=== PATIENT | male | born 1980 | race Caucasian/White ===

== ENCOUNTER 2018-04-12 19:46 | Emergency (ER) | payer OTHER ==
--- NOTE | 2018-04-12 22:17 | ED ---
General Adult HPI - General Chief complaint: Anxiety Stated complaint: not feeling well Time Seen by Provider: 04/12/18 21:57 Source: patient, family, RN notes reviewed, old records reviewed Mode of arrival: ambulatory Limitations: no limitations - History of Present Illness Initial comments: 37-year-old male history of PTSD, and anxiety presents with worsening anxiety. Patient is on multiple medications. He is followed by both psychiatry and neurosurgery, and neurology. He does have a remote history of intracranial tumor status post resection. He states that over the past several months he's had worsening issues with anxiety. He is also had both auditory and visual hallucinations. Patient denies suicidal or homicidal ideation. He believes that these issues are medication related. - Related Data Home Medications Medication Instructions Recorded Confirmed Desmopressin [Ddavp] 0.3 mg PO BID 04/12/18 04/12/18 Droxidopa [Northera] 100 mg PO TID 04/12/18 04/12/18 Fludrocortisone [Florinef] 0.1 mg PO DAILY 04/12/18 04/12/18 Hydrocortisone [Cortef] 15 mg PO DAILY@1200 04/12/18 04/12/18 Hydrocortisone [Cortef] 20 mg PO DAILY 04/12/18 04/12/18 Levothyroxine Sodium [Synthroid] 150 mcg PO DAILY 04/12/18 04/12/18 Loperamide HCl [Imodium A-D] 2 mg PO DAILY 04/12/18 04/12/18 Midodrine HCl [ProAmatine] 30 mg PO TID 04/12/18 04/12/18 Omeprazole 40 mg PO DAILY 04/12/18 04/12/18 PARoxetine HCL [Paxil] 40 mg PO DAILY 04/12/18 04/12/18 Potassium Chloride ER [K-Dur 20] 20 meq PO BID 04/12/18 04/12/18 Testosterone Cypionate 100 mg IM TU 04/12/18 04/12/18 [Depo-Testosterone] busPIRone HCl [Buspar] 10 mg PO TID 04/12/18 04/12/18 Allergies Allergy/AdvReac Type Severity Reaction Status Date / Time No Known Allergies Allergy Verified 04/12/18 22:20 Review of Systems ROS Statement: Those systems with pertinent positive or pertinent negative responses have been documented in the HPI. ROS Other: All systems not noted in ROS Statement are negative. Past Medical History Past Medical History: Cancer, Thyroid Disorder History of Any Multi-Drug Resistant Organisms: None Reported Additional Past Surgical History / Comment(s): sinus surgery Past Psychological History: Anxiety, Depression, PTSD Smoking Status: Current every day smoker Past Alcohol Use History: None Reported Past Drug Use History: None Reported General Exam Limitations: no limitations General appearance: alert, in no apparent distress Head exam: Present: atraumatic, normocephalic Eye exam: Present: normal appearance, PERRL, EOMI ENT exam: Present: normal exam, normal oropharynx Neck exam: Present: normal inspection, full ROM. Absent: tenderness Respiratory exam: Present: normal lung sounds bilaterally. Absent: respiratory distress, wheezes Cardiovascular Exam: Present: regular rate, normal rhythm GI/Abdominal exam: Present: soft. Absent: distended, tenderness, guarding Extremities exam: Present: normal inspection, normal capillary refill. Absent: pedal edema Back exam: Present: normal inspection, full ROM Neurological exam: Present: alert, oriented X3, CN II-XII intact. Absent: motor sensory deficit Psychiatric exam: Present: anxious Skin exam: Present: warm, dry, intact. Absent: cyanosis, diaphoretic Course Vital Signs 04/12/18 19:55 Temperature 99.1 F Pulse Rate 98 Respiratory 20 Rate Blood Pressure 151/90 O2 Sat by Pulse 97 Oximetry Medical Decision Making - Medical Decision Making Further history obtained, patient has had these symptoms ongoing, he was evaluated at [facility]. He did receive a workup at that time which included CAT scan, these records were reviewed, patient had computed tomography scan on March 04 which showed calcification in the sella turcica consistent with his history. Patient does have a neurologist, he does have a psychiatrist and therapist. His symptoms seem more neurological or psychiatric at this time. He is offered a psych evaluation the emergency department and he declines. He does have support system at home, he has no suicidal or homicidal ideation. He has an appointment with his primary care physician tomorrow. He will maintain this appointment and will follow-up with his neurologist and his psychiatrist. - Lab Data Result diagrams: 04/12/18 22:30 04/12/18 22:30 Lab Results 04/12/18 04/12/18 04/12/18 Range/Units 22:30 22:30 22:30 WBC 9.0 (3.8-10.6) k/uL RBC 4.70 (4.30-5.90) m/uL Hgb 13.8 (13.0-17.5) gm/dL Hct 40.7 (39.0-53.0) % MCV 86.8 (80.0-100.0) fL MCH 29.3 (25.0-35.0) pg MCHC 33.8 (31.0-37.0) g/dL RDW 15.0 (11.5-15.5) % Plt Count 378 (150-450) k/uL Neutrophils % 72 % Lymphocytes % 17 % Monocytes % 7 % Eosinophils % 2 % Basophils % 1 % Neutrophils # 6.5 (1.3-7.7) k/uL Lymphocytes # 1.6 (1.0-4.8) k/uL Monocytes # 0.7 (0-1.0) k/uL Eosinophils # 0.2 (0-0.7) k/uL Basophils # 0.1 (0-0.2) k/uL Sodium 138 (137-145) mmol/L Potassium 4.0 (3.5-5.1) mmol/L Chloride 102 (98-107) mmol/L Carbon Dioxide 24 (22-30) mmol/L Anion Gap 12 mmol/L BUN 15 (9-20) mg/dL Creatinine 0.90 (0.66-1.25) mg/dL Est GFR (CKD-EPI)AfAm >90 (>60 ml/min/1.73 sqM) Est GFR (CKD-EPI)NonAf >90 (>60 ml/min/1.73 sqM) Glucose 112 H (74-99) mg/dL Calcium 9.7 (8.4-10.2) mg/dL Total Bilirubin 0.2 (0.2-1.3) mg/dL AST 20 (17-59) U/L ALT 34 (21-72) U/L Alkaline Phosphatase 87 (38-126) U/L Total Protein 6.6 (6.3-8.2) g/dL Albumin 4.2 (3.5-5.0) g/dL Urine Opiates Screen Not Detected (NotDetected) Ur Oxycodone Screen Not Detected (NotDetected) Urine Methadone Screen Not Detected (NotDetected) Ur Propoxyphene Screen Not Detected (NotDetected) Ur Barbiturates Screen Not Detected (NotDetected) U Tricyclic Antidepress Not Detected (NotDetected) Ur Phencyclidine Scrn Not Detected (NotDetected) Ur Amphetamines Screen Not Detected (NotDetected) U Methamphetamines Scrn Not Detected (NotDetected) U Benzodiazepines Scrn Not Detected (NotDetected) Urine Cocaine Screen Not Detected (NotDetected) U Marijuana (THC) Screen Not Detected (NotDetected) Disposition Clinical Impression: Visual hallucination, Anxiety Disposition: HOME SELF-CARE Condition: Fair Instructions: Generalized Anxiety Disorder (ED), Hallucinations (ED) Additional Instructions: Please follow up with both her psychiatrist and her neurologist. Is patient prescribed a controlled substance at d/c from ED?: No Referrals: Alonso Rivas DO [Primary Care Provider] - 1-2 days Time of Disposition: 23:27
[2018-04-12 22:49] LABS: Basophils # (A) 0.1 k/uL (0-0.2); Basophils % (A) 1 %; Eosinophils # (A) 0.2 k/uL (0-0.7); Eosinophils % (A) 2 %; HCT 40.7 % (39.0-53.0); HGB 13.8 gm/dL (13.0-17.5); Lymphocytes # (A) 1.6 k/uL (1.0-4.8); Lymphocytes % (A) 17 %; MCH 29.3 pg (25.0-35.0); MCHC 33.8 g/dL (31.0-37.0); MCV 86.8 fL (80.0-100.0); Mean Platelet Volume 6.4; Monocytes # (A) 0.7 k/uL (0-1.0); Monocytes % (A) 7 %; Neutrophils # (A) 6.5 k/uL (1.3-7.7); Neutrophils % (A) 72 %; Platelet Count 378 k/uL (150-450)
[2018-04-12 22:58] LABS: ALT 34 U/L (21-72); AST 20 U/L (17-59); Albumin 4.2 g/dL (3.5-5.0); Alkaline Phosphatase 87 U/L (38-126); Anion Gap 12 mmol/L; Blood Urea Nitrogen 15 mg/dL (9-20); Calcium 9.7 mg/dL (8.4-10.2); Carbon Dioxide 24 mmol/L (22-30); Chloride 102 mmol/L (98-107); Glucose 112 mg/dL (74-99); Sodium 138 mmol/L (137-145); Total Bilirubin 0.2 mg/dL (0.2-1.3); Total Protein 6.6 g/dL (6.3-8.2)
[2018-04-12 23:04] LABS: Amphetamine Screen,Urine Not Detected (NotDetected); Barbiturate Screen,Urine Not Detected (NotDetected); Benzodiazepines Screen,Urine Not Detected (NotDetected); Cocaine Screen,Urine Not Detected (NotDetected); Methadone Screen, Urine Not Detected (NotDetected); Opiate Screen,Urine Not Detected (NotDetected); Oxycodone Screen, Urine Not Detected (NotDetected); Phencyclidine Screen,Urine Not Detected (NotDetected); Tricyclic Antidepressant,Urine Not Detected (NotDetected); Urn Cannabinoid Scrn Not Detected (NotDetected)
[2018-04-12 23:38] VITALS: BP 142/79; PULSE 107; RESP 18; TEMP 98
== END 2018-04-12 23:46 | disposition home or self-care (01) ==
LOC: EC 19:46
DX: F41.9 Anxiety disorder, unspecified (principal); R44.1 Visual hallucinations; R44.0 Auditory hallucinations; E07.9 Disorder of thyroid, unspecified; F32.9 Major depressive disorder, single episode, unspecified; F43.10 Post-traumatic stress disorder, unspecified; F17.200 Nicotine dependence, unspecified, uncomplicated; Z79.52 Long term (current) use of systemic steroids; Z79.899 Other long term (current) drug therapy
CPT/HCPCS: 36415; 80053; 80306; 85025; 99284

== ENCOUNTER 2019-07-23 11:10 | Emergency (ER) | payer OTHER ==
[2019-07-23 11:19] VITALS: RESP 17; TEMP 98.7
[2019-07-23] MEDS ORDERED: SODIUM CHLORIDE 0.9% 1,000 ML IV STA (11:33)
[2019-07-23] MEDS ORDERED: KETOROLAC 30 MG/ML 1 ML VIAL IVP STA (11:33)
--- NOTE | 2019-07-23 11:37 | ED ---
Abdominal Pain HPI - General Chief Complaint: Abdominal Pain Stated Complaint: RT FLANK PAIN Time Seen by Provider: 07/23/19 11:30 Source: patient, EMS, RN notes reviewed Mode of arrival: EMS Limitations: no limitations - History of Present Illness Initial Comments: This a 38 year old male presents emergency Department chief complaint of right flank pain. Patient states this was a sudden onset this morning after urinating. He has no history of stones. Patient has slight nausea but has resolved. No fevers or chills no prior abdominal surgeries. Patient has a history cancer.. Patient has no dysuria denies any right-sided abdominal pain no diarrhea no constipation. - Related Data Home Medications Medication Instructions Recorded Confirmed Desmopressin [Ddavp] 0.2 mg PO DAILY@0730 04/12/18 07/23/19 Fludrocortisone [Florinef] 0.1 mg PO DAILY@72904/12/18 07/23/19 Hydrocortisone [Cortef] 15 mg PO DAILY@1200 04/12/18 07/23/19 Hydrocortisone [Cortef] 20 mg PO DAILY@30 04/12/18 07/23/19 Loperamide HCl [Imodium A-D] 2 mg PO DAILY PRN 04/12/18 07/23/19 Midodrine HCl [ProAmatine] 10 mg PO TID@0730,1200,1630 04/12/18 07/23/19 Omeprazole 40 mg PO DAILY@162904/12/18 07/23/19 PARoxetine HCL [Paxil] 60 mg PO DAILY@72904/12/18 07/23/19 Potassium Chloride ER [K-Dur 20] 20 meq PO BID@1200,1630 04/12/18 07/23/19 Testosterone Cypionate 100 mg IM TU 04/12/18 07/23/19 [Depo-Testosterone] Aspirin EC [Ecotrin Low Dose] 81 mg PO DAILY@16307/23/19 07/23/19 Desmopressin [Ddavp] 0.1 mg PO DAILY@162907/23/19 07/23/19 Droxidopa [Northera] 300 mg PO TID@0730,1200,1630 07/23/19 07/23/19 Levothyroxine Sodium [Synthroid] 200 mcg PO DAILY@0730 07/23/19 07/23/19 Pyridoxine [Vitamin B-6] 50 mg PO DAILY@0730 07/23/19 07/23/19 Topiramate [Topamax] 50 mg PO BID@0730,1630 07/23/19 07/23/19 busPIRone HCL 15 mg PO TID@0730,1200,1630 07/23/19 07/23/19 lamoTRIgine [LaMICtal] 200 mg PO BID@0730,1630 07/23/19 07/23/19 Previous Rx's Medication Instructions Recorded Ketorolac [Toradol] 10 mg PO Q8HR #15 tab 07/23/19 Ondansetron Odt [Zofran Odt] 4 mg PO Q8HR PRN #10 tab 07/23/19 Tamsulosin [Flomax] 0.4 mg PO DAILY #7 cap 07/23/19 Allergies Allergy/AdvReac Type Severity Reaction Status Date / Time No Known Allergies Allergy Verified 07/23/19 11:32 Review of Systems ROS Statement: Those systems with pertinent positive or pertinent negative responses have been documented in the HPI. ROS Other: All systems not noted in ROS Statement are negative. Past Medical History Past Medical History: Cancer, Thyroid Disorder History of Any Multi-Drug Resistant Organisms: None Reported Additional Past Surgical History / Comment(s): sinus surgery Past Psychological History: Anxiety, Depression, PTSD Smoking Status: Current every day smoker Past Alcohol Use History: None Reported Past Drug Use History: Marijuana General Exam Limitations: no limitations General appearance: alert, in no apparent distress Head exam: Present: atraumatic, normocephalic, normal inspection Eye exam: Present: normal appearance, PERRL, EOMI. Absent: scleral icterus, conjunctival injection, periorbital swelling Neck exam: Present: normal inspection, full ROM. Absent: tenderness, meningismus, lymphadenopathy Respiratory exam: Present: normal lung sounds bilaterally. Absent: respiratory distress, wheezes, rales, rhonchi, stridor Cardiovascular Exam: Present: regular rate, normal rhythm, normal heart sounds. Absent: systolic murmur, diastolic murmur, rubs, gallop, clicks GI/Abdominal exam: Present: soft, tenderness (Mild right-sided), normal bowel sounds. Absent: distended, guarding, rebound, rigid Back exam: Present: CVA tenderness (R). Absent: CVA tenderness (L) Psychiatric exam: Present: normal affect, normal mood Skin exam: Present: warm, dry, intact, normal color. Absent: rash Course Vital Signs 07/23/19 11:13 Temperature 98.7 F Pulse Rate 66 Respiratory 17 Rate Blood Pressure 164/93 O2 Sat by Pulse 98 Oximetry - Reevaluation(s) Reevaluation #1: 07/23/19 13:00 Patient feels comfortable throat total updated on results. Medical Decision Making - Medical Decision Making Patient lab CT urinalysis. Urinalysis reveals hematuria. CT shows evidence of mild obstructive 4 mm right ureteral stone. Patient was improved after Toradol. Patient is stable for discharge will follow-up with urology if needed will be provided Ruth's, Toradol, Zofran, codeine. - Lab Data Result diagrams: 07/23/19 11:45 07/23/19 11:45 Lab Results 07/23/19 07/23/19 07/23/19 Range/Units 11:45 11:45 11:45 WBC 12.3 H (3.8-10.6) k/uL RBC 4.86 (4.30-5.90) m/uL Hgb 13.2 (13.0-17.5) gm/dL Hct 43.0 (39.0-53.0) % MCV 88.5 (80.0-100.0) fL MCH 27.2 (25.0-35.0) pg MCHC 30.7 L (31.0-37.0) g/dL RDW 15.8 H (11.5-15.5) % Plt Count 374 (150-450) k/uL Neutrophils % 81 % Lymphocytes % 10 % Monocytes % 5 % Eosinophils % 1 % Basophils % 1 % Neutrophils # 10.0 H (1.3-7.7) k/uL Lymphocytes # 1.3 (1.0-4.8) k/uL Monocytes # 0.7 (0-1.0) k/uL Eosinophils # 0.2 (0-0.7) k/uL Basophils # 0.1 (0-0.2) k/uL Sodium 142 (137-145) mmol/L Potassium 4.1 (3.5-5.1) mmol/L Chloride 110 H (98-107) mmol/L Carbon Dioxide 22 (22-30) mmol/L Anion Gap 10 mmol/L BUN 15 (9-20) mg/dL Creatinine 1.10 (0.66-1.25) mg/dL Est GFR (CKD-EPI)AfAm >90 (>60 ml/min/1.73 sqM) Est GFR (CKD-EPI)NonAf 86 (>60 ml/min/1.73 sqM) Glucose 119 H (74-99) mg/dL Calcium 9.6 (8.4-10.2) mg/dL Total Bilirubin 0.5 (0.2-1.3) mg/dL AST 31 (17-59) U/L ALT 38 (21-72) U/L Alkaline Phosphatase 61 (38-126) U/L Total Protein 7.1 (6.3-8.2) g/dL Albumin 4.3 (3.5-5.0) g/dL Amylase 42 (30-110) U/L Lipase 50 (23-300) U/L Urine Color Yellow Urine Appearance Turbid (Clear) Urine pH 7.0 (5.0-8.0) Ur Specific [place] 1.026 (1.001-1.035) Urine Protein Trace H (Negative) Urine Glucose (UA) Negative (Negative) Urine Ketones Negative (Negative) Urine Blood Moderate H (Negative) Urine Nitrite Negative (Negative) Urine Bilirubin Negative (Negative) Urine Urobilinogen <2.0 (<2.0) mg/dL Ur Leukocyte Esterase Negative (Negative) Urine RBC 152 H (0-5) /hpf Urine WBC 5 (0-5) /hpf Amorphous Sediment Moderate H (None) /hpf Urine Mucus Occasional H (None) /hpf Disposition Clinical Impression: Right ureteral calculus Disposition: HOME SELF-CARE Condition: Stable Instructions (If sedation given, give patient instructions): Kidney Stones (ED) Additional Instructions: Please return to the Emergency Department if symptoms worsen or any other concerns. Prescriptions: Tamsulosin [Flomax] 0.4 mg PO DAILY #7 cap Ketorolac [Toradol] 10 mg PO Q8HR #15 tab Ondansetron Odt [Zofran Odt] 4 mg PO Q8HR PRN #10 tab PRN Reason: Nausea Is patient prescribed a controlled substance at d/c from ED?: No Referrals: None,Stated [Primary Care Provider] - 1-2 days Bishop Valdivia MD [STAFF PHYSICIAN] - 1-2 days Time of Disposition: 13:01
[2019-07-23 12:00] LABS: Basophils # (A) 0.1 k/uL (0-0.2); Basophils % (A) 1 %; Eosinophils # (A) 0.2 k/uL (0-0.7); Eosinophils % (A) 1 %; HGB 13.2 gm/dL (13.0-17.5); Lymphocytes # (A) 1.3 k/uL (1.0-4.8); Lymphocytes % (A) 10 %; MCH 27.2 pg (25.0-35.0); MCHC 30.7 g/dL (31.0-37.0); MCV 88.5 fL (80.0-100.0); Mean Platelet Volume 7.2; Monocytes # (A) 0.7 k/uL (0-1.0); Monocytes % (A) 5 %; Neutrophils % (A) 81 %; Platelet Count 374 k/uL (150-450); RBC 4.86 m/uL (4.30-5.90); RDW 15.8 % (11.5-15.5); WBC 12.3 k/uL (3.8-10.6)
[2019-07-23 12:06] LABS: Amorphous Sediment,Urine Moderate /hpf; Appearance,Urine Turbid (Clear); Bilirubin,Urine Negative (Negative); Blood,Urine Moderate (Negative); Color,Urine Yellow; Glucose,Urine (UA) Negative (Negative); Ketones,Urine Negative (Negative); Leukocyte Esterase,Urine Negative (Negative); Mucus,Urine Occasional /hpf; Nitrite,Urine Negative (Negative); Protein,Urine Trace (Negative); RBC,Urine 152 /hpf (0-5); Specific Gravity,Urine 1.026 (1.001-1.035); Urobilinogen,Urine <2.0 mg/dL (<2.0)
[2019-07-23 12:16] LABS: ALT 38 U/L (21-72); AST 31 U/L (17-59); African American GFR (CKD) >90 (>60 ml/min/1.73 sqM); Albumin 4.3 g/dL (3.5-5.0); Alkaline Phosphatase 61 U/L (38-126); Amylase 42 U/L (30-110); Anion Gap 10 mmol/L; Blood Urea Nitrogen 15 mg/dL (9-20); Calcium 9.6 mg/dL (8.4-10.2); Carbon Dioxide 22 mmol/L (22-30); Chloride 110 mmol/L (98-107); Glucose 119 mg/dL (74-99); Sodium 142 mmol/L (137-145); Total Bilirubin 0.5 mg/dL (0.2-1.3); Total Protein 7.1 g/dL (6.3-8.2)
[2019-07-23 12:18] LABS: Potassium 4.1 mmol/L (3.5-5.1)
--- NOTE | 2019-07-23 12:57 | CT ---
EXAMINATION TYPE: CT abdomen pelvis wo con DATE OF EXAM: 07/23/2019 COMPARISON: None HISTORY: 38-year-old male Rt flank pain CT DLP: 1725.9 mGycm. Automated exposure control for dose reduction was used. TECHNIQUE: Contiguous axial scanning of the abdomen and pelvis without IV contrast. Coronal and sagit surya reconstructions performed. FINDINGS: Heart normal size without pericardial effusion. Lung bases clear without pleural effusion. Liver enlarged at 19.7 cm. There may be mild underlying fatty infiltration. Gallbladder, adrenal glands, left kidney, spleen, and pancreas show no gross abnormality by noncontra st CT. There is mild pelvocaliectasis on the right and slight asymmetric mural prominence on the right. Ther e is a 4 mm calculus at the distal right ureter, axial image 129. No dilated small bowel, free fluid, or free air. No mesenteric or retroperitoneal lymphadenopathy. Scattered mild stool. Normal appendix. No pericolonic inflammatory changes. Circumferential bladder wall thickening. Left-sided pelvic phlebolith. Patulous left inguinal canal. No abnormal fluid collection in the pelvis or pelvic lymphadenopathy. Bones: Mild degenerative changes of the hips with prominent anterior and these junctions and fibrocys tic change. No osseous destructive process. IMPRESSION: 1. A 4 mm distal right ureteral calculus with mild obstructive uropathy. 2. Hepatomegaly (19.7 cm). 3. 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 Consider outp atient orthopedic referral.
[2019-07-23] MEDS ORDERED: ACET/COD 300 MG/30 MG STARTER PACK 6 TAB BTL PO STA (13:01)
[2019-07-23 13:20] VITALS: BP 157/94; PULSE 68
== END 2019-07-23 13:20 | disposition home or self-care (01) ==
LOC: EC 11:10
DX: N20.1 Calculus of ureter (principal); F17.200 Nicotine dependence, unspecified, uncomplicated; E07.9 Disorder of thyroid, unspecified; F43.10 Post-traumatic stress disorder, unspecified; F41.9 Anxiety disorder, unspecified; F32.9 Major depressive disorder, single episode, unspecified; Z79.82 Long term (current) use of aspirin; Z79.899 Other long term (current) drug therapy
CPT/HCPCS: 36415; 80053; 82150; 83690; 85025; 81001; 74176; 99284; 96374; 96361; J1885

== ENCOUNTER 2021-06-05 12:50 | Emergency (ER) | payer MEDICARE, OTHER ==
[2021-06-05 13:29] VITALS: BP 144/83; PULSE 87; RESP 18; TEMP 98.3
--- NOTE | 2021-06-05 13:39 | ED ---
Extremity Problem HPI - General Chief complaint: Extremity Problem,Nontraumatic Stated complaint: Rt Leg Numbness/Pain/Adrenal Insufficiency Time Seen by Provider: 06/05/21 13:32 Source: patient Mode of arrival: wheelchair Limitations: no limitations - History of Present Illness Initial comments: 40-year-old male presents to emergency Department with a chief complaint of right leg pain. Patient reports this is typical type of pain for him and has been occurring for many years but now it is worse than usual. He states it feels like a nerve pain that is sharp shooting in nature. Patient reports it can start randomly throughout the leg and move in no specific direction. He also reports bilateral lower extremity numbness but states has been persistent for many years ever since he was in the . He denies taking any medication to alleviate the symptoms. He denies any color changes in the leg or the foot. He denies any back pain or injuries to the leg. - Related Data Home Medications Medication Instructions Recorded Confirmed Desmopressin [Ddavp] 0.2 mg PO DAILY@72904/12/18 07/23/19 Fludrocortisone [Florinef] 0.1 mg PO DAILY@72904/12/18 07/23/19 Hydrocortisone [Cortef] 15 mg PO DAILY@1200 04/12/18 07/23/19 Hydrocortisone [Cortef] 20 mg PO DAILY@72904/12/18 07/23/19 Loperamide HCl [Imodium A-D] 2 mg PO DAILY PRN 04/12/18 07/23/19 Midodrine HCl [ProAmatine] 10 mg PO TID@0730,1200,1630 04/12/18 07/23/19 Omeprazole 40 mg PO DAILY@162904/12/18 07/23/19 PARoxetine HCL [Paxil] 60 mg PO DAILY@72904/12/18 07/23/19 Potassium Chloride ER [K-Dur 20] 20 meq PO BID@1200,1630 04/12/18 07/23/19 Testosterone Cypionate 100 mg IM TU 04/12/18 07/23/19 [Depo-Testosterone] Aspirin EC [Ecotrin Low Dose] 81 mg PO DAILY@162907/23/19 07/23/19 Desmopressin [Ddavp] 0.1 mg PO DAILY@162907/23/19 07/23/19 Droxidopa [Northera] 300 mg PO TID@0730,1200,1630 07/23/19 07/23/19 Levothyroxine Sodium [Synthroid] 200 mcg PO DAILY@0730 07/23/19 07/23/19 Pyridoxine [Vitamin B-6] 50 mg PO DAILY@0730 07/23/19 07/23/19 Topiramate [Topamax] 50 mg PO BID@0730,1630 07/23/19 07/23/19 busPIRone HCL 15 mg PO TID@0730,1200,1630 07/23/19 07/23/19 lamoTRIgine [LaMICtal] 200 mg PO BID@0730,1630 07/23/19 07/23/19 Previous Rx's Medication Instructions Recorded Ketorolac [Toradol] 10 mg PO Q8HR #15 tab 07/23/19 Ondansetron Odt [Zofran Odt] 4 mg PO Q8HR PRN #10 tab 07/23/19 Tamsulosin [Flomax] 0.4 mg PO DAILY #7 cap 07/23/19 Gabapentin 600 mg PO BID 3 Days #6 tab 06/05/21 Allergies Allergy/AdvReac Type Severity Reaction Status Date / Time No Known Allergies Allergy Verified 06/05/21 13:29 Review of Systems ROS Statement: Those systems with pertinent positive or pertinent negative responses have been documented in the HPI. ROS Other: All systems not noted in ROS Statement are negative. Past Medical History Past Medical History: Cancer, Thyroid Disorder History of Any Multi-Drug Resistant Organisms: None Reported Additional Past Surgical History / Comment(s): sinus surgery Past Psychological History: Anxiety, Depression, PTSD Past Alcohol Use History: None Reported Past Drug Use History: Marijuana General Exam Limitations: no limitations General appearance: alert, in no apparent distress Head exam: Present: atraumatic, normocephalic, normal inspection Eye exam: Present: normal appearance Pupils: Present: normal accommodation ENT exam: Present: normal exam, normal oropharynx, mucous membranes moist Neck exam: Present: normal inspection, full ROM. Absent: tenderness, lymphadenopathy Respiratory exam: Present: normal lung sounds bilaterally. Absent: respiratory distress, wheezes, rales Cardiovascular Exam: Present: regular rate, normal rhythm, normal heart sounds. Absent: systolic murmur, diastolic murmur GI/Abdominal exam: Present: soft. Absent: distended, tenderness, guarding, rebound Extremities exam: Present: normal inspection, full ROM, normal capillary refill, other (+2 dorsalis pedis and posterior tibialis bilaterally.). Absent: tenderness, pedal edema, joint swelling, calf tenderness Back exam: Present: normal inspection, full ROM. Absent: tenderness Neurological exam: Present: alert, oriented X3 Psychiatric exam: Present: normal affect, normal mood Skin exam: Present: warm, dry, intact, normal color Course Vital Signs 06/05/21 13:25 Temperature 98.3 F Pulse Rate 87 Respiratory 18 Rate Blood Pressure 144/83 O2 Sat by Pulse 98 Oximetry Medical Decision Making - Medical Decision Making 40-year-old male presents to emergency Department with chief complaint of leg pain. On physical examination, there is no significant reproducible pain in the lower extremity. No signs of limb ischemia. Palpable DP and PT bilaterally. His leg numbness of the persistent for many years. This nervelike pain is also been present for many years, however today it is worse than usual without any obvious signs of injuries. Dr. Mejia also examined the patient and is in agreement with the treatment plan. Patient was given Dilaudid for pain. Will be discharged with a short course of gabapentin. Advised to follow-up with primary care physician. Return parameters were thoroughly discussed the patient was standing agreeable. Disposition Clinical Impression: Leg pain Disposition: HOME SELF-CARE Condition: Stable Instructions (If sedation given, give patient instructions): Gabapentin (By mouth) Additional Instructions: Please return to the Emergency Department if symptoms worsen or any other concerns. Prescriptions: Gabapentin 600 mg PO BID 3 Days #6 tab Is patient prescribed a controlled substance at d/c from ED?: Yes If prescribed controlled substance>3 days was MAPS reviewed?: Prescribed <3 Days Referrals: Nonstaff,Physician [Primary Care Provider] - 1-2 days Time of Disposition: 15:17
[2021-06-05] MEDS ORDERED: HYDROmorphone 0.5 MG/0.5 ML SYRINGE IM STA (14:02)
== END 2021-06-05 15:25 | disposition home or self-care (01) ==
LOC: EC 12:50
DX: M79.604 Pain in right leg (principal); R20.0 Anesthesia of skin; E07.9 Disorder of thyroid, unspecified; Z79.899 Other long term (current) drug therapy
CPT/HCPCS: 99283; 96372; J1170

== ENCOUNTER → 2021-11-16 | Outpatient (CLI) | payer MEDICARE, OTHER ==
[2021-11-16 16:40] LABS: Basophils # (A) 0.1 k/uL (0-0.2); Basophils % (A) 1 %; Eosinophils # (A) 0.2 k/uL (0-0.7); Eosinophils % (A) 4 %; HCT 40.4 % (39.0-53.0); HGB 13.6 gm/dL (13.0-17.5); Lymphocytes # (A) 1.9 k/uL (1.0-4.8); Lymphocytes % (A) 29 %; MCH 28.4 pg (25.0-35.0); MCHC 33.7 g/dL (31.0-37.0); MCV 84.4 fL (80.0-100.0); Monocytes # (A) 0.4 k/uL (0-1.0); Monocytes % (A) 6 %; Neutrophils # (A) 3.8 k/uL (1.3-7.7); Neutrophils % (A) 58 %; Platelet Count 293 k/uL (150-450); RBC 4.79 m/uL (4.30-5.90); RDW 15.1 % (11.5-15.5); WBC 6.5 k/uL (3.8-10.6)
[2021-11-16 16:57] LABS: ALT 30 U/L (4-49); AST 33 U/L (17-59); African American GFR (CKD) >90 (>60 ml/min/1.73 sqM); Albumin 4.4 g/dL (3.5-5.0); Albumin/Globulin Ratio 1.5; Alkaline Phosphatase 68 U/L (38-126); Anion Gap 12 mmol/L; Blood Urea Nitrogen 17 mg/dL (9-20); Calcium 9.8 mg/dL (8.4-10.2); Carbon Dioxide 23 mmol/L (22-30); Chloride 104 mmol/L (98-107); Globulin 2.9 g/dL; Glucose 100 mg/dL (74-99); LDH 390 U/L (313-618); Magnesium 1.9 mg/dL (1.6-2.3); Non-African American GFR(CKD) >90 (>60 ml/min/1.73 sqM); Phosphorus 4.2 mg/dL (2.5-4.5); Potassium 4.2 mmol/L (3.5-5.1); Sodium 139 mmol/L (137-145); Total Bilirubin 0.4 mg/dL (0.2-1.3); Total Protein 7.3 g/dL (6.3-8.2)
== END | disposition home or self-care (01) ==
LOC: LABWHC1 16:00
PROVIDERS: ATTEND Internal Medicine Hematology
DX: C41.2 Malignant neoplasm of vertebral column (principal)
CPT/HCPCS: 36415; 80053; 83615; 83735; 84100; 85025

== ENCOUNTER 2022-02-14 20:16 | Emergency (ER) | payer MEDICARE, OTHER ==
[2022-02-14 20:52] VITALS: TEMP 98.1
--- NOTE | 2022-02-14 22:54 | ED ---
General Adult HPI - General Chief complaint: Fall Stated complaint: Fall Time Seen by Provider: 02/14/22 22:30 Source: patient, family (parents), EMS, RN notes reviewed, old records reviewed Mode of arrival: wheelchair Limitations: no limitations - History of Present Illness Initial comments: This is a 41-year-old male presents to the emergency room with his parents after tripping over a step in the garage. Parents state that he was confused for about 15 minutes and did bite his tongue. They state he does have a history of seizures but not aware if this was related to a seizure. He does have a history of brain cancer, recent surgery for pilonidal cyst 3 weeks ago and does have an appointment with his doctor tomorrow for chronic neuropathy low back pain. Parents brought him in today because they were concerned regarding his confusion after the fall. They stated that he is back to his normal self. Patient denies any head pain or neck pain. -: hour(s) Location: back Severity scale (1-10): 4 Quality: constant Consistency: constant Improves with: none Worsens with: movement (walking) Associated Symptoms: denies other symptoms - Related Data Home Medications Medication Instructions Recorded Confirmed Desmopressin [Ddavp] 0.2 mg PO DAILY@0730 04/12/18 07/23/19 Fludrocortisone [Florinef] 0.1 mg PO DAILY@0730 04/12/18 07/23/19 Hydrocortisone [Cortef] 15 mg PO DAILY@1200 04/12/18 07/23/19 Hydrocortisone [Cortef] 20 mg PO DAILY@0730 04/12/18 07/23/19 Loperamide HCl [Imodium A-D] 2 mg PO DAILY PRN 04/12/18 07/23/19 Midodrine HCl [ProAmatine] 10 mg PO TID@0730,1200,1630 04/12/18 07/23/19 Omeprazole 40 mg PO DAILY@1630 04/12/18 07/23/19 PARoxetine HCL [Paxil] 60 mg PO DAILY@0730 04/12/18 07/23/19 Potassium Chloride ER [K-Dur 20] 20 meq PO BID@1200,1630 04/12/18 07/23/19 Testosterone Cypionate 100 mg IM TU 04/12/18 07/23/19 [Depo-Testosterone] Aspirin EC [Ecotrin Low Dose] 81 mg PO DAILY@1630 07/23/19 07/23/19 Desmopressin [Ddavp] 0.1 mg PO DAILY@1630 07/23/19 07/23/19 Droxidopa [Northera] 300 mg PO TID@0730,1200,1630 07/23/19 07/23/19 Levothyroxine Sodium [Synthroid] 200 mcg PO DAILY@0730 07/23/19 07/23/19 Pyridoxine [Vitamin B-6] 50 mg PO DAILY@0730 07/23/19 07/23/19 Topiramate [Topamax] 50 mg PO BID@0730,1630 07/23/19 07/23/19 busPIRone HCL 15 mg PO TID@0730,1200,1630 07/23/19 07/23/19 lamoTRIgine [LaMICtal] 200 mg PO BID@0730,1630 07/23/19 07/23/19 Previous Rx's Medication Instructions Recorded Ketorolac [Toradol] 10 mg PO Q8HR #15 tab 07/23/19 Ondansetron Odt [Zofran Odt] 4 mg PO Q8HR PRN #10 tab 07/23/19 Tamsulosin [Flomax] 0.4 mg PO DAILY #7 cap 07/23/19 Gabapentin 600 mg PO BID 3 Days #6 tab 06/05/21 Allergies Allergy/AdvReac Type Severity Reaction Status Date / Time No Known Allergies Allergy Verified 06/05/21 13:29 Review of Systems ROS Statement: Those systems with pertinent positive or pertinent negative responses have been documented in the HPI. ROS Other: All systems not noted in ROS Statement are negative. 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 Absent: scleral icterus, conjunctival injection, periorbital swelling, periorbital tenderness ENT exam: Present: normal oropharynx, mucous membranes moist, other (right side tongue swelling) Neck exam: Present: normal inspection, full ROM. Absent: tenderness, meningismus, lymphadenopathy Respiratory exam: Present: normal lung sounds bilaterally. Absent: respiratory distress, accessory muscle use Cardiovascular Exam: Present: tachycardia GI/Abdominal exam: Present: soft. Absent: distended, tenderness Extremities exam: Present: normal capillary refill. Absent: pedal edema, calf tenderness Back exam: Present: other (Small amount of white exudate from drainage of piloni stephan cyst just 3 weeks ago, follow-up appointment tomorrow) Neurological exam: Present: alert, oriented X3 Expanded Patient oriented to: Present: person, place, time Speech: Present: fluid speech Cranial nerves: EOM's Intact: Normal, Gag Reflex: Normal, Tongue Deviation: Normal Motor strength exam: RUE: 5, LUE: 5, RLE: 4, LLE: 4 Eye Response: (4) open spontaneously Motor Response: (6) obeys commands Verbal Response: (5) oriented [place] Total: 15 Psychiatric exam: Present: normal affect, normal mood Skin exam: Present: warm, dry, normal color. Absent: cyanosis, diaphoretic Course Vital Signs 02/14/22 02/14/22 20:49 23:18 Temperature 98.1 F Pulse Rate 114 H 106 H Respiratory 18 16 Rate Blood Pressure 141/87 138/83 O2 Sat by Pulse 98 98 Oximetry Medical Decision Making - Medical Decision Making 41-year-old male presents with fall at home with approximately 15 minutes of confusion after the fall. Patient denies headache, no neck pain, no injuries from the fall. He does have chronic low back pain with radiculopathy and has an appointment tomorrow to see his doctor for possible placement on Lyrica since Neurontin was not working. Parents state that he is acting his normal self. He does have history of seizures and brain cancer and is currently on experimental treatment. This may have been a seizure since patient seemed confused which is consistent with a postictal state for approximately 15 minutes. Vital signs are stable. I did offer a CT which they declined. They're agreeable to being discharged home and following up with their primary care doctor tomorrow as scheduled. Advised him to return to the emergency room with any new or concerning symptoms. Case discussed with Dr. Singh Disposition Clinical Impression: Fall Disposition: HOME SELF-CARE Condition: Good Instructions (If sedation given, give patient instructions): Fall Prevention (E D) Additional Instructions: Return to the emergency room with any new or concerning symptoms. Keep your appointment with your primary care doctor tomorrow for your back pain. Please let your doctor know that you fell today. Is patient prescribed a controlled substance at d/c from ED?: No Referrals: Nonstaff,Physician [Primary Care Provider] - 1-2 days Time of Disposition: 22:52
[2022-02-14 23:19] VITALS: BP 138/83; PULSE 106; RESP 16
== END 2022-02-14 23:18 | disposition home or self-care (01) ==
LOC: EC 20:16
DX: R41.0 Disorientation, unspecified (principal); W18.39XA Other fall on same level, initial encounter
CPT/HCPCS: 99284

== ENCOUNTER 2023-06-18 19:09 | Emergency (ER) | payer MEDICARE, OTHER ==
[2023-06-18 19:16] VITALS: RESP 20; TEMP 98.9
[2023-06-18] MEDS ORDERED: SULFAMETH-TMP DS STARTER PACK 2 TAB BTL PO STA (20:29)
--- NOTE | 2023-06-18 20:31 | ED ---
Skin/Abscess/FB HPI - General Chief complaint: Skin/Abscess/Foreign Body Stated complaint: Wound on R Buttock Cheek Time Seen by Provider: 06/18/23 19:37 Source: patient Mode of arrival: wheelchair Limitations: no limitations - History of Present Illness Initial comments: This is a 42-year-old male who presents to the emergency department for concerns of his surgical incision opening up. States that at the [facility] in [place], he had surgery 3 weeks ago to remove a pilonidal cyst, which had become a recurrent problem for him. While in the shower today, the sutures opened up. Patient denies any pain associated with this. His father is concerned about the depth of the incision. Patient is not currently on antibiotics. Has a follow-up with the surgeon next week. - Related Data Home Medications Medication Instructions Recorded Confirmed Desmopressin [Ddavp] 0.2 mg PO DAILY@0730 04/12/18 07/23/19 Fludrocortisone [Florinef] 0.1 mg PO DAILY@0730 04/12/18 07/23/19 Hydrocortisone [Cortef] 15 mg PO DAILY@1200 04/12/18 07/23/19 Hydrocortisone [Cortef] 20 mg PO DAILY@0730 04/12/18 07/23/19 Loperamide HCl [Imodium A-D] 2 mg PO DAILY PRN 04/12/18 07/23/19 Midodrine HCl [ProAmatine] 10 mg PO TID@0730,1200,1630 04/12/18 07/23/19 Omeprazole 40 mg PO DAILY@1630 04/12/18 07/23/19 PARoxetine HCL [Paxil] 60 mg PO DAILY@0730 04/12/18 07/23/19 Potassium Chloride ER [K-Dur 20] 20 meq PO BID@1200,1630 04/12/18 07/23/19 Testosterone Cypionate 100 mg IM TU 04/12/18 07/23/19 [Depo-Testosterone] Aspirin EC [Ecotrin Low Dose] 81 mg PO DAILY@1630 07/23/19 07/23/19 Desmopressin [Ddavp] 0.1 mg PO DAILY@1630 07/23/19 07/23/19 Droxidopa [Northera] 300 mg PO TID@0730,1200,1630 07/23/19 07/23/19 Levothyroxine Sodium [Synthroid] 200 mcg PO DAILY@0730 07/23/19 07/23/19 Pyridoxine [Vitamin B-6] 50 mg PO DAILY@0730 07/23/19 07/23/19 Topiramate [Topamax] 50 mg PO BID@0730,1630 07/23/19 07/23/19 busPIRone HCL 15 mg PO TID@0730,1200,1630 07/23/19 07/23/19 lamoTRIgine [LaMICtal] 200 mg PO BID@0730,1630 07/23/19 07/23/19 Previous Rx's Medication Instructions Recorded Ketorolac [Toradol] 10 mg PO Q8HR #15 tab 07/23/19 Ondansetron Odt [Zofran Odt] 4 mg PO Q8HR PRN #10 tab 07/23/19 Tamsulosin [Flomax] 0.4 mg PO DAILY #7 cap 07/23/19 Gabapentin 600 mg PO BID 3 Days #6 tab 06/05/21 Sulfamethox-Tmp 800-160Mg [Bactrim 1 tab PO Q12HR 10 Days #20 tab 06/18/23 DS 800-160 mg] Allergies Allergy/AdvReac Type Severity Reaction Status Date / Time pregabalin Allergy Confusion Verified 06/18/23 19:16 Review of Systems ROS Statement: Those systems with pertinent positive or pertinent negative responses have been documented in the HPI. ROS Other: All systems not noted in ROS Statement are negative. Past Medical History Past Medical History: Cancer, Thyroid Disorder History of Any Multi-Drug Resistant Organisms: None Reported Additional Past Surgical History / Comment(s): sinus surgery, skin flap Past Psychological History: Anxiety, Depression, PTSD Smoking Status: Vaper Past Alcohol Use History: None Reported Past Drug Use History: Marijuana General Exam Limitations: no limitations General appearance: alert, in no apparent distress Head exam: Present: atraumatic, normocephalic, normal inspection Respiratory exam: Present: normal lung sounds bilaterally. Absent: respiratory distress, wheezes, rales, rhonchi, stridor Cardiovascular Exam: Present: regular rate, normal rhythm, normal heart sounds. Absent: systolic murmur, diastolic murmur, rubs, gallop, clicks Rectal exam: Present: other (Large open incision over the gluteal cleft consistent with recent surgery. No surrounding erythema, drainage, or tenderness) Neurological exam: Present: alert, oriented X3, CN II-XII intact Psychiatric exam: Present: normal affect, normal mood Course Vital Signs 06/18/23 06/18/23 06/18/23 19:11 20:03 20:49 Temperature 98.9 F Pulse Rate 107 H 78 80 Respiratory 20 20 20 Rate Blood Pressure 187/80 160/86 138/96 O2 Sat by Pulse 99 98 98 Oximetry Medical Decision Making - Medical Decision Making This is a 42-year-old male who presents to the emergency department for problems with his surgical incision opening up. Was pt. sent in by a medical professional or institution? @ -No Did you speak to anyone other than the patient for history? @ -No Did you review nursing and triage notes? @ -Yes, and I agree, it is accurate with regards to the patient's symptoms. Were old charts reviewed? @ -No Differential Diagnosis? @ -Not applicable EKG interpreted by me (3pts min.)? @ -Not obtained X-rays interpreted by me (1pt min.)? @ -Not obtained CT interpreted by me (1pt min.)? @ -Not obtained U/S interpreted by me (1pt. min.)? @ -Not obtained What testing was considered but not performed? (CT, X-rays, U/S, labs)? Why? @ -None What meds were considered but not given? Why? @ -None Did you discuss the management of the patient with other professionals? @ -No Did you reconcile home meds? @ -No Was smoking cessation discussed for >3mins.? @ -No Was critical care preformed (if so, how long)? @ -No Were there social determinants of health that impacted care today? How? (Homelessness, low income, unemployed, alcoholism, drug addiction, transportation, low edu. Level, literacy, decrease access to med. care, detention, rehab)? @ -No Was there de-escalation of care discussed even if they declined? (Discuss DNR or withdrawal of care, Hospice)? @ -No What co-morbidities impacted this encounter? (DM, HTN, Smoking, COPD, CAD, Cancer, CVA, Hep., AIDS, mental health diagnosis, sleep apnea, morbid obesity)? @ -None Was patient admitted / discharged? @ -Discharged. The incision itself had completely opened up. The incision was clean and there was no evidence of infection. Discussed with the patient that because of how long ago the surgery was, this is not something we are going to close, as there is a risk of trapping an infection. I did apply Steri-Strips over a couple of areas to keep this protected, however the wound was not approximated. Otherwise advised to keep this covered. Given the depth of the wound and concern for infection, he was given a prescription for a course of Bactrim. He is instructed to contact his surgeon regarding this issue as well and follow up as scheduled. Undiagnosed new problem with uncertain prognosis? @ -None Drug Therapy requiring intensive monitoring for toxicity (Heparin, Nitro, Insulin, Cardizem)? @ -None Were any procedures done? @ -None Diagnosis/symptom? @ -S/P pilonidal cyst removal, open surgical incision Acute, or Chronic, or Acute on Chronic? @ -Acute Uncomplicated (without systemic symptoms) or Complicated (systemic symptoms)? @ -Uncomplicated Side effects of treatment? @ -None Exacerbation, Progression, or Severe Exacerbation] @ -Not applicable Poses a threat to life or bodily function? @ -No Return precautions reviewed in depth, the patient is instructed to return to the emergency department with any new, worsening, or concerning symptoms. Patient verbalized understanding. This case was discussed in detail with the attending ED physician, Dr. Pulido. Presentation, findings, and treatment plan discussed in detail as well. Disposition Clinical Impression: Status post surgical removal of pilonidal cyst, Wound, open Disposition: HOME SELF-CARE Instructions (If sedation given, give patient instructions): Steristrips (ED) Additional Instructions: Return to the emergency department with any new, worsening, or concerning symptoms. Take the antibiotic as prescribed for 10 days. You can keep the wound covered with steri strips. [facility] Prescriptions: Sulfamethox-Tmp 800-160Mg [Bactrim DS 800-160 mg] 1 tab PO Q12HR 10 Days #20 tab Is patient prescribed a controlled substance at d/c from ED?: No Referrals: Darren Thornton MD [Primary Care Provider] - 1-2 days
[2023-06-18 20:50] VITALS: BP 138/96; PULSE 80
== END 2023-06-18 20:50 | disposition home or self-care (01) ==
LOC: EC 19:09
DX: S31.819A Unspecified open wound of right buttock, initial encounter (principal); E07.9 Disorder of thyroid, unspecified; F32.A Depression, unspecified; F43.10 Post-traumatic stress disorder, unspecified; F41.9 Anxiety disorder, unspecified; F17.290 Nicotine dependence, other tobacco product, uncomplicated; F12.90 Cannabis use, unspecified, uncomplicated; Z79.82 Long term (current) use of aspirin; Z79.890 Hormone replacement therapy; Z79.899 Other long term (current) drug therapy; Z88.8 Allergy status to other drugs, medicaments and biological substances; Z98.890 Other specified postprocedural states; X58.XXXA Exposure to other specified factors, initial encounter
CPT/HCPCS: 99282

== ENCOUNTER 2024-03-03 22:10 | Inpatient (IN) | payer MEDICARE, OTHER ==
--- NOTE | 2024-03-03 23:39 | ED ---
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 Patient states he awoke this morning and has had numerous episodes of nausea, vomiting and diarrhea. He has been unable to hold in any of his medications which assist with his adrenal insufficiency. Denies any sick contacts. No concern for food poisoning. He has no abdominal pain. No fevers. He denies cough or shortness of breath. Denies black or bloody stools. No history of C. difficile. He denies hematemesis. No other alleviating, precipitating or modifying factors - Related Data Home Medications Medication Instructions Recorded Confirmed Hydrocortisone [Cortef] 10 mg PO BID 04/12/18 03/04/24 Loperamide HCl [Imodium A-D] 2 mg PO HS 04/12/18 03/04/24 Aspirin EC [Ecotrin Low Dose] 81 mg PO HS 07/23/19 03/04/24 Pyridoxine [Vitamin B-6] 50 mg PO DAILY 07/23/19 03/04/24 busPIRone HCL 15 mg PO TID 07/23/19 03/04/24 Abemaciclib [Verzenio] 200 mg PO BID 03/04/24 03/04/24 Desmopressin Acetate [Ddavp] 0.1 mg PO HS 03/04/24 03/04/24 Desmopressin Acetate [Ddavp] 0.2 mg PO DAILY 03/04/24 03/04/24 Droxidopa [Northera] 300 mg PO TID 03/04/24 03/05/24 Levothyroxine Sodium [Synthroid] 224 mcg PO DAILY 03/04/24 03/04/24 Midodrine [ProAmatine] 5 mg PO TID 03/04/24 03/04/24 Omeprazole [PriLOSEC] 20 mg PO HS 03/04/24 03/04/24 Potassium Chloride ER [K-Dur 10] 10 meq PO BID 03/04/24 03/04/24 Topiramate [Topamax] 75 mg PO BID 03/04/24 03/04/24 Venlafaxine HCl ER [Effexor Xr] 150 mg PO DAILY 03/04/24 03/04/24 lamoTRIgine [LaMICtal] 100 mg PO BID 03/04/24 03/04/24 methocarbamoL [Robaxin] 1,000 mg PO TID 03/04/24 03/04/24 Buprenorphine [Buprenorphine 20 20 mcg TRANSDERM WEEKLY 03/09/24 03/09/24 MCG/HR] Allergies Allergy/AdvReac Type Severity Reaction Status Date / Time pregabalin Allergy Confusion Verified 03/07/24 14:44 Review of Systems ROS Statement: Those systems with pertinent positive or pertinent negative responses have been documented in the HPI. ROS Other: All systems not noted in ROS Statement are negative. Past Medical History Past Medical History: Cancer, Thyroid Disorder History of Any Multi-Drug Resistant Organisms: None Reported Additional Past Surgical History / Comment(s): sinus surgery, skin flap Past Psychological History: Anxiety, Depression, PTSD Smoking Status: Vaper Past Alcohol Use History: None Reported Past Drug Use History: Marijuana - Past Family History Father Family Medical History: No Reported History Mother Family Medical History: No Reported History General Exam Limitations: no limitations General appearance: alert, in no apparent distress Head exam: Present: atraumatic, normocephalic, normal inspection Eye exam: Present: normal appearance, PERRL, EOMI. Absent: scleral icterus, conjunctival injection, periorbital swelling ENT exam: Present: normal exam, mucous membranes moist Respiratory exam: Present: normal lung sounds bilaterally. Absent: respiratory distress, wheezes, rales, rhonchi, stridor Cardiovascular Exam: Present: normal rhythm, tachycardia GI/Abdominal exam: Present: soft, normal bowel sounds. Absent: distended, tenderness, guarding, rebound, rigid Rectal exam: Present: heme (+) stool, other (Brown stool. Patient does have a sacral wound, stage II). Absent: black stool, bloody stool exam: Present: normal inspection Extremities exam: Present: normal inspection, full ROM, normal capillary refill. Absent: tenderness, pedal edema, joint swelling, calf tenderness Neurological exam: Present: alert, oriented X3, CN II-XII intact Psychiatric exam: Present: normal affect, normal mood Skin exam: Present: other (Patient has a petechial rash to chest and upper ext remities) Course Vital Signs 03/03/24 03/04/24 03/04/24 22:12 03:35 04:20 Temperature 98.3 F 98.4 F 98.4 F Pulse Rate 145 H 114 H 112 H Respiratory 18 20 19 Rate Blood Pressure 101/68 99/62 84/51 O2 Sat by Pulse 95 95 95 Oximetry 03/04/24 03/04/24 03/04/24 04:31 04:51 05:27 Temperature 98.4 F 98.3 F 98.3 F Pulse Rate 106 H 105 H 103 H Respiratory 16 16 16 Rate Blood Pressure 91/56 98/61 105/62 O2 Sat by Pulse 94 L 95 Oximetry 03/04/24 03/04/24 03/04/24 05:54 07:50 13:49 Temperature 98.3 F 98.3 F Pulse Rate 99 100 99 Respiratory 16 18 20 Rate Blood Pressure 102/66 106/65 116/63 O2 Sat by Pulse 95 97 Oximetry 03/04/24 03/04/24 16:00 18:00 Temperature Pulse Rate 62 67 Respiratory 18 20 Rate Blood Pressure 116/70 117/60 O2 Sat by Pulse 98 98 Oximetry Medical Decision Making - Medical Decision Making Was pt. sent in by a medical professional or institution (, PA, QUILL CLEANER, urgent care, hospital, or custodial...) When possible be specific @ -No Did you speak to anyone other than the patient for history (EMS, parent, family, police, friend...)? What history was obtained from this source @ -Spoke with the patient's mother and EMS for history Did you review nursing and triage notes (agree or disagree)? Why? @ -I reviewed and agree with nursing and triage notes Were old charts reviewed (outside hosp., previous admission, EMS record, old EKG, old radiological studies, urgent care reports/EKG's, custodial records)? Report findings @ -No old charts were reviewed Differential Diagnosis (chest pain, altered mental status, abdominal pain women, abdominal pain men, vaginal bleeding, weakness, fever, dyspnea, syncope, headache, dizziness, GI bleed, back pain, seizure, CVA, palpatations, mental health, musculoskeletal)? @ -Differential Weakness: Hypoglycemia, shock, sepsis, hyponatremia, anemia, infection, [place], ETOH, adverse medicine reaction, overdose, stroke, this is not meant to be an all-inclusive list. EKG interpreted by me (3pts min.). @ -Yes and demonstrates sinus tachycardia with a rate of 133. NV interval 154. QRS 85. QTc of 364. No acute ST segment elevations or depressions X-rays interpreted by me (1pt min.). @ -Yes and demonstrates no acute process CT interpreted by me (1pt min.). @ -None done U/S interpreted by me (1pt. min.). @ -None done What testing was considered but not performed or refused? (CT, X-rays, U/S, labs)? Why? @ -CT abdomen however patient has no abdominal pain What meds were considered but not given or refused? Why? @ -None Did you discuss the management of the patient with other professionals (professionals i.e. , PA, QUILL CLEANER, lab, RT, psych nurse, social media content specialist, mental health coordinator, teacher, deck officer, case planner)? Give summary @ -Spoke with Leigh from [facility] who will admit the patient Was smoking cessation discussed for >3mins.? @ -No Was critical care preformed (if so, how long)? @ -Yes, 35 minutes for blood transfusion Were there social determinants of health that impacted care today? How? (Homelessness, low income, unemployed, alcoholism, drug addiction, transportation, low edu. Level, literacy, decrease access to med. care, snf, rehab)? @ -No Was there de-escalation of care discussed even if they declined (Discuss DNR or withdrawal of care, Hospice)? DNR status @ -No What co-morbidities impacted this encounter? (DM, HTN, Smoking, COPD, CAD, Cancer, CVA, ARF, Chemo, Hep., AIDS, mental health diagnosis, sleep apnea, morbid obesity)? @ -Chordoma Was patient admitted / discharged? Hospital course, mention meds given and route, prescriptions, significant lab abnormalities, going to OR and other pertinent info. @ -Upon arrival patient seen and evaluated in room 22. Thorough history and physical exam was performed. Patient placed on continuous pulse ox and cardiac monitoring. Patient significantly tachycardic and therefore IV fluids are administered. Laboratory studies are conducted. Patient does have multiple bowel movements in the emergency department which are brown and loose. No signs of any blood. Laboratory studies reveal a markedly low hemoglobin. Patient is agreeable to blood transfusion. Patient will be admitted for surgical consult for his sacral wound. Patient agreeable to this plan. Spoke with [facility] who agreed to admit the patient Undiagnosed new problem with uncertain prognosis? @ -No Drug Therapy requiring intensive monitoring for toxicity (Heparin, Nitro, Insulin, Cardizem)? @ -No Were any procedures done? @ -No Diagnosis/symptom? @ -Acute diarrhea, acute tachycardia, acute anemia, occult positive Acute, or Chronic, or Acute on Chronic? @ -Acute Uncomplicated (without systemic symptoms) or Complicated (systemic symptoms)? @ -Complicated Side effects of treatment? @ -No Exacerbation, Progression, or Severe Exacerbation? @ -No Poses a threat to life or bodily function? How? (Chest pain, [place], [place], pneumonia, PE, COPD, DKA, ARF, appy, cholecystitis, CVA, Diverticulitis, Homicidal, Suicidal, threat to staff... and all critical care pts) @ -No - Lab Data Result diagrams: 03/10/24 04:47 03/10/24 04:47 Lab Results 03/03/24 03/03/24 03/03/24 Range/Units 23:55 23:55 23:55 WBC 2.8 L (3.8-10.6) k/uL RBC 1.85 L (4.30-5.90) m/uL Hgb 6.2 L* (13.0-17.5) gm/dL Hct 19.5 L* (39.0-53.0) % MCV 105.7 H (80.0-100.0) fL MCH 33.3 (25.0-35.0) pg MCHC 31.5 (31.0-37.0) g/dL RDW 15.9 H (11.5-15.5) % Plt Count 134 L (150-450) k/uL MPV 8.0 Neutrophils % (Manual) 86 % Band Neuts % (Manual) 1 % Lymphocytes % (Manual) 13 % Neutrophils # (Manual) 2.40 (1.3-7.7) k/uL Lymphocytes # (Manual) 0.36 L (1.0-4.8) k/uL Nucleated RBCs 0 (0-0) /100 WBC Manual Slide Review Performed Hypochromasia Slight Poikilocytosis Slight Macrocytosis Moderate Tear Drop Cells Present Ovalocytes Present Crenated Cell Present Rouleaux Present Sodium 135 L (137-145) mmol/L Potassium 3.9 (3.5-5.1) mmol/L Chloride 107 (98-107) mmol/L Carbon Dioxide 20 L (22-30) mmol/L Anion Gap 8 mmol/L BUN 17 (9-20) mg/dL Creatinine 1.45 H (0.66-1.25) mg/dL Est GFR (CKD-EPI)AfAm 69 (>60 ml/min/1.73 sqM) Est GFR (CKD-EPI)NonAf 59 (>60 ml/min/1.73 sqM) Glucose 102 H (74-99) mg/dL Lactic Ac Sepsis Rflx Plasma Lactic Acid Candido 2.1 H* (0.7-2.0) mmol/L Calcium 8.6 (8.4-10.2) mg/dL Total Bilirubin 0.7 (0.2-1.3) mg/dL AST 33 (17-59) U/L ALT 31 (4-49) U/L Alkaline Phosphatase 104 (38-126) U/L Total Protein 6.3 (6.3-8.2) g/dL Albumin 3.2 L (3.5-5.0) g/dL Lipase 64 (23-300) U/L Stool Occult Blood (Negative) Lamotrigine (2.0-15.0) ug/mL Blood Type Blood Type Confirm Blood Type Recheck Bld Type Recheck Status Antibody Screen Crossmatch Spec Expiration Date 03/03/24 03/04/24 03/04/24 Range/Units 23:55 00:39 02:15 WBC (3.8-10.6) k/uL RBC (4.30-5.90) m/uL Hgb (13.0-17.5) gm/dL Hct (39.0-53.0) % MCV (80.0-100.0) fL MCH (25.0-35.0) pg MCHC (31.0-37.0) g/dL RDW (11.5-15.5) % Plt Count (150-450) k/uL MPV Neutrophils % (Manual) % Band Neuts % (Manual) % Lymphocytes % (Manual) % Neutrophils # (Manual) (1.3-7.7) k/uL Lymphocytes # (Manual) (1.0-4.8) k/uL Nucleated RBCs (0-0) /100 WBC Manual Slide Review Hypochromasia Poikilocytosis Macrocytosis Tear Drop Cells Ovalocytes Crenated Cell Rouleaux Sodium (137-145) mmol/L Potassium (3.5-5.1) mmol/L Chloride (98-107) mmol/L Carbon Dioxide (22-30) mmol/L Anion Gap mmol/L BUN (9-20) mg/dL Creatinine (0.66-1.25) mg/dL Est GFR (CKD-EPI)AfAm (>60 ml/min/1.73 sqM) Est GFR (CKD-EPI)NonAf (>60 ml/min/1.73 sqM) Glucose (74-99) mg/dL Lactic Ac Sepsis Rflx Y Plasma Lactic Acid Candido (0.7-2.0) mmol/L Calcium (8.4-10.2) mg/dL Total Bilirubin (0.2-1.3) mg/dL AST (17-59) U/L ALT (4-49) U/L Alkaline Phosphatase (38-126) U/L Total Protein (6.3-8.2) g/dL Albumin (3.5-5.0) g/dL Lipase (23-300) U/L Stool Occult Blood Positive (Negative) Lamotrigine 1.1 L (2.0-15.0) ug/mL Blood Type Blood Type Confirm Blood Type Recheck Bld Type Recheck Status Antibody Screen Crossmatch Spec Expiration Date 03/04/24 03/04/24 03/04/24 Range/Units 02:15 02:30 02:43 WBC (3.8-10.6) k/uL RBC (4.30-5.90) m/uL Hgb (13.0-17.5) gm/dL Hct (39.0-53.0) % MCV (80.0-100.0) fL MCH (25.0-35.0) pg MCHC (31.0-37.0) g/dL RDW (11.5-15.5) % Plt Count (150-450) k/uL MPV Neutrophils % (Manual) % Band Neuts % (Manual) % Lymphocytes % (Manual) % Neutrophils # (Manual) (1.3-7.7) k/uL Lymphocytes # (Manual) (1.0-4.8) k/uL Nucleated RBCs (0-0) /100 WBC Manual Slide Review Hypochromasia Poikilocytosis Macrocytosis Tear Drop Cells Ovalocytes Crenated Cell Rouleaux Sodium (137-145) mmol/L Potassium (3.5-5.1) mmol/L Chloride (98-107) mmol/L Carbon Dioxide (22-30) mmol/L Anion Gap mmol/L BUN (9-20) mg/dL Creatinine (0.66-1.25) mg/dL Est GFR (CKD-EPI)AfAm (>60 ml/min/1.73 sqM) Est GFR (CKD-EPI)NonAf (>60 ml/min/1.73 sqM) Glucose (74-99) mg/dL Lactic Ac Sepsis Rflx Plasma Lactic Acid Candido 1.5 (0.7-2.0) mmol/L Calcium (8.4-10.2) mg/dL Total Bilirubin (0.2-1.3) mg/dL AST (17-59) U/L ALT (4-49) U/L Alkaline Phosphatase (38-126) U/L Total Protein (6.3-8.2) g/dL Albumin (3.5-5.0) g/dL Lipase (23-300) U/L Stool Occult Blood (Negative) Lamotrigine (2.0-15.0) ug/mL Blood Type O Positive Blood Type Confirm O Positive Blood Type Recheck No Previous Record Bld Type Recheck Status CABO Indicated Antibody Screen NEGATIVE Crossmatch See Detail Spec Expiration Date 03/07/20242329 Disposition Clinical Impression: Pancytopenia, Nausea & vomiting, Tachycardia Disposition: ADMITTED IP TO THIS [facility] Condition: Serious Is patient prescribed a controlled substance at d/c from ED?: No Time of Disposition: 01:56 Decision to Admit Reason: Admit from EC Decision Date: 03/04/24 Decision Time: 01:56
[2024-03-03] MEDS: SODIUM CHLORIDE 0.9% 2,000 ML IV STA (23:49)
[2024-03-04] MEDS: HYDROCORTISONE SUCCINATE 100 MG/2 ML VIAL IV STA (00:07)
[2024-03-04 00:16] LABS: Hypochromasia Slight; MCH 33.3 pg (25.0-35.0); MCHC 31.5 g/dL (31.0-37.0); MCV 105.7 fL (80.0-100.0); Macrocytosis Moderate; Platelet Count 134 k/uL (150-450); Poikilocytosis Slight; RBC 1.85 m/uL (4.30-5.90); RDW 15.9 % (11.5-15.5); WBC 2.8 k/uL (3.8-10.6)
[2024-03-04 00:33] LABS: ALT 31 U/L (4-49); AST 33 U/L (17-59); African American GFR (CKD) 69 (>60 ml/min/1.73 sqM); Albumin 3.2 g/dL (3.5-5.0); Alkaline Phosphatase 104 U/L (38-126); Anion Gap 8 mmol/L; Blood Urea Nitrogen 17 mg/dL (9-20); Calcium 8.6 mg/dL (8.4-10.2); Carbon Dioxide 20 mmol/L (22-30); Chloride 107 mmol/L (98-107); Glucose 102 mg/dL (74-99); Lipase 64 U/L (23-300); Non-African American GFR(CKD) 59 (>60 ml/min/1.73 sqM); Potassium 3.9 mmol/L (3.5-5.1); Sodium 135 mmol/L (137-145); Total Bilirubin 0.7 mg/dL (0.2-1.3); Total Protein 6.3 g/dL (6.3-8.2)
[2024-03-04 00:56] LABS: HCT 19.5 % (39.0-53.0); HGB 6.2 gm/dL (13.0-17.5)
[2024-03-04 02:01] LABS: Band Neutrophils % 1 %; Lymphocytes # (M) 0.36 k/uL (1.0-4.8); Neutrophils % (M) 86 %; Nucleated Red Blood Cells 0 /100 WBC (0-0); Total Cells Counted 100
[2024-03-04 02:02] LABS: Crenated RBC Present
[2024-03-04 02:03] LABS: Ovalocytes Present
[2024-03-04 02:11] LABS: Rouleaux Present; Tear Drop Cells Present
[2024-03-04] MEDS ORDERED: NALOXONE 0.4 MG/ML 1 ML VIAL IV PRN (02:43)
[2024-03-04] MEDS: SODIUM CHLORIDE 0.9% 1,000 ML IV STA (02:43)
[2024-03-04] MEDS ORDERED: ONDANSETRON 4 MG/2 ML VIAL IVP PRN (02:43)
[2024-03-04] MEDS: SODIUM CHLORIDE 0.9% 1,000 ML IV SCH (02:47)
[2024-03-04 03:52] LABS: Appearance,Urine Cloudy (Clear); Bilirubin,Urine Negative (Negative); Blood,Urine Large (Negative); Color,Urine Yellow; Glucose,Urine (UA) Negative (Negative); Hyaline Casts,Urine 13 /lpf (0-2); Ketones,Urine Negative (Negative); Leukocyte Esterase,Urine Negative (Negative); Mucus,Urine Moderate /hpf; Nitrite,Urine Negative (Negative); Protein,Urine Trace (Negative); RBC,Urine 146 /hpf (0-5); Specific Gravity,Urine 1.021 (1.001-1.035); Urobilinogen,Urine <2.0 mg/dL (<2.0); WBC,Urine 4 /hpf (0-5)
--- NOTE | 2024-03-04 04:47 | XR ---
EXAMINATION TYPE: XR chest 2V DATE OF EXAM: 03/04/2024 COMPARISON: NONE HISTORY: Cough/chest pain TECHNIQUE: Frontal and lateral views of the chest are obtained. FINDINGS: There is right apical pleural/parenchymal scarring. There is no suspicious new focal air sp lynda opacity, pleural effusion, or pneumothorax seen. The cardiac silhouette size is within normal li mits. The osseous structures are intact. IMPRESSION: Right apical pleural/parenchymal scarring. No acute pulmonary infiltrate.
--- NOTE | 2024-03-04 04:49 | XR ---
EXAMINATION TYPE: XR KUB DATE OF EXAM: 03/04/2024 2:14 AM CLINICAL HISTORY: Abdominal pain with vomiting. TECHNIQUE: 3 supine KUB images of the abdomen are obtained. COMPARISON: Prior CT abdomen and pelvis July 23, 2019. FINDINGS: Gas is seen in nondistended stomach. And scattered gas seen in nondistended small and large bowel loops. Moderate degenerative change of both hip joints is present. No suspicious calcification s. IMPRESSION: Overall nonobstructive bowel gas pattern.
--- NOTE | 2024-03-04 12:19 | P.HPIM ---
History of Present Illness 43-year-old male with history of chordoma of the brain, slow-growing tumor and is on oral chemotherapy on daily basis came in with complaints of nausea vomiting diarrhea without any blood in the stools, hematemesis or dark stools. Patient had a significantly low hemoglobin of around 6.2 on admission patient previous hemoglobin was 12 few months ago patient has macrocytic anemia. Patient patient also has pancytopenia. B12 and multiple other tests were ordered by hematology who evaluated the patient. Patient also has a renal in sufficiency for which patient takes 10 mg hydrocortisone twice a day dose of which is being increased and now as patient is hospitalized. Patient had any fever chills patient denies any recent antibiotic use. Patient denies any flulike symptoms. REVIEW OF SYSTEMS: CONSTITUTIONAL: No fever, no malaise, no fatigue. HEENT: No recent visual problems or hearing problems. Denied any sore throat. CARDIOVASCULAR: No chest pain, orthopnea, PND, no palpitations, no syncope. PULMONARY: No shortness of breath, no cough, no hemoptysis. GASTROINTESTINAL: As mentioned in HPI NEUROLOGICAL: No headaches, no weakness, no numbness. HEMATOLOGICAL: Denies any bleeding or petechiae. GENITOURINARY: Denies any burning micturition, frequency, or urgency. MUSCULOSKELETAL/RHEUMATOLOGICAL: Denies any joint pain, swelling, or any muscle pain. ENDOCRINE: Denies any polyuria or polydipsia. The rest of the 14-point review of systems is negative. PHYSICAL EXAMINATION: GENERAL: The patient is alert and oriented x3, not in any acute distress. Well developed, well nourished. HEENT: Pupils are round and equally reacting to light. EOMI. No scleral icterus. Does have conjunctival pallor. Normocephalic, atraumatic. No pharyngeal erythema. No thyromegaly. CARDIOVASCULAR: S1 and S2 present. No murmurs, rubs, or gallops. PULMONARY: Chest is clear to auscultation, no wheezing or crackles. ABDOMEN: Soft, nontender, nondistended, normoactive bowel sounds. No palpable organomegaly. MUSCULOSKELETAL: No joint swelling or deformity. EXTREMITIES: No cyanosis, clubbing, or pedal edema. NEUROLOGICAL: Gross neurological examination did not reveal any focal deficits. SKIN: No rashes. Assessment and plan -Nausea vomiting diarrhea: Probably gastroenteritis or gastritis patient will be started on IV fluids -Acute renal failure baseline creatinine is normal at baseline few months ago. Patient will be started and continued on IV fluids -Severe anemia unknown whether patient has acute blood loss clinically patient denies any acute blood loss symptoms, patient has elevated MCV B12 levels were o btained oncology evaluated the patient patient does have pancytopenia -Pancytopenia B12 is being obtained and, oncology is evaluating the patient -Anxiety and depression -Adrenal insufficiency increasing the dose of hydrocortisone to cope up with the hospitalization stress -Patient is also on desmopressin which will be continued -Patient did not give any clear history of seizures but patient is on multiple antiseizure medications which are being resumed at this time -Chordoma: Everything recommendations from oncology regarding starting his oral chemo medications DVT prophylaxis: Ambulation, because of severely low hemoglobin and mild thrombocytopenia holding of any pharmacological DVT prophylaxis and patient is fairly ambulatory at this time. Past Medical History Past Medical History: Cancer, Thyroid Disorder Additional Past Medical History / Comment(s): pilonidal cyst, adrenal insufficiency (sequela of radiation to brain) History of Any Multi-Drug Resistant Organisms: None Reported Additional Past Surgical History / Comment(s): Brain tumor resection 1016, sinus surgery, skin flap Past Psychological History: Anxiety, Depression, PTSD Smoking Status: Vaper Past Alcohol Use History: None Reported Past Drug Use History: Marijuana - Past Family History Father Family Medical History: No Reported History Mother Family Medical History: No Reported History Medications and Allergies Home Medications Medication Instructions Recorded Confirmed Type Hydrocortisone [Cortef] 10 mg PO BID 04/12/18 03/04/24 History Loperamide HCl [Imodium A-D] 2 mg PO HS 04/12/18 03/04/24 History Aspirin EC [Ecotrin Low Dose] 81 mg PO HS 07/23/19 03/04/24 History Pyridoxine [Vitamin B-6] 50 mg PO DAILY 07/23/19 03/04/24 History busPIRone HCL 15 mg PO TID 07/23/19 03/04/24 History Abemaciclib [Verzenio] 200 mg PO BID 03/04/24 03/04/24 History Desmopressin Acetate [Ddavp] 0.1 mg PO HS 03/04/24 03/04/24 History Desmopressin Acetate [Ddavp] 0.2 mg PO DAILY 03/04/24 03/04/24 History Droxidopa [Northera] 100 mg PO TID 03/04/24 03/04/24 History Levothyroxine Sodium [Synthroid] 224 mcg PO DAILY 03/04/24 03/04/24 History Midodrine [ProAmatine] 5 mg PO TID 03/04/24 03/04/24 History Omeprazole [PriLOSEC] 20 mg PO HS 03/04/24 03/04/24 History Potassium Chloride ER [K-Dur 10] 10 meq PO BID 03/04/24 03/04/24 History Topiramate [Topamax] 75 mg PO BID 03/04/24 03/04/24 History Venlafaxine HCl ER [Effexor Xr] 150 mg PO DAILY 03/04/24 03/04/24 History lamoTRIgine [LaMICtal] 100 mg PO BID 03/04/24 03/04/24 History methocarbamoL [Robaxin] 1,000 mg PO TID 03/04/24 03/04/24 History Allergies Allergy/AdvReac Type Severity Reaction Status Date / Time pregabalin Allergy Confusion Verified 03/04/24 09:53 Physical Exam Vitals: Vital Signs Temp Pulse Resp BP Pulse Ox 03/04/24 07:50 100 18 106/65 95 03/04/24 05:54 98.3 F 99 16 102/66 03/04/24 05:27 98.3 F 103 H 16 105/62 95 03/04/24 04:51 98.3 F 105 H 16 98/61 94 L 03/04/24 04:31 98.4 F 106 H 16 91/56 03/04/24 04:20 98.4 F 112 H 19 84/51 95 03/04/24 03:35 98.4 F 114 H 20 99/62 95 03/03/24 22:12 98.3 F 145 H 18 101/68 95 Intake and Output 03/03/24 03/04/24 03/04/24 22:59 06:59 14:59 Intake Total 280 Balance 280 Intake: Blood Product 280 Rc Pheresis As-3 Unit 280 [id number] Other: Weight 117.934 kg Results CBC & Chem 7: 03/03/24 23:55 03/03/24 23:55 Labs: Abnormal Lab Results - Last 24 Hours (Table) 03/03/24 03/03/24 03/03/24 Range/Units 23:55 23:55 23:55 WBC 2.8 L (3.8-10.6) k/uL RBC 1.85 L (4.30-5.90) m/uL Hgb 6.2 L* (13.0-17.5) gm/dL Hct 19.5 L* (39.0-53.0) % MCV 105.7 H (80.0-100.0) fL RDW 15.9 H (11.5-15.5) % Plt Count 134 L (150-450) k/uL Lymphocytes # (Manual) 0.36 L (1.0-4.8) k/uL Sodium 135 L (137-145) mmol/L Carbon Dioxide 20 L (22-30) mmol/L Creatinine 1.45 H (0.66-1.25) mg/dL Glucose 102 H (74-99) mg/dL Plasma Lactic Acid Candido 2.1 H* (0.7-2.0) mmol/L Albumin 3.2 L (3.5-5.0) g/dL Urine Protein (Negative) Urine Blood (Negative) Urine RBC (0-5) /hpf Hyaline Casts (0-2) /lpf Urine Mucus (None) /hpf Crossmatch 03/04/24 03/04/24 Range/Units 02:30 03:35 WBC (3.8-10.6) k/uL RBC (4.30-5.90) m/uL Hgb (13.0-17.5) gm/dL Hct (39.0-53.0) % MCV (80.0-100.0) fL RDW (11.5-15.5) % Plt Count (150-450) k/uL Lymphocytes # (Manual) (1.0-4.8) k/uL Sodium (137-145) mmol/L Carbon Dioxide (22-30) mmol/L Creatinine (0.66-1.25) mg/dL Glucose (74-99) mg/dL Plasma Lactic Acid Candido (0.7-2.0) mmol/L Albumin (3.5-5.0) g/dL Urine Protein Trace H (Negative) Urine Blood Large H (Negative) Urine RBC 146 H (0-5) /hpf Hyaline Casts 13 H (0-2) /lpf Urine Mucus Moderate H (None) /hpf Crossmatch See Detail
[2024-03-04] MEDS: DROXIDOPA 100 MG PO SCH (12:31)
[2024-03-04 13:03] LABS: INR 1.2 (<1.2); Partial Thromboplastin Time 25.6 sec (22.0-30.0); Prothrombin Time 12.9 sec (10.0-12.5)
[2024-03-04] MEDS: TOPIRAMATE 25 MG TAB PO SCH (13:34)
[2024-03-04] MEDS: busPIRone HCl 5 MG TAB PO SCH (13:34)
[2024-03-04] MEDS: LEVOTHYROXINE 112 MCG TAB PO SCH (13:34)
[2024-03-04] MEDS: VENLAFAXINE HCL ER 150 MG CAP PO SCH (13:34)
[2024-03-04] MEDS: MIDODRINE 5 MG TAB PO SCH (13:34)
[2024-03-04 13:35] LABS: LDH 147 U/L (120-246)
[2024-03-04] MEDS: DESMOPRESSIN 0.2 MG TAB PO SCH ×2 (13:35→21:34)
[2024-03-04] MEDS: PYRIDOXINE 50 MG TAB PO SCH (13:35)
[2024-03-04] MEDS: lamoTRIgine 100 MG TAB PO SCH (13:35)
[2024-03-04] MEDS: PANTOPRAZOLE 40 MG/10 ML VIAL IVP SCH (13:35)
--- NOTE | 2024-03-04 14:26 | P.CONS ---
History of Present Illness - Reason for Consult Consult date: 03/04/24 pancytopenia Requesting physician: Lynn Welch - Chief Complaint N,V,D - History of Present Illness Mr. Ruvalcaba is a 43-year-old male who we have been consulted to see regarding new onset pancytopenia, no Hx of the same, this was confirmed with parents over the phone-pt [facility]. 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 Patient reports that he was diagnosed with a brain tumor in 2014, he had it "cut out" and then "blasted". The tumor was found while he was in [facility], he had surgery in [place], radiation in [place]. Currently he [facility] [place], this information is shared with [facility] where he sees a Med Onc. He is currently on a study and being treated with a "breast cancer drug" to keep his brain tumor under control. He was seen by Dr. Romero at [facility]. His parents report to us that he is on Verzenio oral for treatment. He was last seen on February 20, and his labs were all normal at that time, his cancer is well controlled. 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 Patient recently had a pilonidal cyst removed, this has been draining, concerns as a possible source for infection. Over the last several days patient has had nausea and vomiting, sudden onset, persisted to the point that could not keep his medications down, further exacerbating his symptoms. He is also having diarrhea-he will have this from time to time but it seems worse. He complains of no energy, shortness of breath with mild activity. He denies any fevers, chills, oral irritation, difficulty swallowing, chest pain, palpitations, abdominal pain or cramping. Urine is a darker color. No new or unusual swelling in the leg. He is reporting right hip pain, this is not new for him but, currently it is exacerbated. He is reporting a "rash" on his extremities, this is new within the last few days. He denies any overt bleeding or unusual bruising at this time. We did speak to his parents over the phone. Review of Systems 10 point ROS is neg except as stated in HPI Past Medical History Past Medical History: Cancer, Thyroid Disorder Additional Past Medical History / Comment(s): pilonidal cyst, adrenal insufficiency (sequela of radiation to brain) History of Any Multi-Drug Resistant Organisms: None Reported Additional Past Surgical History / Comment(s): Brain tumor resection 1016, sinus surgery, skin flap Past Psychological History: Anxiety, Depression, PTSD Smoking Status: Vaper Past Alcohol Use History: None Reported Past Drug Use History: Marijuana - Past Family History Father Family Medical History: No Reported History Mother Family Medical History: No Reported History Medications and Allergies Home Medications Medication Instructions Recorded Confirmed Type Hydrocortisone [Cortef] 10 mg PO BID 04/12/18 03/04/24 History Loperamide HCl [Imodium A-D] 2 mg PO HS 04/12/18 03/04/24 History Aspirin EC [Ecotrin Low Dose] 81 mg PO HS 07/23/19 03/04/24 History Pyridoxine [Vitamin B-6] 50 mg PO DAILY 07/23/19 03/04/24 History busPIRone HCL 15 mg PO TID 07/23/19 03/04/24 History Abemaciclib [Verzenio] 200 mg PO BID 03/04/24 03/04/24 History Desmopressin Acetate [Ddavp] 0.1 mg PO HS 03/04/24 03/04/24 History Desmopressin Acetate [Ddavp] 0.2 mg PO DAILY 03/04/24 03/04/24 History Droxidopa [Northera] 100 mg PO TID 03/04/24 03/04/24 History Levothyroxine Sodium [Synthroid] 224 mcg PO DAILY 03/04/24 03/04/24 History Midodrine [ProAmatine] 5 mg PO TID 03/04/24 03/04/24 History Omeprazole [PriLOSEC] 20 mg PO HS 03/04/24 03/04/24 History Potassium Chloride ER [K-Dur 10] 10 meq PO BID 03/04/24 03/04/24 History Topiramate [Topamax] 75 mg PO BID 03/04/24 03/04/24 History Venlafaxine HCl ER [Effexor Xr] 150 mg PO DAILY 03/04/24 03/04/24 History lamoTRIgine [LaMICtal] 100 mg PO BID 03/04/24 03/04/24 History methocarbamoL [Robaxin] 1,000 mg PO TID 03/04/24 03/04/24 History Allergies Allergy/AdvReac Type Severity Reaction Status Date / Time pregabalin Allergy Confusion Verified 03/04/24 09:53 Physical Exam Vitals: Vital Signs Temp Pulse Resp BP Pulse Ox 03/04/24 07:50 100 18 106/65 95 03/04/24 05:54 98.3 F 99 16 102/66 03/04/24 05:27 98.3 F 103 H 16 105/62 95 03/04/24 04:51 98.3 F 105 H 16 98/61 94 L 03/04/24 04:31 98.4 F 106 H 16 91/56 03/04/24 04:20 98.4 F 112 H 19 84/51 95 03/04/24 03:35 98.4 F 114 H 20 99/62 95 03/03/24 22:12 98.3 F 145 H 18 101/68 95 Intake and Output 03/03/24 03/04/24 03/04/24 22:59 06:59 14:59 Intake Total 280 Balance 280 Intake: Blood Product 280 Rc Pheresis As-3 Unit 280 [id number] Other: Weight 117.934 kg - Constitutional General appearance: cooperative, no acute distress, obese - EENT Eyes: anicteric sclerae, EOMI ENT: hearing grossly normal, normal oropharynx - Neck Neck: no lymphadenopathy - Respiratory Respiratory: bilateral: CTA - Cardiovascular Rhythm: regular Heart sounds: normal: S1, S2 Abnormal Heart Sounds: no systolic murmur, no diastolic murmur, no rub, no S3 Gallop, no S4 Gallop, no click, no other foot Peripheral Edema: bilateral: Trace - Gastrointestinal General gastrointestinal: no absent bowel sounds, no decreased bowel sounds, no distended, no hepatomegaly, no hyperactive bowel sounds, normal bowel sounds, no organomegaly, no rigid, no scaphoid, soft, no splenomegaly, no tenderness, no umbilical hernia, no ventral hernia - Integumentary lateral to the left of the gluteal fold incision from removal of pilonidal cyst, covered in liquid stool Purpura on the extremities Scattered pustules and scabs on trunk and face, also on rt glute - Neurologic Neurologic: CNII-XII intact (grossly) - Musculoskeletal Musculoskeletal: strength equal bilaterally - Psychiatric Psychiatric: no A&O x's 3, no appropriate affect, no intact judgment & insight Results CBC & Chem 7: 03/03/24 23:55 03/03/24 23:55 Labs: Abnormal Lab Results - Last 24 Hours (Table) 03/03/24 03/03/24 03/03/24 Range/Units 23:55 23:55 23:55 WBC 2.8 L (3.8-10.6) k/uL RBC 1.85 L (4.30-5.90) m/uL Hgb 6.2 L* (13.0-17.5) gm/dL Hct 19.5 L* (39.0-53.0) % MCV 105.7 H (80.0-100.0) fL RDW 15.9 H (11.5-15.5) % Plt Count 134 L (150-450) k/uL Lymphocytes # (Manual) 0.36 L (1.0-4.8) k/uL Sodium 135 L (137-145) mmol/L Carbon Dioxide 20 L (22-30) mmol/L Creatinine 1.45 H (0.66-1.25) mg/dL Glucose 102 H (74-99) mg/dL Plasma Lactic Acid Candido 2.1 H* (0.7-2.0) mmol/L Albumin 3.2 L (3.5-5.0) g/dL Urine Protein (Negative) Urine Blood (Negative) Urine RBC (0-5) /hpf Hyaline Casts (0-2) /lpf Urine Mucus (None) /hpf Crossmatch 03/04/24 03/04/24 Range/Units 02:30 03:35 WBC (3.8-10.6) k/uL RBC (4.30-5.90) m/uL Hgb (13.0-17.5) gm/dL Hct (39.0-53.0) % MCV (80.0-100.0) fL RDW (11.5-15.5) % Plt Count (150-450) k/uL Lymphocytes # (Manual) (1.0-4.8) k/uL Sodium (137-145) mmol/L Carbon Dioxide (22-30) mmol/L Creatinine (0.66-1.25) mg/dL Glucose (74-99) mg/dL Plasma Lactic Acid Candido (0.7-2.0) mmol/L Albumin (3.5-5.0) g/dL Urine Protein Trace H (Negative) Urine Blood Large H (Negative) Urine RBC 146 H (0-5) /hpf Hyaline Casts 13 H (0-2) /lpf Urine Mucus Moderate H (None) /hpf Crossmatch See Detail Chest x-ray: report reviewed Abdominal x-ray: report reviewed Assessment and Plan (1) Pancytopenia Current Visit: Yes Status: Acute Priority: High Code(s): D61.818 - OTHER PANCYTOPENIA SNOMED Code(s): 391953564 Plan: Pancytopenia, new onset -Reviewed labs in this medical record, new onset. Confirmed also with patient's parents that he has not had any abnormal CBCs to date. -PMH, acute illness/concerns for infection/sepsis, new onset purpura, concerns for subclinical Waterhouse Friderichsen syndrome. DIC and APL ab labs ordered. -Pancytopenia laboratory workup also-including iron studies, HIV, hemolysis, paraproteinemia workup. -Have requested stool collection -Varicella PCR ordered as there was another type of rash noted on the patient that included pustules and some scabs. -ID and wound care consulted -Transfuse 1 unit PRBCs for hemoglobin of 6.2 today. CBC in the a.m. Transfuse for hemoglobin less than 7 -Platelets 134,000. No transfusion needed at this time. -WBC low but in a fairly safe range. ANC is normal. No need for G-CSF at this time. -Hold abemaciclib for now -Acute changes in counts may also be multifactorial including medications and cancer treatment exacerbated by acute infection. Pending cultures and workup. Continue monitoring CBC while inpatient. Will follow-up daily. Doctor attests: I performed a history and physical examination of this patient, developed impression and plan of care. Discussed with dictator. I agree with dictators note, documented as a scribe.
[2024-03-04 14:48] LABS: T4, Free (Free Thyroxine) 1.93 ng/dL (0.78-2.19)
[2024-03-04] MEDS: methocarbamoL 500 MG TAB PO SCH (17:16)
[2024-03-04] MEDS: HYDROCORTISONE SUCCINATE 100 MG/2 ML VIAL IV SCH (17:19)
[2024-03-04 17:43] LABS: HIV 2 AB Non-Reactive (Non-Reactive); HIV AB P24 Non-Reactive (Non-Reactive); HIV P24 AG Non-Reactive (Non-Reactive)
[2024-03-04 19:09] LABS: Hepatitis A Antibody IgM Nonreactive (Nonreactive); Hepatitis B Surface Antigen Nonreactive (Nonreactive); Hepatitis C IgG Antibody Nonreactive (Nonreactive)
[2024-03-04 19:32] LABS: Anisocytosis Slight; Basophils % (A) 1 %; Eosinophils # (A) 0.1 k/uL (0-0.7); Eosinophils % (A) 1 %; HCT 35.6 % (39.0-53.0); Lymphocytes % (A) 12 %; MCHC 32.8 g/dL (31.0-37.0); Macrocytosis Slight; Mean Platelet Volume 7.8; Monocytes # (A) 0.4 k/uL (0-1.0); Monocytes % (A) 5 %; Neutrophils # (A) 6.4 k/uL (1.3-7.7); Neutrophils % (A) 80 %; Platelet Count 221 k/uL (150-450); Poikilocytosis Slight; RBC 3.54 m/uL (4.30-5.90); RDW 17.2 % (11.5-15.5)
[2024-03-04 19:33] LABS: HGB 11.7 gm/dL (13.0-17.5)
[2024-03-04 19:34] LABS: MCV 100.7 fL (80.0-100.0)
[2024-03-04 19:35] LABS: % Iron Saturation 19.47 (15.00-50.00); Hepatitis B Core IgM Nonreactive (Nonreactive); Iron 51 UG/DL (65-175); Total Iron Binding Capacity 262 UG/DL (228-460)
--- NOTE | 2024-03-04 21:58 | P.CONS ---
History of Present Illness - Reason for Consult Consult date: 03/04/24 Recent pilonidal cyst removal concern about infection Requesting physician: Reyna De La Rosa - Chief Complaint Nausea vomiting and diarrhea x few days - History of Present Illness Patient is a 43-year male with multiple comorbidities including PTSD anxiety intracranial trauma s/p surgery and recently did have surgery for pilonidal cyst presenting to the hospital complaining of nausea vomiting as well as diarrhea unable to keep anything down patient symptom has been going on for a day or 2 before presentation to the hospital patient denies high-grade fever or any chills and the patient did not have any fever on arrival to the ER patient was tachycardic but not hypotensive or hypoxic and no need for supplemental oxygen patient did have a hemoglobin of 6.2 white count of 2.8, creatinine was 1.45 lactic acid 2.1 UA was not significantly positive HIV hepatitis panel was negative patient was noticed to have some drainage from his sacral wound concerning for possible infected pilonidal cyst per surgery prompted this consultation chest x-ray was negative for acute infiltrate patient has been complaining of some drainage from the sacral wound postsurgery mild did have mild dull aching pain to the area without any radiation Review of Systems Positive point and negatives has been mentioned in the HPI, complete review of systems was performed and all other systems are negative Past Medical History Past Medical History: Cancer, Thyroid Disorder Additional Past Medical History / Comment(s): pilonidal cyst, adrenal insufficiency (sequela of radiation to brain) History of Any Multi-Drug Resistant Organisms: None Reported Additional Past Surgical History / Comment(s): Brain tumor resection 1016, sinus surgery, skin flap Past Psychological History: Anxiety, Depression, PTSD Smoking Status: Vaper Past Alcohol Use History: None Reported Past Drug Use History: Marijuana - Past Family History Father Family Medical History: No Reported History Mother Family Medical History: No Reported History Medications and Allergies Home Medications Medication Instructions Recorded Confirmed Type Hydrocortisone [Cortef] 10 mg PO BID 04/12/18 03/04/24 History Loperamide HCl [Imodium A-D] 2 mg PO HS 04/12/18 03/04/24 History Aspirin EC [Ecotrin Low Dose] 81 mg PO HS 07/23/19 03/04/24 History Pyridoxine [Vitamin B-6] 50 mg PO DAILY 07/23/19 03/04/24 History busPIRone HCL 15 mg PO TID 07/23/19 03/04/24 History Abemaciclib [Verzenio] 200 mg PO BID 03/04/24 03/04/24 History Desmopressin Acetate [Ddavp] 0.1 mg PO HS 03/04/24 03/04/24 History Desmopressin Acetate [Ddavp] 0.2 mg PO DAILY 03/04/24 03/04/24 History Droxidopa [Northera] 300 mg PO TID 03/04/24 03/05/24 History Midodrine [ProAmatine] 5 mg PO TID 03/04/24 03/04/24 History Omeprazole [PriLOSEC] 20 mg PO HS 03/04/24 03/04/24 History Topiramate [Topamax] 75 mg PO BID 03/04/24 03/04/24 History Venlafaxine HCl ER [Effexor XR] 150 mg PO DAILY 03/04/24 03/04/24 History lamoTRIgine [LaMICtal] 100 mg PO BID 03/04/24 03/04/24 History methocarbamoL [Robaxin] 1,000 mg PO TID 03/04/24 03/04/24 History Buprenorphine [Buprenorphine 20 20 mcg TRANSDERM WEEKLY 03/09/24 03/09/24 History MCG/HR] Calamine/Zinc Oxide Lotion 1 applic TOPICAL BID PRN #2 each 03/12/24 Rx [Calamine Lotion] Folic Acid 1 mg PO DAILY #30 tab 03/12/24 Rx Levothyroxine Sodium [Synthroid] 200 mcg PO DAILY@0630 30 Days #60 03/12/24 Rx tab Potassium Chloride ER [K-Dur 10] 20 meq PO BID 30 Days #120 tab 03/12/24 Rx cefTRIAXone [Rocephin] 2 gm IVPB Q24H #10 ml 03/12/24 Rx metroNIDAZOLE [Flagyl] 500 mg PO TID 10 Days #30 tab 03/12/24 Rx Allergies Allergy/AdvReac Type Severity Reaction Status Date / Time pregabalin Allergy Confusion Verified 03/07/24 14:44 Physical Exam Vitals: Vital Signs Temp Pulse Resp BP Pulse Ox 03/04/24 13:49 98.3 F 99 20 116/63 97 03/04/24 07:50 100 18 106/65 95 03/04/24 05:54 98.3 F 99 16 102/66 03/04/24 05:27 98.3 F 103 H 16 105/62 95 03/04/24 04:51 98.3 F 105 H 16 98/61 94 L 03/04/24 04:31 98.4 F 106 H 16 91/56 03/04/24 04:20 98.4 F 112 H 19 84/51 95 03/04/24 03:35 98.4 F 114 H 20 99/62 95 03/03/24 22:12 98.3 F 145 H 18 101/68 95 Intake and Output 03/04/24 03/04/24 03/04/24 06:59 14:59 22:59 Intake Total 280 Balance 280 Intake: Blood Product 280 Rc Pheresis As-3 Unit 280 [id number] GENERAL DESCRIPTION: Middle-aged male lying in bed, no distress. No tachypnea or accessory muscle of respiration use. HEENT: Shows Pallor , no scleral icterus. Oral mucous membrane is dry. No pharyngeal erythema or thrush NECK: Trachea central, no thyromegaly. LUNGS: Unlabored breathing. Clear to auscultation anteriorly. No wheeze or crackle. HEART: S1, S2, regular rate and rhythm. No loud murmur ABDOMEN: Soft, no tenderness , guarding or rigidity, no organomegaly EXTREMITIES: No edema of feet. SKIN: Patient did have a wound to the sacral area with some drainage was cultured NEUROLOGICAL: The patient is awake, alert, oriented x3, mood and affect normal. Results CBC & Chem 7: 03/10/24 04:47 03/12/24 03:57 Labs: Abnormal Lab Results - Last 24 Hours (Table) 03/03/24 03/03/24 03/03/24 Range/Units 23:55 23:55 23:55 WBC 2.8 L (3.8-10.6) k/uL RBC 1.85 L (4.30-5.90) m/uL Hgb 6.2 L* (13.0-17.5) gm/dL Hct 19.5 L* (39.0-53.0) % MCV 105.7 H (80.0-100.0) fL RDW 15.9 H (11.5-15.5) % Plt Count 134 L (150-450) k/uL Lymphocytes # (Manual) 0.36 L (1.0-4.8) k/uL PT (10.0-12.5) sec INR (<1.2) Fibrinogen (200-500) mg/dL Sodium 135 L (137-145) mmol/L Carbon Dioxide 20 L (22-30) mmol/L Creatinine 1.45 H (0.66-1.25) mg/dL Glucose 102 H (74-99) mg/dL Plasma Lactic Acid Candido 2.1 H* (0.7-2.0) mmol/L Total Protein (PEP) (6.2-8.2) g/dL Albumin 3.2 L (3.5-5.0) g/dL Folate (4.40-31.00) ng/mL TSH (0.465-4.680) mIU/L Urine Protein (Negative) Urine Blood (Negative) Urine RBC (0-5) /hpf Hyaline Casts (0-2) /lpf Urine Mucus (None) /hpf Crossmatch 03/04/24 03/04/24 03/04/24 Range/Units 02:30 03:35 12:02 WBC (3.8-10.6) k/uL RBC (4.30-5.90) m/uL Hgb (13.0-17.5) gm/dL Hct (39.0-53.0) % MCV (80.0-100.0) fL RDW (11.5-15.5) % Plt Count (150-450) k/uL Lymphocytes # (Manual) (1.0-4.8) k/uL PT (10.0-12.5) sec INR (<1.2) Fibrinogen (200-500) mg/dL Sodium (137-145) mmol/L Carbon Dioxide (22-30) mmol/L Creatinine (0.66-1.25) mg/dL Glucose (74-99) mg/dL Plasma Lactic Acid Candido (0.7-2.0) mmol/L Total Protein (PEP) (6.2-8.2) g/dL Albumin (3.5-5.0) g/dL Folate (4.40-31.00) ng/mL TSH <0.015 L (0.465-4.680) mIU/L Urine Protein Trace H (Negative) Urine Blood Large H (Negative) Urine RBC 146 H (0-5) /hpf Hyaline Casts 13 H (0-2) /lpf Urine Mucus Moderate H (None) /hpf Crossmatch See Detail 03/04/24 03/04/24 03/04/24 Range/Units 12:02 12:02 12:02 WBC (3.8-10.6) k/uL RBC (4.30-5.90) m/uL Hgb (13.0-17.5) gm/dL Hct (39.0-53.0) % MCV (80.0-100.0) fL RDW (11.5-15.5) % Plt Count (150-450) k/uL Lymphocytes # (Manual) (1.0-4.8) k/uL PT 12.9 H (10.0-12.5) sec INR 1.2 H (<1.2) Fibrinogen 692 H (200-500) mg/dL Sodium (137-145) mmol/L Carbon Dioxide (22-30) mmol/L Creatinine (0.66-1.25) mg/dL Glucose (74-99) mg/dL Plasma Lactic Acid Candido (0.7-2.0) mmol/L Total Protein (PEP) 6.0 L (6.2-8.2) g/dL Albumin (3.5-5.0) g/dL Folate 3.30 L (4.40-31.00) ng/mL TSH (0.465-4.680) mIU/L Urine Protein (Negative) Urine Blood (Negative) Urine RBC (0-5) /hpf Hyaline Casts (0-2) /lpf Urine Mucus (None) /hpf Crossmatch Assessment and Plan (1) Abscess Status: Acute Code(s): L02.91 - CUTANEOUS ABSCESS, UNSPECIFIED SNOMED Code(s): 564565130 (2) Nausea & vomiting Status: Acute Code(s): R11.2 - NAUSEA WITH VOMITING, UNSPECIFIED SNOMED Code(s): 40390037 Plan: 1patient presented to hospital with acute nausea vomiting and diarrhea in this patient who recently did have a pilonidal cyst surgery patient noticed to have some drainage from the area concerning for possible infected cyst likely from enteric gram-negative 2-we will obtain blood cultures local culture has been obtained 3-once creatinine improved to previous CT of the pelvic area to make sure no evidence of any abscess that may need to be drained surgically 4-we will add Zosyn empirically We will follow on clinical condition and cultures to further adjust medication if needed Thank you for this consultation we will follow the patient along with you Dictation was produced using [employer] dictation software. please excuse any grammatical, word or spelling errors. Time with Patient: Greater than 30
[2024-03-04] MEDS: PIPERACILLIN-TAZOBACTAM 3.375 GM in SODIUM CHLORIDE 0.9% 100 ML IVPB SCH (23:10)
[2024-03-05] MEDS: FOLIC ACID 1 MG TAB PO SCH (09:22)
[2024-03-05 10:00] LABS: Anisocytosis Slight; Basophils % (A) 0 %; Eosinophils # (A) 0.1 k/uL (0-0.7); Eosinophils % (A) 1 %; HCT 32.2 % (39.0-53.0); HGB 10.6 gm/dL (13.0-17.5); Lymphocytes # (A) 1.2 k/uL (1.0-4.8); Lymphocytes % (A) 18 %; MCH 33.2 pg (25.0-35.0); MCV 100.4 fL (80.0-100.0); Macrocytosis Slight; Mean Platelet Volume 7.4; Monocytes # (A) 0.3 k/uL (0-1.0); Monocytes % (A) 5 %; Neutrophils # (A) 5.2 k/uL (1.3-7.7); Neutrophils % (A) 75 %; Platelet Count 216 k/uL (150-450); Poikilocytosis Slight; RBC 3.21 m/uL (4.30-5.90); WBC 6.9 k/uL (3.8-10.6)
[2024-03-05 10:21] LABS: ALT 24 U/L (4-49); AST 23 U/L (17-59); African American GFR (CKD) >90 (>60 ml/min/1.73 sqM); Albumin 2.8 g/dL (3.5-5.0); Alkaline Phosphatase 74 U/L (38-126); Anion Gap 5 mmol/L; Blood Urea Nitrogen 18 mg/dL (9-20); Carbon Dioxide 23 mmol/L (22-30); Chloride 111 mmol/L (98-107); Glucose 91 mg/dL (74-99); Non-African American GFR(CKD) >90 (>60 ml/min/1.73 sqM); Potassium 3.7 mmol/L (3.5-5.1); Sodium 139 mmol/L (137-145); Total Bilirubin 0.3 mg/dL (0.2-1.3); Total Protein 5.5 g/dL (6.3-8.2)
[2024-03-05 11:46] LABS: V. zoster Source Blood - Plasma; Varicella zoster Virus by PCR Not detected (Not detected)
--- NOTE | 2024-03-05 12:20 | P.CONS ---
History of Present Illness - Reason for Consult Consult date: 03/05/24 wound care - History of Present Illness This is a 43-year-old patient being seen by the wound care center for a nonhealing ulceration to the sacrum. Patient states that he has had multiple surgeries to his sacral region removing multiple cysts over the last 20 years. Patient has an open ulceration along the midline incision measuring approximately 0.5 x 0.5 x 1 cm patient has a significant amount of stool like drainage noted from the site. Unable to palpate any tunnels no undermining noted. Patient states that the ulceration opened a few weeks ago his daughter had been treating it however it is not had any improvements. Review Of Systems: Constitutional: No fever, no chills, no night sweats. No weight change. No weakness, fatigue or lethargy. No daytime sleepiness. Integumentary:reports wounds, no lesions. No rash or pruritus. No unusual bruising. No change in hair or nails. Physical exam: General Appearance: Alert, cooperative, no distress, appears stated age. Skin: See HPI all other Skin color, texture, tugor normal, no rashes or lesions. Neurologic: Alert oriented x3 Assessment: 1. Nonhealing ulceration with fat layer exposure sacral region Plan: 1. Consult surgery to rule out fistula 2. Apply absorptive silver rope, saline moist gauze, bordered foam change Monday. Avoid sitting for prolonged periods of time. Utilize a air-filled cushion when sitting. Turn patient every 2 hours. Thank you for the consultation any questions please contact the wound care [facility] note has been reviewed and discussed with Dr. Dixon and the impression and plan of care has been directed as dictated. Past Medical History Past Medical History: Cancer, Thyroid Disorder Additional Past Medical History / Comment(s): pilonidal cyst, adrenal insufficiency (sequela of radiation to brain) History of Any Multi-Drug Resistant Organisms: None Reported Additional Past Surgical History / Comment(s): Brain tumor resection 1016, sinus surgery, skin flap Past Anesthesia/Blood Transfusion Reactions: No Reported Reaction Past Psychological History: Anxiety, Depression, PTSD Smoking Status: Vaper Past Alcohol Use History: None Reported Past Drug Use History: Marijuana - Past Family History Father Family Medical History: No Reported History Mother Family Medical History: No Reported History Medications and Allergies Home Medications Medication Instructions Recorded Confirmed Type Hydrocortisone [Cortef] 10 mg PO BID 04/12/18 03/04/24 History Loperamide HCl [Imodium A-D] 2 mg PO HS 04/12/18 03/04/24 History Aspirin EC [Ecotrin Low Dose] 81 mg PO HS 07/23/19 03/04/24 History Pyridoxine [Vitamin B-6] 50 mg PO DAILY 07/23/19 03/04/24 History busPIRone HCL 15 mg PO TID 07/23/19 03/04/24 History Abemaciclib [Verzenio] 200 mg PO BID 03/04/24 03/04/24 History Desmopressin Acetate [Ddavp] 0.1 mg PO HS 03/04/24 03/04/24 History Desmopressin Acetate [Ddavp] 0.2 mg PO DAILY 03/04/24 03/04/24 History Droxidopa [Northera] 100 mg PO TID 03/04/24 03/04/24 History Levothyroxine Sodium [Synthroid] 224 mcg PO DAILY 03/04/24 03/04/24 History Midodrine [ProAmatine] 5 mg PO TID 03/04/24 03/04/24 History Omeprazole [PriLOSEC] 20 mg PO HS 03/04/24 03/04/24 History Potassium Chloride ER [K-Dur 10] 10 meq PO BID 03/04/24 03/04/24 History Topiramate [Topamax] 75 mg PO BID 03/04/24 03/04/24 History Venlafaxine HCl ER [Effexor Xr] 150 mg PO DAILY 03/04/24 03/04/24 History lamoTRIgine [LaMICtal] 100 mg PO BID 03/04/24 03/04/24 History methocarbamoL [Robaxin] 1,000 mg PO TID 03/04/24 03/04/24 History Allergies Allergy/AdvReac Type Severity Reaction Status Date / Time pregabalin Allergy Confusion Verified 03/04/24 09:53 Physical Exam Vitals: Vital Signs Temp Pulse Pulse Resp BP BP Pulse Ox 03/05/24 11:56 97.8 F 89 18 108/53 97 03/05/24 09:00 98.3 F 93 20 101/53 100 03/05/24 04:00 98.2 F 98 18 96/57 94 L 03/05/24 00:00 97.9 F 92 19 96/54 95 03/04/24 21:00 97.9 F 84 18 110/61 97 03/04/24 18:50 97.7 F 95 19 105/55 98 03/04/24 18:00 67 20 117/60 98 03/04/24 16:00 62 18 116/70 98 03/04/24 13:49 98.3 F 99 20 116/63 97 Intake and Output 03/04/24 03/05/24 03/05/24 22:59 06:59 14:59 Output Total 200 600 Balance -200 -600 Output: Urine 200 600 Other: Voiding Method Toilet Toilet Toilet Urinal Urinal Urinal # Voids 1 # Bowel Movements 1 Weight 117.934 kg Results CBC & Chem 7: 03/05/24 09:37 03/05/24 09:37 Labs: Abnormal Lab Results - Last 24 Hours (Table) 03/04/24 03/04/24 03/04/24 Range/Units 12:02 12:02 12:02 RBC (4.30-5.90) m/uL Hgb (13.0-17.5) gm/dL Hct (39.0-53.0) % MCV (80.0-100.0) fL RDW (11.5-15.5) % Haptoglobin (31.2-198.0) mg/dL PT (10.0-12.5) sec INR (<1.2) Fibrinogen (200-500) mg/dL Chloride (98-107) mmol/L Calcium (8.4-10.2) mg/dL Iron 51 L (65-175) UG/DL Transferrin 187.0 L (204.0-354.0) mg/dL Total Protein (6.3-8.2) g/dL Total Protein (PEP) 6.0 L (6.2-8.2) g/dL Albumin (3.5-5.0) g/dL Folate 3.30 L (4.40-31.00) ng/mL TSH <0.015 L (0.465-4.680) mIU/L 03/04/24 03/04/24 03/04/24 Range/Units 12:02 12:02 18:50 RBC 3.54 L (4.30-5.90) m/uL Hgb 11.7 L D (13.0-17.5) gm/dL Hct 35.6 L (39.0-53.0) % MCV 100.7 H D (80.0-100.0) fL RDW 17.2 H (11.5-15.5) % Haptoglobin 269.0 H (31.2-198.0) mg/dL PT 12.9 H (10.0-12.5) sec INR 1.2 H (<1.2) Fibrinogen 692 H (200-500) mg/dL Chloride (98-107) mmol/L Calcium (8.4-10.2) mg/dL Iron (65-175) UG/DL Transferrin (204.0-354.0) mg/dL Total Protein (6.3-8.2) g/dL Total Protein (PEP) (6.2-8.2) g/dL Albumin (3.5-5.0) g/dL Folate (4.40-31.00) ng/mL TSH (0.465-4.680) mIU/L 03/05/24 03/05/24 Range/Units 09:37 09:37 RBC 3.21 L (4.30-5.90) m/uL Hgb 10.6 L (13.0-17.5) gm/dL Hct 32.2 L (39.0-53.0) % MCV 100.4 H (80.0-100.0) fL RDW 17.0 H (11.5-15.5) % Haptoglobin (31.2-198.0) mg/dL PT (10.0-12.5) sec INR (<1.2) Fibrinogen (200-500) mg/dL Chloride 111 H (98-107) mmol/L Calcium 8.0 L (8.4-10.2) mg/dL Iron (65-175) UG/DL Transferrin (204.0-354.0) mg/dL Total Protein 5.5 L (6.3-8.2) g/dL Total Protein (PEP) (6.2-8.2) g/dL Albumin 2.8 L (3.5-5.0) g/dL Folate (4.40-31.00) ng/mL TSH (0.465-4.680) mIU/L Microbiology - Last 24 Hours (Table) 03/04/24 18:19 Gram Stain - Preliminary Buttock Assessment and Plan (1) Non-pressure chronic ulcer of skin of other sites with fat layer exposed Current Visit: Yes Status: Acute Code(s): L98.492 - NON-PRS CHRONIC ULCER OF SKIN OF SITES W FAT LAYER EXPOSED SNOMED Code(s): 93072540
[2024-03-05 13:07] LABS: Free Kappa Lt Chain Qnt, Serum 4.34 mg/dL (0.33-1.94); Free Lambda Lt Chain Qnt, Seru 3.54 mg/dL (0.57-2.63)
[2024-03-05] MEDS ORDERED: IOPAMIDOL CONTRAST (ORAL USE) VIAL PO PRN (14:07)
--- NOTE | 2024-03-05 15:20 | P.PN ---
Subjective Progress Note Date: 03/05/24 43-year-old male with history of chordoma of the brain, slow-growing tumor and is on oral chemotherapy on daily basis came in with complaints of nausea vomiting diarrhea without any blood in the stools, hematemesis or dark stools. Patient had a significantly low hemoglobin of around 6.2 on admission patient previous hemoglobin was 12 few months ago patient has macrocytic anemia. Patient patient also has pancytopenia. B12 and multiple other tests were ordered by hematology who evaluated the patient. Patient also has a renal insufficiency for which patient takes 10 mg hydrocortisone twice a day dose of which is being increased and now as patient is hospitalized. Patient had any fever chills patient denies any recent antibiotic use. Patient denies any flulike symptoms. 03/05/2024 This is a pleasant patient who was evaluated in follow-up on the medical floor. Patient has no longer complaints of nausea vomiting or diarrhea at this time. There is concern that this pilonidal cyst that has had multiple I&D's and surgery on is infected. On palpation there is evidence of brown colored purulent discharge and concern for a fistula and general surgery has been consulted for evaluation. This was examined at the bedside with wound care. Patient continues on IV Zosyn at this time. Blood cultures are currently pending and negative so far. Additionally IV Solu-Cortef has been increased in dosage there is concern for an adrenal crisis leading to a petechial rash. Hematology is following al josh for this. Patient's repeat blood work today reveals a white blood cell count of 6.9, hemoglobin 10.6, MCV 100.4. His renal function has normalized with a BUN of 18 and a creatinine of 0.91. His TSH comes back low at less than 0.015 and a normal free T4 we are recommending to decrease his dose of levothyroxine to 100 mcg daily because of this. His iron studies do not suggest any iron deficiency. Varicella not detected and his hepatitis panel and HIV panel are nonreactive. At this time is afebrile he is on room air. Review of Systems Constitutional: Denied any fatigue denied any fever. Cardio vascular: denied any chest pain, palpitations Gastrointestinal: denied any nausea, vomiting, diarrhea Pulmonary: Denied any shortness of breath cough Neurologic denied any new focal deficits All inpatient medications were reviewed and appropriate changes in these medications as dictated in the interval history and assessment and plan. PHYSICAL EXAMINATION: GENERAL: The patient is alert and oriented x3, not in any acute distress. Well developed, well nourished. HEENT: Pupils are round an d equally reacting to light. EOMI. No scleral icterus. Does have conjunctival pallor. Normocephalic, atraumatic. No pharyngeal erythema. No thyromegaly. CARDIOVASCULAR: S1 and S2 present. No murmurs, rubs, or gallops. PULMONARY: Chest is clear to auscultation, no wheezing or crackles. ABDOMEN: Soft, nontender, nondistended, normoactive bowel sounds. No palpable organomegaly. MUSCULOSKELETAL: No joint swelling or deformity. EXTREMITIES: No cyanosis, clubbing, or pedal edema. NEUROLOGICAL: Gross neurological examination did not reveal any focal deficits. SKIN: No rashes. As mentioned in the HPI there is a small slit on a healed scar on patient's lower back with evidence of purulent brown drainage. Assessment and plan -Nausea vomiting diarrhea: Probably gastroenteritis or gastritis patient will be started on IV fluids, symptoms have improved at this time. -Acute renal failure baseline creatinine is normal at baseline few months ago. Patient will be started and continued on IV fluids. Renal function has normalized. -Severe anemia unknown whether patient has acute blood loss clinically patient denies any acute blood loss symptoms, patient has elevated MCV B12 levels were obtained oncology evaluated the patient patient does have pancytopenia. His blood counts are normalizing. -Pancytopenia and macrocytosis his B12 level is WNL. -Nonhealing ulceration to the sacral region where he has had prior pilonoidal cyst surgery with concern for fistua. General surgery consulted and local wound care in place with absorptive silver. -Anxiety and depression -Adrenal insufficiency increasing the dose of hydrocortisone to cope up with the hospitalization stress. Adrenal crisis leading to petechial rash. -Patient is also on desmopressin which will be continued -Patient did not give any clear history of seizures but patient is on multiple antiseizure medications which are being resumed at this time -Chordoma: patient has had surgery and radiation in the past on chemotherapy. GI prophylaxis Full Code Plan DVT prophylaxis: Ambulation, because of severely low hemoglobin and mild thrombocytopenia holding of any pharmacological DVT prophylaxis and patient is fairly ambulatory at this time. The impression and plan of care has been dictated by Susan Hawkins, Nurse Practitioner as directed. Dr. Haydee MD I have performed a history and physical examination and medical decision making of this patient, discussed the same with the dictator, and agree with the dictators assessment and plan as written, documented as a scribe. Based on total visit time, I have performed more than 50% of this visit. Objective - Vital Signs Vital signs: Vital Signs Temp 97.8 F 03/05/24 11:56 Pulse 89 03/05/24 11:56 Resp 18 03/05/24 11:56 BP 108/53 03/05/24 11:56 Pulse Ox 97 03/05/24 11:56 FiO2 Intake & Output 03/04/24 03/05/24 03/05/24 18:59 06:59 18:59 Output Total 800 325 Balance -800 -325 Weight 117.934 kg Output: Urine 800 325 Other: Voiding Method Toilet Urinal Urinal # Voids 1 # Bowel Movements 1 - Labs CBC & Chem 7: 03/05/24 09:37 03/05/24 09:37 Labs: Abnormal Lab Results - Last 24 Hours (Table) 03/04/24 03/04/24 03/04/24 Range/Units 12:02 12:02 12:02 RBC (4.30-5.90) m/uL Hgb (13.0-17.5) gm/dL Hct (39.0-53.0) % MCV (80.0-100.0) fL RDW (11.5-15.5) % Haptoglobin (31.2-198.0) mg/dL Chloride (98-107) mmol/L Calcium (8.4-10.2) mg/dL Iron 51 L (65-175) UG/DL Transferrin 187.0 L (204.0-354.0) mg/dL Total Protein (6.3-8.2) g/dL Total Protein (PEP) 6.0 L (6.2-8.2) g/dL Albumin (3.5-5.0) g/dL Folate 3.30 L (4.40-31.00) ng/mL Free [place] LC, Quant 4.34 H (0.33-1.94) mg/dL Free Lambda LC, Quant 3.54 H (0.57-2.63) mg/dL 03/04/24 03/04/2403/05/24 Range/Units 12:02 18:50 09:37 RBC 3.54 L 3.21 L (4.30-5.90) m/uL Hgb 11.7 L D 10.6 L (13.0-17.5) gm/dL Hct 35.6 L 32.2 L (39.0-53.0) % MCV 100.7 H D 100.4 H (80.0-100.0) fL RDW 17.2 H 17.0 H (11.5-15.5) % Haptoglobin 269.0 H (31.2-198.0) mg/dL Chloride (98-107) mmol/L Calcium (8.4-10.2) mg/dL Iron (65-175) UG/DL Transferrin (204.0-354.0) mg/dL Total Protein (6.3-8.2) g/dL Total Protein (PEP) (6.2-8.2) g/dL Albumin (3.5-5.0) g/dL Folate (4.40-31.00) ng/mL Free [place] LC, Quant (0.33-1.94) mg/dL Free Lambda LC, Quant (0.57-2.63) mg/dL 03/05/24 Range/Units 09:37 RBC (4.30-5.90) m/uL Hgb (13.0-17.5) gm/dL Hct (39.0-53.0) % MCV (80.0-100.0) fL RDW (11.5-15.5) % Haptoglobin (31.2-198.0) mg/dL Chloride 111 H (98-107) mmol/L Calcium 8.0 L (8.4-10.2) mg/dL Iron (65-175) UG/DL Transferrin (204.0-354.0) mg/dL Total Protein 5.5 L (6.3-8.2) g/dL Total Protein (PEP) (6.2-8.2) g/dL Albumin 2.8 L (3.5-5.0) g/dL Folate (4.40-31.00) ng/mL Free [place] LC, Quant (0.33-1.94) mg/dL Free Lambda LC, Quant (0.57-2.63) mg/dL Microbiology - Last 24 Hours (Table) 03/04/24 18:19 Gram Stain - Preliminary Buttock Assessment and Plan Time with Patient: Less than 30
--- NOTE | 2024-03-05 15:43 | P.GSCN ---
History of Present Illness Consult date: 03/05/24 History of present illness: CHIEF COMPLAINT: Nausea vomiting and diarrhea HISTORY OF PRESENT ILLNESS: This is a 43-year-old male who presented to the hospital with complaints of nausea, vomiting and diarrhea. Patient with a known history of chordoma of the brain, slow-growing tumor and is on chemotherapy. Patient is pancytopenic on admission. Patient has a chronic sacral wound. He has a history of pilonidal cyst with multiple surgeries that were completed at the [facility]. Patient reports his last surgery was over a year ago. He is followed by a home care wound care service. Patient evaluated by wound care service during this admission. They recommended surgical evaluation for the Open sacral wound and to rule out fistula. Patient has purulent drainage from the wound. He denies any pain. Denies any fever chills or sweats. PAST MEDICAL HISTORY: Brain tumor, pilonidal cyst, adrenal insufficiency PAST SURGICAL HISTORY: Brain tumor resection 2016, sinus surgery, skin flap MEDICATIONS: See below ALLERGIES: See below SOCIAL HISTORY: No illicit drug use. REVIEW OF SYSTEMS: CONSTITUTIONAL: Denies fever or chills. HEENT: Denies blurred vision, vision changes, or eye pain. Denies hemoptysis CARDIOVASCULAR: Denies chest pain or pressure. RESPIRATORY: No shortness of breath. GASTROINTESTINAL: See HPI for pertinent findings HEMATOLOGIC: Denies bleeding disorders. GENITOURINARY: Denies any blood in urine or increased urinary frequency. SKIN: Denies pruitis. Denies rash. PHYSICAL EXAM: VITAL SIGNS: Reviewed GENERAL: Well-developed in no acute distress. HEENT: No sclera icterus. Extraocular movements grossly intact. Moist buccal mucosa. Head is atraumatic, normocephalic. No nasal drainage. ABDOMEN: Soft. Nondistended. Nondistended NEUROLOGIC: Alert and oriented. Cranial nerves II through XII grossly intact. SKIN: Open ulceration with purulent drainage at old incision. Patient has old scarring that is otherwise healed. There is some crusting. LABORATORY DATA: WBC 6.9 Hgb 6.2 now 10.6 platelets 216 sodium 139 potassium 3.7 creatinine 0.91 IMAGING: ASSESSMENT: 1. Sacral ulcer with purulent drainage 2. History of pilonidal cyst with multiple surgeries PLAN: -Will have nursing staff shower patient -Continue local wound care -Continue antibiotics per ID service -Further recommendations forthcoming per surgeon Physician Puppy Sitter note has been reviewed by physician. Signing provider agrees with the documented findings, assessment, and plan of care. Past Medical History Past Medical History: Cancer, Thyroid Disorder Additional Past Medical History / Comment(s): pilonidal cyst, adrenal insufficiency (sequela of radiation to brain) History of Any Multi-Drug Resistant Organisms: None Reported Additional Past Surgical History / Comment(s): Brain tumor resection 1016, sinus surgery, skin flap Past Anesthesia/Blood Transfusion Reactions: No Reported Reaction Past Psychological History: Anxiety, Depression, PTSD Smoking Status: Vaper Past Alcohol Use History: None Reported Past Drug Use History: Marijuana - Past Family History Father Family Medical History: No Reported History Mother Family Medical History: No Reported History Medications and Allergies Home Medications Medication Instructions Recorded Confirmed Type Hydrocortisone [Cortef] 10 mg PO BID 04/12/18 03/04/24 History Loperamide HCl [Imodium A-D] 2 mg PO HS 04/12/18 03/04/24 History Aspirin EC [Ecotrin Low Dose] 81 mg PO HS 07/23/19 03/04/24 History Pyridoxine [Vitamin B-6] 50 mg PO DAILY 07/23/19 03/04/24 History busPIRone HCL 15 mg PO TID 07/23/19 03/04/24 History Abemaciclib [Verzenio] 200 mg PO BID 03/04/24 03/04/24 History Desmopressin Acetate [Ddavp] 0.1 mg PO HS 03/04/24 03/04/24 History Desmopressin Acetate [Ddavp] 0.2 mg PO DAILY 03/04/24 03/04/24 History Droxidopa [Northera] 100 mg PO TID 03/04/24 03/04/24 History Levothyroxine Sodium [Synthroid] 224 mcg PO DAILY 03/04/24 03/04/24 History Midodrine [ProAmatine] 5 mg PO TID 03/04/24 03/04/24 History Omeprazole [PriLOSEC] 20 mg PO HS 03/04/24 03/04/24 History Potassium Chloride ER [K-Dur 10] 10 meq PO BID 03/04/24 03/04/24 History Topiramate [Topamax] 75 mg PO BID 03/04/24 03/04/24 History Venlafaxine HCl ER [Effexor Xr] 150 mg PO DAILY 03/04/24 03/04/24 History lamoTRIgine [LaMICtal] 100 mg PO BID 03/04/24 03/04/24 History methocarbamoL [Robaxin] 1,000 mg PO TID 03/04/24 03/04/24 History Allergies Allergy/AdvReac Type Severity Reaction Status Date / Time pregabalin Allergy Confusion Verified 03/04/24 09:53 Surgical - Exam Vital Signs Temp Pulse Resp BP Pulse Ox 98.3 F 145 H 18 101/68 95 03/03/24 22:12 03/03/24 22:12 03/03/24 22:12 03/03/24 22:12 03/03/24 22:12 Results - Labs 03/05/24 09:37 03/05/24 09:37 Abnormal Lab Results - Last 24 Hours (Table) 03/04/24 03/04/24 03/04/24 Range/Units 12:02 12:02 12:02 RBC (4.30-5.90) m/uL Hgb (13.0-17.5) gm/dL Hct (39.0-53.0) % MCV (80.0-100.0) fL RDW (11.5-15.5) % Haptoglobin (31.2-198.0) mg/dL Chloride (98-107) mmol/L Calcium (8.4-10.2) mg/dL Iron 51 L (65-175) UG/DL Transferrin 187.0 L (204.0-354.0) mg/dL Total Protein (6.3-8.2) g/dL Total Protein (PEP) 6.0 L (6.2-8.2) g/dL Albumin (3.5-5.0) g/dL Folate 3.30 L (4.40-31.00) ng/mL Free [place] LC, Quant 4.34 H (0.33-1.94) mg/dL Free Lambda LC, Quant 3.54 H (0.57-2.63) mg/dL 03/04/24 03/04/24 03/05/24 Range/Units 12:02 18:50 09:37 RBC 3.54 L 3.21 L (4.30-5.90) m/uL Hgb 11.7 L D 10.6 L (13.0-17.5) gm/dL Hct 35.6 L 32.2 L (39.0-53.0) % MCV 100.7 H D 100.4 H (80.0-100.0) fL RDW 17.2 H 17.0 H (11.5-15.5) % Haptoglobin 269.0 H (31.2-198.0) mg/dL Chloride (98-107) mmol/L Calcium (8.4-10.2) mg/dL Iron (65-175) UG/DL Transferrin (204.0-354.0) mg/dL Total Protein (6.3-8.2) g/dL Total Protein (PEP) (6.2-8.2) g/dL Albumin (3.5-5.0) g/dL Folate (4.40-31.00) ng/mL Free [place] LC, Quant (0.33-1.94) mg/dL Free Lambda LC, Quant (0.57-2.63) mg/dL 03/05/24 Range/Units 09:37 RBC (4.30-5.90) m/uL Hgb (13.0-17.5) gm/dL Hct (39.0-53.0) % MCV (80.0-100.0) fL RDW (11.5-15.5) % Haptoglobin (31.2-198.0) mg/dL Chloride 111 H (98-107) mmol/L Calcium 8.0 L (8.4-10.2) mg/dL Iron (65-175) UG/DL Transferrin (204.0-354.0) mg/dL Total Protein 5.5 L (6.3-8.2) g/dL Total Protein (PEP) (6.2-8.2) g/dL Albumin 2.8 L (3.5-5.0) g/dL Folate (4.40-31.00) ng/mL Free [place] LC, Quant (0.33-1.94) mg/dL Free Lambda LC, Quant (0.57-2.63) mg/dL Microbiology - Last 24 Hours (Table) 03/04/24 18:19 Gram Stain - Preliminary Buttock Diabetes panel 03/05/24 Range/Units 09:37 Sodium 139 (137-145) mmol/L Potassium 3.7 (3.5-5.1) mmol/L Chloride 111 H (98-107) mmol/L Carbon Dioxide 23 (22-30) mmol/L BUN 18 (9-20) mg/dL Creatinine 0.91 (0.66-1.25) mg/dL Glucose 91 (74-99) mg/dL Calcium 8.0 L (8.4-10.2) mg/dL AST 23 (17-59) U/L ALT 24 (4-49) U/L Alkaline Phosphatase 74 (38-126) U/L Total Protein 5.5 L (6.3-8.2) g/dL Albumin 2.8 L (3.5-5.0) g/dL Calcium panel 03/05/24 Range/Units 09:37 Calcium 8.0 L (8.4-10.2) mg/dL Albumin 2.8 L (3.5-5.0) g/dL Pituitary panel 03/05/24 Range/Units 09:37 Sodium 139 (137-145) mmol/L Potassium 3.7 (3.5-5.1) mmol/L Chloride 111 H (98-107) mmol/L Carbon Dioxide 23 (22-30) mmol/L BUN 18 (9-20) mg/dL Creatinine 0.91 (0.66-1.25) mg/dL Glucose 91 (74-99) mg/dL Calcium 8.0 L (8.4-10.2) mg/dL Adrenal panel 03/05/24 Range/Units 09:37 Sodium 139 (137-145) mmol/L Potassium 3.7 (3.5-5.1) mmol/L Chloride 111 H (98-107) mmol/L Carbon Dioxide 23 (22-30) mmol/L BUN 18 (9-20) mg/dL Creatinine 0.91 (0.66-1.25) mg/dL Glucose 91 (74-99) mg/dL Calcium 8.0 L (8.4-10.2) mg/dL Total Bilirubin 0.3 (0.2-1.3) mg/dL AST 23 (17-59) U/L ALT 24 (4-49) U/L Alkaline Phosphatase 74 (38-126) U/L Total Protein 5.5 L (6.3-8.2) g/dL Albumin 2.8 L (3.5-5.0) g/dL
[2024-03-05] MEDS: DROXIDOPA 100 MG PO SCH ×2 (15:53→17:05)
--- NOTE | 2024-03-05 16:20 | P.PN ---
Subjective Progress Note Date: 03/05/24 Principal diagnosis: Reason for follow-up is infected sacral wound Patient is a 43-year male with multiple comorbidities including PTSD anxiety intracranial trauma s/p surgery and recently did have surgery for pilonidal cyst presenting to the hospital complaining of nausea vomiting as well as diarrhea, patient was noticed to have drainage from his sacral wound probably this consultation. On today's visit that is 03/05/2024, the patient continues to be afebrile, the patient is on room air and breathing comfortably, the Pt denies having any chest pain or cough, the patient denies having any abdominal pain no further vomiting or any diarrhea , denies any worsening pain to the sacral wound area. Patient white count 6.9 creatinine 0.91 cultures are currently pending Objective - Vital Signs Vital signs: Vital Signs Temp 97.8 F 03/05/24 11:56 Pulse 89 03/05/24 11:56 Resp 18 03/05/24 11:56 BP 108/53 03/05/24 11:56 Pulse Ox 97 03/05/24 11:56 FiO2 Intake & Output 03/04/24 03/05/24 03/05/24 18:59 06:59 18:59 Output Total 800 325 Balance -800 -325 Weight 117.934 kg Output: Urine 800 325 Other: Voiding Method Toilet Urinal Urinal # Voids 1 # Bowel Movements 1 - Exam GENERAL DESCRIPTION: Middle-age male lying in bed in no distress RESPIRATORY SYSTEM: Unlabored breathing , decreased breath sounds at bases HEART: S1 S2 regular rate and rhythm , ABDOMEN: Soft , no tenderness EXTREMITIES: No edema feet - Labs CBC & Chem 7: 03/05/24 09:37 03/05/24 09:37 Labs: Abnormal Lab Results - Last 24 Hours (Table) 03/04/24 03/04/24 03/04/24 Range/Units 12:02 12:02 12:02 RBC (4.30-5.90) m/uL Hgb (13.0-17.5) gm/dL Hct (39.0-53.0) % MCV (80.0-100.0) fL RDW (11.5-15.5) % Haptoglobin (31.2-198.0) mg/dL Chloride (98-107) mmol/L Calcium (8.4-10.2) mg/dL Iron 51 L (65-175) UG/DL Transferrin 187.0 L (204.0-354.0) mg/dL Total Protein (6.3-8.2) g/dL Total Protein (PEP) 6.0 L (6.2-8.2) g/dL Albumin (3.5-5.0) g/dL Folate 3.30 L (4.40-31.00) ng/mL Free [place] LC, Quant 4.34 H (0.33-1.94) mg/dL Free [place] LC, Quant 3.54 H (0.57-2.63) mg/dL 03/04/24 03/04/24 03/05/24 Range/Units 12:02 18:50 09:37 RBC 3.54 L 3.21 L (4.30-5.90) m/uL Hgb 11.7 L D 10.6 L (13.0-17.5) gm/dL Hct 35.6 L 32.2 L (39.0-53.0) % MCV 100.7 H D 100.4 H (80.0-100.0) fL RDW 17.2 H 17.0 H (11.5-15.5) % Haptoglobin 269.0 H (31.2-198.0) mg/dL Chloride (98-107) mmol/L Calcium (8.4-10.2) mg/dL Iron (65-175) UG/DL Transferrin (204.0-354.0) mg/dL Total Protein (6.3-8.2) g/dL Total Protein (PEP) (6.2-8.2) g/dL Albumin (3.5-5.0) g/dL Folate (4.40-31.00) ng/mL Free [place] LC, Quant (0.33-1.94) mg/dL Free [place] LC, Quant (0.57-2.63) mg/dL 03/05/24 Range/Units 09:37 RBC (4.30-5.90) m/uL Hgb (13.0-17.5) gm/dL Hct (39.0-53.0) % MCV (80.0-100.0) fL RDW (11.5-15.5) % Haptoglobin (31.2-198.0) mg/dL Chloride 111 H (98-107) mmol/L Calcium 8.0 L (8.4-10.2) mg/dL Iron (65-175) UG/DL Transferrin (204.0-354.0) mg/dL Total Protein 5.5 L (6.3-8.2) g/dL Total Protein (PEP) (6.2-8.2) g/dL Albumin 2.8 L (3.5-5.0) g/dL Folate (4.40-31.00) ng/mL Free [place] LC, Quant (0.33-1.94) mg/dL Free [place] LC, Quant (0.57-2.63) mg/dL Microbiology - Last 24 Hours (Table) 03/04/24 18:19 Gram Stain - Preliminary Buttock Assessment and Plan (1) Abscess Current Visit: Yes Status: Acute Code(s): L02.91 - CUTANEOUS ABSCESS, UNSPECIFIED SNOMED Code(s): 770320691 (2) Non-pressure chronic ulcer of skin of other sites with fat layer exposed Current Visit: Yes Status: Acute Code(s): L98.492 - NON-PRS CHRONIC ULCER OF SKIN OF SITES W FAT LAYER EXPOSED SNOMED Code(s): 88351240 Plan: 1patient presented to hospital with acute nausea vomiting and diarrhea in this patient who recently did have a pilonidal cyst surgery patient noticed to have some drainage from the area concerning for possible infected cyst likely from enteric gram-negative 2-we will obtain blood cultures local culture has been obtained 3-patient did have improvement in his creatinine will order CT of the pelvic area to make sure no evidence of any abscess that may need to be drained surgically 4-patient to continue Zosyn empirically while waiting for the culture to finalize Dictation was produced using [employer] dictation software. please excuse any grammatical, word or spelling errors. Time with Patient: Less than 30
[2024-03-05 18:51] LABS: Cardiolipin Ab IgG Interp Negative (Negative); Cardiolipin Ab IgM Interp Negative (Negative); Cardiolipin IgA Antibody <2.0 U/mL; Cardiolipin IgM Antibody <1.5 U/mL
[2024-03-05 19:17] LABS: Albumin 2.95 g/dL (3.80-4.90)
--- NOTE | 2024-03-05 20:35 | P.PN ---
Subjective Progress Note Date: 03/05/24 Principal diagnosis: pancytopenia Today pt remains in good spirits, he denies any new c/o on a focused ETHEL, he is eating and drinking. Chronic leg pain is stable. Objective - Vital Signs Vital signs: Vital Signs Temp 98.3 F 03/05/24 09:00 Pulse 93 03/05/24 09:00 Resp 20 03/05/24 09:00 BP 101/53 03/05/24 09:00 Pulse Ox 100 03/05/24 09:00 FiO2 Intake & Output 03/04/24 03/05/24 03/05/24 18:59 06:59 18:59 Output Total 800 Balance -800 Weight 117.934 kg Output: Urine 800 Other: Voiding Method Toilet Toilet Urinal Urinal # Voids 1 # Bowel Movements 1 - Constitutional General appearance: Present: average body habitus, cooperative, no acute distress - EENT Eyes: Present: anicteric sclerae ENT: Present: hearing grossly normal - Respiratory Details: gordy even and unlabored - Cardiovascular Details: skin warm and dry to touch - Peripheral edema leg Peripheral Edema: bilateral: None - Gastrointestinal General gastrointestinal: Present: soft - Integumentary Integumentary Comment(s): petechiae/purpura of the distal extremities-stable mod pustular rash on the back less red - Neurologic Neurologic: Present: CNII-XII intact - Musculoskeletal Musculoskeletal: Present: strength equal bilaterally - Psychiatric Psychiatric: Present: A&O x's 3, appropriate affect, intact judgment & insight - Labs CBC & Chem 7: 03/05/24 09:37 03/05/24 09:37 Labs: Abnormal Lab Results - Last 24 Hours (Table) 03/04/24 03/04/24 03/04/24 Range/Units 12:02 12:02 12:02 RBC (4.30-5.90) m/uL Hgb (13.0-17.5) gm/dL Hct (39.0-53.0) % MCV (80.0-100.0) fL RDW (11.5-15.5) % Haptoglobin (31.2-198.0) mg/dL PT (10.0-12.5) sec INR (<1.2) Fibrinogen (200-500) mg/dL Chloride (98-107) mmol/L Calcium (8.4-10.2) mg/dL Iron 51 L (65-175) UG/DL Transferrin 187.0 L (204.0-354.0) mg/dL Total Protein (6.3-8.2) g/dL Total Protein (PEP) 6.0 L (6.2-8.2) g/dL Albumin (3.5-5.0) g/dL Folate 3.30 L (4.40-31.00) ng/mL TSH <0.015 L (0.465-4.680) mIU/L 03/04/24 03/04/24 03/04/24 Range/Units 12:02 12:02 18:50 RBC 3.54 L (4.30-5.90) m/uL Hgb 11.7 L D (13.0-17.5) gm/dL Hct 35.6 L (39.0-53.0) % MCV 100.7 H D (80.0-100.0) fL RDW 17.2 H (11.5-15.5) % Haptoglobin 269.0 H (31.2-198.0) mg/dL PT 12.9 H (10.0-12.5) sec INR 1.2 H (<1.2) Fibrinogen 692 H (200-500) mg/dL Chloride (98-107) mmol/L Calcium (8.4-10.2) mg/dL Iron (65-175) UG/DL Transferrin (204.0-354.0) mg/dL Total Protein (6.3-8.2) g/dL Total Protein (PEP) (6.2-8.2) g/dL Albumin (3.5-5.0) g/dL Folate (4.40-31.00) ng/mL TSH (0.465-4.680) mIU/L 03/05/24 03/05/24 Range/Units 09:37 09:37 RBC 3.21 L (4.30-5.90) m/uL Hgb 10.6 L (13.0-17.5) gm/dL Hct 32.2 L (39.0-53.0) % MCV 100.4 H (80.0-100.0) fL RDW 17.0 H (11.5-15.5) % Haptoglobin (31.2-198.0) mg/dL PT (10.0-12.5) sec INR (<1.2) Fibrinogen (200-500) mg/dL Chloride 111 H (98-107) mmol/L Calcium 8.0 L (8.4-10.2) mg/dL Iron (65-175) UG/DL Transferrin (204.0-354.0) mg/dL Total Protein 5.5 L (6.3-8.2) g/dL Total Protein (PEP) (6.2-8.2) g/dL Albumin 2.8 L (3.5-5.0) g/dL Folate (4.40-31.00) ng/mL TSH (0.465-4.680) mIU/L Microbiology - Last 24 Hours (Table) 03/04/24 18:19 Gram Stain - Preliminary Buttock Assessment and Plan (1) Pancytopenia Current Visit: Yes Status: Acute Priority: High Code(s): D61.818 - OTHER PANCYTOPENIA SNOMED Code(s): 825124717 Plan: Pancytopenia -CBC today revealed a normal WBC of 8, Hgb 11.7 s/p 1 unit for a Hgb of 6.2 on admit. Plt normal at 221,000. Unclear for the dramatic change in counts overnight -PMH, acute illness/concerns for infection/sepsis, new onset purpura. DIC labs neg. APL ab labs ordered, neg. Not suspecting Waterhouse Friderichsen syndrome at this time -Pancytopenia laboratory workup - iron studies(no significant deficiency), folate low supplement started (mother reports that pt folate is always low), HIV(neg), hemolysis (neg), paraproteinemia workup reports no monoclonal protein, K/L elevated with normal ratio most consistent with infection/inflammation. -Have requested stool collection-pending -Varicella PCR neg. Rash on back looked better today -ID and wound care consulted -Transfused 1 unit PRBCs for hemoglobin of 6.2. CBC today reports Hgb 11.7. -WBC/ANC normal -Cont to hold abemaciclib for now -Acute changes in counts multifactorial including medications and cancer treatment exacerbated by acute infection. Pending cultures and workup. Continue monitoring CBC while inpatient. -No additional work up at this time. Will cont to monitor counts Reviewed results with pt mother over the phone Doctor attests: I performed a history and physical examination of this patient, developed impression and plan of care. Discussed with dictator. I agree with dictators note, documented as a scribe.
[2024-03-06] MEDS: LEVOTHYROXINE 100 MCG TAB PO SCH (06:29)
[2024-03-06 10:41] LABS: Anisocytosis Slight; Basophils % (A) 1 %; Eosinophils # (A) 0.1 k/uL (0-0.7); Eosinophils % (A) 1 %; HCT 31.6 % (39.0-53.0); HGB 10.1 gm/dL (13.0-17.5); Hypochromasia Slight; Lymphocytes % (A) 23 %; MCH 32.7 pg (25.0-35.0); Macrocytosis Slight; Mean Platelet Volume 7.6; Monocytes # (A) 0.2 k/uL (0-1.0); Monocytes % (A) 4 %; Neutrophils # (A) 3.3 k/uL (1.3-7.7); Neutrophils % (A) 71 %; Platelet Count 188 k/uL (150-450); Poikilocytosis Slight; RDW 16.8 % (11.5-15.5); WBC 4.6 k/uL (3.8-10.6)
[2024-03-06 13:18] LABS: APTT 50 Sec(s) (<43); APTT 1:1 Mix 45 Sec(s) (<43); Dilute Russell Viper Venom 40 Sec(s) (<44); Hexagonal Phase Neutralization Positive (Negative)
--- NOTE | 2024-03-06 13:50 | P.PN ---
Subjective Progress Note Date: 03/06/24 43-year-old male with history of chordoma of the brain, slow-growing tumor and is on oral chemotherapy on daily basis came in with complaints of nausea vomiting diarrhea without any blood in the stools, hematemesis or dark stools. Patient had a significantly low hemoglobin of around 6.2 on admission patient previous hemoglobin was 12 few months ago patient has macrocytic anemia. Patient patient also has pancytopenia. B12 and multiple other tests were ordered by hematology who evaluated the patient. Patient also has a renal insufficiency for which patient takes 10 mg hydrocortisone twice a day dose of which is being increased and now as patient is hospitalized. Patient had any fever chills patient denies any recent antibiotic use. Patient denies any flulike symptoms. 03/05/2024 This is a pleasant patient who was evaluated in follow-up on the medical floor. Patient has no longer complaints of nausea vomiting or diarrhea at this time. There is concern that this pilonidal cyst that has had multiple I&D's and surgery on is infected. On palpation there is evidence of brown colored purulent discharge and concern for a fistula and general surgery has been consulted for evaluation. This was examined at the bedside with wound care. Patient continues on IV Zosyn at this time. Blood cultures are currently pending and negative so far. Additionally IV Solu-Cortef has been increased in dosage there is concern for an adrenal crisis leading to a petechial rash. Hematology is following al josh for this. Patient's repeat blood work today reveals a white blood cell count of 6.9, hemoglobin 10.6, MCV 100.4. His renal function has normalized with a BUN of 18 and a creatinine of 0.91. His TSH comes back low at less than 0.015 and a normal free T4 we are recommending to decrease his dose of levothyroxine to 100 mcg daily because of this. His iron studies do not suggest any iron deficiency. Varicella not detected and his hepatitis panel and HIV panel are nonreactive. At this time is afebrile he is on room air. 03/06/2024 Patient evaluated in follow up today. No acute complaints overnight. Continues with petichial rash. Surgery recommending no surgical intervention at this time for the sacral wound. Cultures so far showing Strep A and gram negative bacilli. Continues on IV zosyn. ID followoing closely. Hematology following. Review of Systems Constitutional: Denied any fatigue denied any fever. Cardio vascular: denied any chest pain, palpitations Gastrointestinal: denied any nausea, vomiting, diarrhea Pulmonary: Denied any shortness of breath cough Neurologic denied any new focal deficits All inpatient medications were reviewed and appropriate changes in these medi cations as dictated in the interval history and assessment and plan. PHYSICAL EXAMINATION: GENERAL: The patient is alert and oriented x3, not in any acute distress. Well developed, well nourished. HEENT: Pupils are round an d equally reacting to light. EOMI. No scleral icterus. Does have conjunctival pallor. Normocephalic, atraumatic. No pharyngeal erythema. No thyromegaly. CARDIOVASCULAR: S1 and S2 present. No murmurs, rubs, or gallops. PULMONARY: Chest is clear to auscultation, no wheezing or crackles. ABDOMEN: Soft, nontender, nondistended, normoactive bowel sounds. No palpable organomegaly. MUSCULOSKELETAL: No joint swelling or deformity. EXTREMITIES: No cyanosis, clubbing, or pedal edema. NEUROLOGICAL: Gross neurological examination did not reveal any focal deficits. SKIN: No rashes. As mentioned in the HPI there is a small slit on a healed scar on patient's lower back with evidence of purulent brown drainage. Assessment and plan -Nausea vomiting diarrhea: Probably gastroenteritis or gastritis patient will be started on IV fluids, symptoms have improved at this time. -Acute renal failure baseline creatinine is normal at baseline few months ago. Patient will be started and continued on IV fluids. Renal function has normalized. -Severe anemia unknown whether patient has acute blood loss clinically patient denies any acute blood loss symptoms, patient has elevated MCV B12 levels were obtained oncology evaluated the patient patient does have pancytopenia. His blood counts are normalizing. -Pancytopenia and macrocytosis his B12 level is WNL. -Nonhealing ulceration to the sacral region where he has had prior pilonoidal cyst surgery with concern for fistua. General surgery consulted and local wound care in place with absorptive silver. Patient will be undergoing a CT scan of the sacrum today. -Anxiety and depression -Adrenal insufficiency increasing the dose of hydrocortisone to cope up with the hospitalization stress. Adrenal crisis leading to petechial rash. -Patient is also on desmopressin which will be continued -Patient did not give any clear history of seizures but patient is on multiple antiseizure medications which are being resumed at this time -Chordoma: patient has had surgery and radiation in the past on chemotherapy. GI prophylaxis Full Code Plan DVT prophylaxis: Ambulation, because of severely low hemoglobin and mild throm bocytopenia holding of any pharmacological DVT prophylaxis and patient is fairly ambulatory at this time. The impression and plan of care has been dictated by Susan Hawkins, Nurse Practitioner as directed. Dr. Haydee MD I have performed a history and physical examination and medical decision making of this patient, discussed the same with the dictator, and agree with the dictators assessment and plan as written, documented as a scribe. Based on total visit time, I have performed more than 50% of this visit. Objective - Vital Signs Vital signs: Vital Signs Temp 98.6 F 03/06/24 08:10 Pulse 88 03/06/24 08:10 Resp 17 03/06/24 08:10 BP 113/53 03/06/24 08:10 Pulse Ox 98 03/06/24 08:10 FiO2 Intake & Output 03/05/24 03/06/24 03/06/24 18:59 06:59 18:59 Intake Total 700 480 354 Output Total 509 808 5029 Balance 0 -320 -721 Intake: Intake, IV Titration 700 Amount Piperacillin-Tazobactam 3 100 .375 gm In Sodium Chloride 0.9% 100 ml @ 25 mls/hr IVPB Q8H [facility] Rx#: [id number] Sodium Chloride 0.9% 1, 600 000 ml @ 100 mls/hr IV . Q10H [facility] Rx#:[id number] Oral 480 354 Output: Urine 416 222 2852 Other: Voiding Method Urinal Toilet Urinal - Labs CBC & Chem 7: 03/06/24 09:33 03/05/24 09:37 Labs: Abnormal Lab Results - Last 24 Hours (Table) 03/03/24 03/04/24 03/05/24 Range/Units 23:55 12:02 09:37 RBC (4.30-5.90) m/uL Hgb (13.0-17.5) gm/dL Hct (39.0-53.0) % MCV (80.0-100.0) fL RDW (11.5-15.5) % Lupus Anticoag aPTT 50 H (<43) Sec(s) Lupus Anticoag PTT Mix 45 H (<43) Sec(s) Lupus Hexagonal Phase Positive A (Negative) Albumin (PEP) 2.95 L (3.80-4.90) g/dL Dmppc-9-Avnovbuse 0.49 H (0.10-0.40) g/dL Lamotrigine 1.1 L (2.0-15.0) ug/mL 03/06/24 Range/Units 09:33 RBC 3.10 L (4.30-5.90) m/uL Hgb 10.1 L (13.0-17.5) gm/dL Hct 31.6 L (39.0-53.0) % MCV 102.0 H (80.0-100.0) fL RDW 16.8 H (11.5-15.5) % Lupus Anticoag aPTT (<43) Sec(s) Lupus Anticoag PTT Mix (<43) Sec(s) Lupus Hexagonal Phase (Negative) Albumin (PEP) (3.80-4.90) g/dL Hgukx-2-Fyqqyqbvg (0.10-0.40) g/dL Lamotrigine (2.0-15.0) ug/mL Microbiology - Last 24 Hours (Table) 03/04/24 22:01 Blood Culture - Preliminary Blood 03/04/24 18:19 Gram Stain - Preliminary Buttock Wound Culture - Preliminary Strep A Gram Neg Bacilli Assessment and Plan Time with Patient: Less than 30
--- NOTE | 2024-03-06 14:13 | P.PN ---
Subjective Progress Note Date: 03/06/24 CHIEF COMPLAINT: Sacral ulcer HISTORY OF PRESENT ILLNESS: Patient continues to have purulent drainage from the sacral ulcer. History of multiple pilonidal cysts with multiple surgeries. Afebrile. WBC 4.6 hemoglobin 10.1 platelets 188 PHYSICAL EXAM: VITAL SIGNS: Reviewed. GENERAL: Well-developed in no acute distress. ABDOMEN: Soft. Nondistended. Nontender. NEUROLOGIC: Alert and oriented. Cranial nerves II through XII grossly intact. ASSESSMENT: 1. Sacral ulcer with purulent drainage 2. History of pilonidal cyst with multiple surgeries PLAN: -Patient scheduled for incision and drainage of sacral ulcer -Follow-up on CT scan ordered by infectious disease -Continue antibiotics -Continue local wound care -N.p.o. after midnight Physician Envelope Machine Adjuster note has been reviewed by physician. Signing provider agrees with the documented findings, assessment, and plan of care. Objective - Vital Signs Vital signs: Vital Signs Temp 98.6 F 03/06/24 08:10 Pulse 88 03/06/24 08:10 Resp 17 03/06/24 08:10 BP 113/53 03/06/24 08:10 Pulse Ox 98 03/06/24 08:10 FiO2 Intake & Output 03/05/24 03/06/24 03/06/24 18:59 06:59 18:59 Intake Total 700 480 354 Output Total 900 537 8561 Balance 0 -320 -721 Intake: Intake, IV Titration 700 Amount Piperacillin-Tazobactam 3 100 .375 gm In Sodium Chloride 0.9% 100 ml @ 25 mls/hr IVPB Q8H [facility] Rx#: [id number] Sodium Chloride 0.9% 1, 600 000 ml @ 100 mls/hr IV . Q10H [facility] Rx#:[id number] Oral 480 354 Output: Urine 170 721 2904 Other: Voiding Method Urinal Toilet Urinal - Labs CBC & Chem 7: 03/06/24 09:33 03/05/24 09:37 Labs: Abnormal Lab Results - Last 24 Hours (Table) 03/03/24 03/04/24 03/05/24 Range/Units 23:55 12:02 09:37 RBC (4.30-5.90) m/uL Hgb (13.0-17.5) gm/dL Hct (39.0-53.0) % MCV (80.0-100.0) fL RDW (11.5-15.5) % Lupus Anticoag aPTT 50 H (<43) Sec(s) Lupus Anticoag PTT Mix 45 H (<43) Sec(s) Lupus Hexagonal Phase Positive A (Negative) Albumin (PEP) 2.95 L (3.80-4.90) g/dL Xyywh-8-Bnbqnyokr 0.49 H (0.10-0.40) g/dL Lamotrigine 1.1 L (2.0-15.0) ug/mL 03/06/24 Range/Units 09:33 RBC 3.10 L (4.30-5.90) m/uL Hgb 10.1 L (13.0-17.5) gm/dL Hct 31.6 L (39.0-53.0) % MCV 102.0 H (80.0-100.0) fL RDW 16.8 H (11.5-15.5) % Lupus Anticoag aPTT (<43) Sec(s) Lupus Anticoag PTT Mix (<43) Sec(s) Lupus Hexagonal Phase (Negative) Albumin (PEP) (3.80-4.90) g/dL Munzr-4-Eofejnrdu (0.10-0.40) g/dL Lamotrigine (2.0-15.0) ug/mL Microbiology - Last 24 Hours (Table) 03/04/24 22:01 Blood Culture - Preliminary Blood 03/04/24 18:19 Gram Stain - Preliminary Buttock Wound Culture - Preliminary Strep A Gram Neg Bacilli
[2024-03-06 20:47] LABS: Glucose,Whole Blood 118 mg/dL (70-110)
[2024-03-07 06:04] LABS: Glucose,Whole Blood 109 mg/dL (70-110)
[2024-03-07 11:05] LABS: Anisocytosis Slight; Basophils % (A) 0 %; Eosinophils # (A) 0.1 k/uL (0-0.7); Eosinophils % (A) 1 %; HCT 34.4 % (39.0-53.0); HGB 10.9 gm/dL (13.0-17.5); Hypochromasia Slight; Lymphocytes # (A) 1.2 k/uL (1.0-4.8); Lymphocytes % (A) 26 %; MCH 32.9 pg (25.0-35.0); MCHC 31.6 g/dL (31.0-37.0); MCV 104.1 fL (80.0-100.0); Macrocytosis Moderate; Mean Platelet Volume 7.9; Monocytes # (A) 0.2 k/uL (0-1.0); Monocytes % (A) 4 %; Neutrophils # (A) 3.2 k/uL (1.3-7.7); Neutrophils % (A) 68 %; Platelet Count 225 k/uL (150-450); Poikilocytosis Slight; RBC 3.31 m/uL (4.30-5.90); RDW 16.5 % (11.5-15.5); WBC 4.7 k/uL (3.8-10.6)
[2024-03-07 11:24] LABS: African American GFR (CKD) >90 (>60 ml/min/1.73 sqM); Anion Gap 7 mmol/L; Blood Urea Nitrogen 12 mg/dL (9-20); Calcium 8.7 mg/dL (8.4-10.2); Carbon Dioxide 23 mmol/L (22-30); Chloride 111 mmol/L (98-107); Glucose 86 mg/dL (74-99); Non-African American GFR(CKD) >90 (>60 ml/min/1.73 sqM); Potassium 3.5 mmol/L (3.5-5.1); Sodium 141 mmol/L (137-145)
[2024-03-07 12:04] LABS: Glucose,Whole Blood 108 mg/dL (70-110)
--- NOTE | 2024-03-07 14:20 | P.PN ---
Subjective Progress Note Date: 03/07/24 43-year-old male with history of chordoma of the brain, slow-growing tumor and is on oral chemotherapy on daily basis came in with complaints of nausea vomiting diarrhea without any blood in the stools, hematemesis or dark stools. Patient had a significantly low hemoglobin of around 6.2 on admission patient previous hemoglobin was 12 few months ago patient has macrocytic anemia. Patient patient also has pancytopenia. B12 and multiple other tests were ordered by hematology who evaluated the patient. Patient also has a renal insufficiency for which patient takes 10 mg hydrocortisone twice a day dose of which is being increased and now as patient is hospitalized. Patient had any fever chills patient denies any recent antibiotic use. Patient denies any flulike symptoms. 03/05/2024 This is a pleasant patient who was evaluated in follow-up on the medical floor. Patient has no longer complaints of nausea vomiting or diarrhea at this time. There is concern that this pilonidal cyst that has had multiple I&D's and surgery on is infected. On palpation there is evidence of brown colored purulent discharge and concern for a fistula and general surgery has been consulted for evaluation. This was examined at the bedside with wound care. Patient continues on IV Zosyn at this time. Blood cultures are currently pending and negative so far. Additionally IV Solu-Cortef has been increased in dosage there is concern for an adrenal crisis leading to a petechial rash. Hematology is following al josh for this. Patient's repeat blood work today reveals a white blood cell count of 6.9, hemoglobin 10.6, MCV 100.4. His renal function has normalized with a BUN of 18 and a creatinine of 0.91. His TSH comes back low at less than 0.015 and a normal free T4 we are recommending to decrease his dose of levothyroxine to 100 mcg daily because of this. His iron studies do not suggest any iron deficiency. Varicella not detected and his hepatitis panel and HIV panel are nonreactive. At this time is afebrile he is on room air. 03/06/2024 Patient evaluated in follow up today. No acute complaints overnight. Continues with petichial rash. Surgery recommending no surgical intervention at this time for the sacral wound. Cultures so far showing Strep A and gram negative bacilli. Continues on IV zosyn. ID followoing closely. Hematology following. 03/07/2024 Is evaluated today in follow-up no acute complaints overnight he continues to be n.p.o. pending I&D of his left sacral wound. Surgical cultures will be collected. Patient continues on antibiotics in the form of IV Zosyn at this time. Has been resumed on his droxidopa and improvement in his blood pressure. His blood counts are also improving his white blood cell count is 4.7, hemoglobin 10.9, platelet count of 225. Review of Systems Constitutional: Denied any fatigue denied any fever. Cardio vascular: denied any chest pain, palpitations Gastrointestinal: denied any nausea, vomiting, diarrhea Pulmonary: Denied any shortness of breath cough Neurologic denied any new focal deficits All inpatient medications were reviewed and appropriate changes in these medications as dictated in the interval history and assessment and plan. PHYSICAL EXAMINATION: GENERAL: The patient is alert and oriented x3, not in any acute distress. Well developed, well nourished. HEENT: Pupils are round an d equally reacting to light. EOMI. No scleral icterus. Does have conjunctival pallor. Normocephalic, atraumatic. No pharyngeal erythema. No thyromegaly. CARDIOVASCULAR: S1 and S2 present. No murmurs, rubs, or gallops. PULMONARY: Chest is clear to auscultation, no wheezing or crackles. ABDOMEN: Soft, nontender, nondistended, normoactive bowel sounds. No palpable organomegaly. MUSCULOSKELETAL: No joint swelling or deformity. EXTREMITIES: No cyanosis, clubbing, or pedal edema. NEUROLOGICAL: Gross neurological examination did not reveal any focal deficits. SKIN: No rashes. As mentioned in the HPI there is a small slit on a healed scar on patient's lower back with evidence of purulent brown drainage. Assessment and plan -Nausea vomiting diarrhea: Probably gastroenteritis or gastritis patient will be started on IV fluids, symptoms have improved at this time. -Acute renal failure baseline creatinine is normal at baseline few months ago. Patient will be started and continued on IV fluids. Renal function has normalized. -Severe anemia unknown whether patient has acute blood loss clinically patient denies any acute blood loss symptoms, patient has elevated MCV B12 levels were obtained oncology evaluated the patient patient does have pancytopenia. His blood counts are normalizing. -Pancytopenia and macrocytosis his B12 level is WNL. -Nonhealing ulceration to the sacral region where he has had prior pilonoidal cy st surgery with concern for fistua. General surgery consulted and local wound care in place with absorptive silver. Patient will be undergoing a CT scan of the sacrum today. -Anxiety and depression -Adrenal insufficiency increasing the dose of hydrocortisone to cope up with the hospitalization stress. Adrenal crisis leading to petechial rash. -Patient is also on desmopressin which will be continued -Patient did not give any clear history of seizures but patient is on multiple antiseizure medications which are being resumed at this time -Chordoma: patient has had surgery and radiation in the past on chemotherapy. GI prophylaxis Full Code Plan DVT prophylaxis: Ambulation, because of severely low hemoglobin and mild thrombocytopenia holding of any pharmacological DVT prophylaxis and patient is fairly ambulatory at this time. The impression and plan of care has been dictated by Susan Hawkins, Nurse Practitioner as directed. Dr. Haydee MD I have performed a history and physical examination and medical decision making of this patient, discussed the same with the dictator, and agree with the dictators assessment and plan as written, documented as a scribe. Based on total visit time, I have performed more than 50% of this visit. Objective - Vital Signs Vital signs: Vital Signs Temp 98.4 F 03/07/24 08:00 Pulse 79 03/07/24 08:00 Resp 17 03/07/24 08:00 BP 104/39 03/07/24 08:00 Pulse Ox 99 03/07/24 08:00 FiO2 Intake & Output 03/06/24 03/07/24 03/07/24 18:59 06:59 18:59 Intake Total 590 120 Output Total 1075 2300 Balance -485 -2180 Intake: Oral 590 120 Output: Urine 1075 2300 Other: Voiding Method Toilet Toilet Toilet Urinal Urinal Urinal # Voids 2 - Labs CBC & Chem 7: 03/07/24 09:08 03/07/24 09:08 Labs: Abnormal Lab Results - Last 24 Hours (Table) 03/06/24 03/07/24 03/07/24 Range/Units 20:45 09:08 09:08 RBC 3.31 L (4.30-5.90) m/uL Hgb 10.9 L (13.0-17.5) gm/dL Hct 34.4 L (39.0-53.0) % MCV 104.1 H (80.0-100.0) fL RDW 16.5 H (11.5-15.5) % Chloride 111 H (98-107) mmol/L POC Glucose (mg/dL) 118 H (70-110) mg/dL Microbiology - Last 24 Hours (Table) 03/04/24 22:01 Blood Culture - Preliminary Blood 03/04/24 18:19 Anaerobic Culture - Final Buttock Bacteroides thetaiotaomicron 03/04/24 18:19 Gram Stain - Preliminary Buttock Wound Culture - Preliminary Strep A Escherichia coli Assessment and Plan Time with Patient: Less than 30
[2024-03-07] MEDS: LACTATED RINGERS 1,000 ML IV ONE (14:43)
[2024-03-07] MEDS: ONDANSETRON 4 MG/2 ML VIAL IVP ONE (14:56)
[2024-03-07] MEDS: DEXAMETHASONE SOD PHOSPHATE 4 MG/ML 1 ML VIAL IV ONE (14:58)
[2024-03-07 15:09] LABS: Glucose,Whole Blood 75 mg/dL (70-110)
[2024-03-07] MEDS: HEPARIN SODIUM,PORCINE 5,000 UNIT/ML 1 ML VIAL SQ ONE (15:47)
[2024-03-07] MEDS ORDERED: PROPOFOL 10 MG/ML 20 ML VIAL IV ONE (15:52)
[2024-03-07] MEDS ORDERED: MIDAZOLAM 2 MG/2 ML VIAL ONE (15:52)
[2024-03-07] MEDS ORDERED: LIDOCAINE 1% INJ 10MG/ML (20 ML MDV) ONE (15:52)
[2024-03-07] MEDS: SODIUM CHLORIDE 0.9% 50 ML with ceFAZolin 2,000 MG IV ONE (15:52)
[2024-03-07] MEDS ORDERED: HEPARIN SODIUM,PORCINE 5,000 UNIT/ML 1 ML VIAL ONE (15:52)
[2024-03-07] MEDS ORDERED: SUCCINYLCHOLINE CHLORIDE 200 MG/10 ML VIAL IV ONE (15:52)
[2024-03-07] MEDS ORDERED: HYDROCORTISONE SUCCINATE 100 MG/2 ML VIAL ONE (15:52)
[2024-03-07] MEDS ORDERED: fentaNYL (PF) 50 MCG/ML 2 ML AMP ONE (15:52)
[2024-03-07] MEDS: LIDOCAINE 1%-EPI 1:100,000 20 ML VIAL SQ ONE (16:13)
--- NOTE | 2024-03-07 16:20 | P.OP ---
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 He received general endotracheal tube anesthesia. The patient was then placed in the lateral position. His right buttock was prepped and draped usual fashion. The wound was probed. 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 The fistula did not involve the anus. However it exited the skin approximately 4 cm from the anus. This point the subcutaneous tissue was unroofed over the fistula tract. The abscess cavity was drained. The wound was then packed with wet-to-dry Kerlix dressing. Patient top she will. He was sent to recovery room in stable condition.
--- NOTE | 2024-03-07 16:32 | P.PN ---
Subjective Progress Note Date: 03/06/24 Principal diagnosis: Reason for follow-up is infected sacral wound Patient is a 43-year male with multiple comorbidities including PTSD anxiety intracranial trauma s/p surgery and recently did have surgery for pilonidal cyst presenting to the hospital complaining of nausea vomiting as well as diarrhea, patient was noticed to have drainage from his sacral wound probably this consultation. On today's visit that is 03/06/2024, Patient is afebrile patient is currently on room air and denies having any shortness of breath, the patient denies any chest pain or cough, the patient denies any nausea vomiting did not have any abdominal pain and no diarrhea denies any worsening pain to the sacral area Patient white count is 4.6 Objective - Vital Signs Vital signs: Vital Signs Temp 98.6 F 03/06/24 08:10 Pulse 88 03/06/24 08:10 Resp 17 03/06/24 08:10 BP 113/53 03/06/24 08:10 Pulse Ox 98 03/06/24 08:10 FiO2 Intake & Output 03/05/24 03/06/24 03/06/24 18:59 06:59 18:59 Intake Total 700 480 236 Output Total 700 800 475 Balance 0 -320 -239 Intake: Intake, IV Titration 700 Amount Piperacillin-Tazobactam 3 100 .375 gm In Sodium Chloride 0.9% 100 ml @ 25 mls/hr IVPB Q8H [facility] Rx#: [id number] Sodium Chloride 0.9% 1, 600 000 ml @ 100 mls/hr IV . Q10H [facility] Rx#:[id number] Oral 480 236 Output: Urine 700 800 475 Other: Voiding Method Urinal Toilet Urinal - Exam GENERAL DESCRIPTION: Middle-age male lying in bed in no distress RESPIRATORY SYSTEM: Unlabored breathing , decreased breath sounds at bases HEART: S1 S2 regular rate and rhythm , ABDOMEN: Soft , no tenderness EXTREMITIES: No edema feet - Labs CBC & Chem 7: 03/07/24 09:08 03/07/24 09:08 Labs: Abnormal Lab Results - Last 24 Hours (Table) 03/03/24 03/04/24 03/06/24 Range/Units 23:55 12:02 09:33 RBC 3.10 L (4.30-5.90) m/uL Hgb 10.1 L (13.0-17.5) gm/dL Hct 31.6 L (39.0-53.0) % MCV 102.0 H (80.0-100.0) fL RDW 16.8 H (11.5-15.5) % Albumin (PEP) 2.95 L (3.80-4.90) g/dL [id number] 0.49 H (0.10-0.40) g/dL Lamotrigine 1.1 L (2.0-15.0) ug/mL Free Romney LC, Quant 4.34 H (0.33-1.94) mg/dL Free Lambda LC, Quant 3.54 H (0.57-2.63) mg/dL Microbiology - Last 24 Hours (Table) 03/04/24 22:01 Blood Culture - Preliminary Blood 03/04/24 18:19 Gram Stain - Preliminary Buttock Wound Culture - Preliminary Strep A Gram Neg Bacilli Assessment and Plan (1) Abscess Current Visit: Yes Status: Acute Code(s): L02.91 - CUTANEOUS ABSCESS, UNSPECIFIED SNOMED Code(s): 335737088 (2) Non-pressure chronic ulcer of skin of other sites with fat layer exposed Current Visit: Yes Status: Acute Code(s): L98.492 - NON-PRS CHRONIC ULCER OF SKIN OF SITES W FAT LAYER EXPOSED SNOMED Code(s): 58184424 Plan: 1patient presented to hospital with acute nausea vomiting and diarrhea in this patient who recently did have a pilonidal cyst surgery patient noticed to have some drainage from the area concerning for possible infected cyst likely from enteric gram-negative 2-we will obtain blood cultures local culture has been obtained 3-patient has refused CT of the pelvis wants to be sedated for it, we will wait for surgical rate drainage that will determine the depth of this infection 4-patient to continue Zosyn and monitor clinical course closely Dictation was produced using [employer] dictation software. please excuse any grammatical, word or spelling errors. Time with Patient: Less than 30
--- NOTE | 2024-03-07 16:33 | P.PN ---
Subjective Progress Note Date: 03/07/24 Principal diagnosis: Reason for follow-up is infected sacral wound Patient is a 43-year male with multiple comorbidities including PTSD anxiety intracranial trauma s/p surgery and recently did have surgery for pilonidal cyst presenting to the hospital complaining of nausea vomiting as well as diarrhea, patient was noticed to have drainage from his sacral wound probably this consultation. On today's visit that is 03/07/2024, patient has been afebrile, patient is erin athing comfortably and is currently on room air, patient denies having any significant cough no chest pain shortness of breath, patient denies nausea vomiting or diarrhea and no abdominal pain, patient denies any worsening pain to the sacral wound area. Patient white count is 4.7 creatinine 0.86 cultures are growing bacteroids and E. coli as well as strep Objective - Vital Signs Vital signs: Vital Signs Temp 98.7 F 03/07/24 12:15 Pulse 78 03/07/24 14:00 Resp 17 03/07/24 14:00 BP 137/81 03/07/24 12:15 Pulse Ox 99 03/07/24 12:15 FiO2 Intake & Output 03/06/24 03/07/24 03/07/24 18:59 06:59 18:59 Intake Total 590 120 Output Total 1075 2300 Balance -485 -2180 Intake: Oral 590 120 Output: Urine 1075 2300 Other: Voiding Method Toilet Toilet Toilet Urinal Urinal Urinal # Voids 2 - Exam GENERAL DESCRIPTION: Middle-age male lying in bed in no distress RESPIRATORY SYSTEM: Unlabored breathing , decreased breath sounds at bases HEART: S1 S2 regular rate and rhythm , ABDOMEN: Soft , no tenderness EXTREMITIES: No edema feet - Labs CBC & Chem 7: 03/07/24 09:08 03/07/24 09:08 Labs: Abnormal Lab Results - Last 24 Hours (Table) 03/06/24 03/07/24 03/07/24 Range/Units 20:45 09:08 09:08 RBC 3.31 L (4.30-5.90) m/uL Hgb 10.9 L (13.0-17.5) gm/dL Hct 34.4 L (39.0-53.0) % MCV 104.1 H (80.0-100.0) fL RDW 16.5 H (11.5-15.5) % Chloride 111 H (98-107) mmol/L POC Glucose (mg/dL) 118 H (70-110) mg/dL Microbiology - Last 24 Hours (Table) 03/04/24 22:01 Blood Culture - Preliminary Blood 03/04/24 18:19 Anaerobic Culture - Final Buttock Bacteroides thetaiotaomicron 03/04/24 18:19 Gram Stain - Preliminary Buttock Wound Culture - Preliminary Strep A Escherichia coli Assessment and Plan (1) Abscess Current Visit: Yes Status: Acute Code(s): L02.91 - CUTANEOUS ABSCESS, UNSPECIFIED SNOMED Code(s): 006953377 (2) Non-pressure chronic ulcer of skin of other sites with fat layer exposed Current Visit: Yes Status: Acute Code(s): L98.492 - NON-PRS CHRONIC ULCER OF SKIN OF SITES W FAT LAYER EXPOSED SNOMED Code(s): 66801208 Plan: 1patient presented to hospital with acute nausea vomiting and diarrhea in this patient who recently did have a pilonidal cyst surgery patient noticed to have some drainage from the area concerning for possible infected cyst likely from enteric gram-negative 2-we will obtain blood cultures local culture has been obtained 3-patient has refused CT of the pelvis wants to be sedated for it, we will wait for surgical rate drainage that will determine the depth of this infection which is scheduled for this afternoon 4-patient initial culture did grow strep E. coli and Bacteroides patient is covered with the Zosyn Dictation was produced using [employer] dictation software. please excuse any grammatical, word or spelling errors. Time with Patient: Less than 30
[2024-03-07] MEDS: POTASSIUM CHLORIDE ER 20 MEQ TAB.ER PO STA (17:42)
[2024-03-07 20:14] LABS: Glucose,Whole Blood 134 mg/dL (70-110)
--- NOTE | 2024-03-07 21:08 | P.PN ---
Subjective Progress Note Date: 03/07/24 Principal diagnosis: pancytopenia In f/u pt is cleaning up for surgery to clean his infection incision from pilonidial cyst removal. No new c/o today. Objective - Vital Signs Vital signs: Vital Signs Temp 97.4 F L 03/07/24 14:45 Pulse 83 03/07/24 14:45 Resp 18 03/07/24 14:45 BP 129/60 03/07/24 14:45 Pulse Ox 97 03/07/24 14:45 FiO2 Intake & Output 03/06/24 03/07/24 03/07/24 18:59 06:59 18:59 Intake Total 590 120 Output Total 1075 2300 Balance -485 -2180 Intake: Oral 590 120 Output: Urine 1075 2300 Other: Voiding Method Toilet Toilet Toilet Urinal Urinal Urinal # Voids 2 - Constitutional General appearance: Present: average body habitus, cooperative, no acute distress - EENT Eyes: Present: anicteric sclerae, EOMI ENT: Present: hearing grossly normal - Respiratory Details: resp unlabored with ambulation - Musculoskeletal Musculoskeletal: Present: strength equal bilaterally - Psychiatric Psychiatric: Present: A&O x's 3, appropriate affect, intact judgment & insight (mild cognitive changes ) - Labs CBC & Chem 7: 03/07/24 09:08 03/07/24 09:08 Labs: Abnormal Lab Results - Last 24 Hours (Table) 03/06/24 03/07/24 03/07/24 Range/Units 20:45 09:08 09:08 RBC 3.31 L (4.30-5.90) m/uL Hgb 10.9 L (13.0-17.5) gm/dL Hct 34.4 L (39.0-53.0) % MCV 104.1 H (80.0-100.0) fL RDW 16.5 H (11.5-15.5) % Chloride 111 H (98-107) mmol/L POC Glucose (mg/dL) 118 H (70-110) mg/dL Microbiology - Last 24 Hours (Table) 03/04/24 22:01 Blood Culture - Preliminary Blood 03/04/24 18:19 Anaerobic Culture - Final Buttock Bacteroides thetaiotaomicron 03/04/24 18:19 Gram Stain - Preliminary Buttock Wound Culture - Preliminary Strep A Escherichia coli Assessment and Plan (1) Pancytopenia Current Visit: Yes Status: Acute Priority: High Code(s): D61.818 - OTHER PANCYTOPENIA SNOMED Code(s): 588798736 Plan: Pancytopenia -CBC today is normal other then mild macrocytic anemia. Pt has Hx of folate deficiency, he is being supplemented. 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 DIC labs neg. APL ab labs resulted previously were neg. Lupus anticoagulant did return positive. This will need to be confirmed by retest in about 3 months. Will send results to his Hem[facility]Onc a [facility] and at [facility] -Pancytopenia laboratory workup - iron studies(no significant deficiency), folate low supplement started (mother reports that pt folate is always low), HIV(neg), hemolysis (neg), paraproteinemia workup reports no monoclonal protein, K/L elevated with normal ratio most consistent with infection/inflammation. -Have requested stool collection-pending -Varicella PCR neg. -ID and wound care consulted. Surgery performing I&D of wound today -Transfused 1 unit PRBCs for hemoglobin of 6.2. CBC today reports Hgb 10.9. -WBC/ANC normal -Cont to hold abemaciclib for now -Acute changes in counts multifactorial including medications and cancer treatment exacerbated by acute infection. Pending cultures and workup. Continue monitoring CBC while inpatient. -No additional work up at this time. Will cont to monitor counts Received information from [facility] sarcoma clinic. In early 2015 patient developed altered vision while serving in the in [employer]. Scan showed concerns for malignancy. In April 2016 he had a near total gross transsphenoidal resection of chordoma at [facility]. 08/16/2016 through 05/31/2016 he had 45 Gy of proton radiation to clival chordoma with 30 Gy chordoma boost performed at [facility] for proton therapy in [facility]. 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 He was not able to walk for months, became verbally aggressive and did not remember things for 2 years. He came back to [place] and has been on surveillance with annual MRIs - seen at [facility] and [facility]. 10/28/2020 MRI of the brain showing heterogenous enhancement measuring 29 x 26 x 53 mm. Interval growth demonstrated compared to multiple prior examinations with increased areas of enhancement and overall bulk. Progressive inferior extension along the lateral aspect of the clivus noted. January 2021 he had Stealth guided expanded endonasal approach for resection. Debulking was achieved removing all of the soft tumor but the fibrous tumor remained. 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 01/22/2021 MRI of the brain postoperative changes endonasal approach resection of the clival mass with graft placement. Suspicion for residual tumor in the cavernous sinus/clivus. Unchanged slight dural enhancement overlying the bilateral temporal lobe. Interval increase in size of right parietal scalp enhancing lesion, questioning infectious versus inflammatory a possible neoplastic process. 10/13/2021 mild interval increase in the size of the left sellar component, also bulging more into the prepontine cistern. The left clival component was stable. At that time patient was started on the TAPUR clinical trial with abemaciclib CDK 4/6 inhibitor. He has been on since and done very well. 06/21/2023 he was admitted to the OR for infected pilon dialysis cyst flap. He was last seen at [facility] on 02/21/24. His CBC was normal, Hgb was 11.7. On review of the note patient has been admitted for recurrent infection of the pilonidal cyst. He has had a wound VAC in the past.
[2024-03-08 05:49] LABS: Glucose,Whole Blood 129 mg/dL (70-110)
--- NOTE | 2024-03-08 08:57 | P.PN ---
Subjective Progress Note Date: 03/08/24 the patient [place] stable. He is status post debridement of wound the wound. The patient will continue have local wound care performed. Objective - Vital Signs Vital signs: Vital Signs Temp 98.0 F 03/07/24 20:00 Pulse 89 03/08/24 08:29 Resp 20 03/08/24 08:29 BP 136/65 03/08/24 08:29 Pulse Ox 100 03/08/24 08:29 FiO2 Intake & Output 03/07/24 03/08/24 03/08/24 18:59 06:59 18:59 Intake Total 1490 Output Total 405 300 950 Balance 1085 -300 -950 Intake: IV 450 Intake, IV Titration 100 Amount Piperacillin-Tazobactam 3 100 .375 gm In Sodium Chloride 0.9% 100 ml @ 25 mls/hr IVPB Q8H [facility] Rx#: [id number] Oral 940 Output: Urine 400 300 950 Estimated Blood Loss 5 Other: Voiding Method Toilet Toilet Urinal Urinal # Bowel Movements 3 - Labs CBC & Chem 7: 03/07/24 09:08 03/07/24 09:08 Labs: Abnormal Lab Results - Last 24 Hours (Table) 03/07/24 03/07/24 03/07/24 Range/Units 09:08 09:08 20:08 RBC 3.31 L (4.30-5.90) m/uL Hgb 10.9 L (13.0-17.5) gm/dL Hct 34.4 L (39.0-53.0) % MCV 104.1 H (80.0-100.0) fL RDW 16.5 H (11.5-15.5) % Chloride 111 H (98-107) mmol/L POC Glucose (mg/dL) 134 H (70-110) mg/dL 03/08/24 Range/Units 05:48 RBC (4.30-5.90) m/uL Hgb (13.0-17.5) gm/dL Hct (39.0-53.0) % MCV (80.0-100.0) fL RDW (11.5-15.5) % Chloride (98-107) mmol/L POC Glucose (mg/dL) 129 H (70-110) mg/dL Microbiology - Last 24 Hours (Table) 05/20/24 22:01 Blood Culture - Preliminary Blood 03/04/24 18:19 Gram Stain - Preliminary Buttock Wound Culture - Preliminary Strep A Escherichia coli Presumptive MRSA
[2024-03-08 09:11] LABS: Anisocytosis Slight; HCT 29.1 % (39.0-53.0); HGB 9.5 gm/dL (13.0-17.5); MCH 32.7 pg (25.0-35.0); MCHC 32.7 g/dL (31.0-37.0); MCV 100.1 fL (80.0-100.0); Macrocytosis Slight; Mean Platelet Volume 8.3; Platelet Count 178 k/uL (150-450); Poikilocytosis Slight; RBC 2.91 m/uL (4.30-5.90); RDW 16.8 % (11.5-15.5); WBC 5.9 k/uL (3.8-10.6)
[2024-03-08 09:28] LABS: African American GFR (CKD) >90 (>60 ml/min/1.73 sqM); Anion Gap 3 mmol/L; Blood Urea Nitrogen 14 mg/dL (9-20); Calcium 8.5 mg/dL (8.4-10.2); Carbon Dioxide 27 mmol/L (22-30); Chloride 109 mmol/L (98-107); Glucose 114 mg/dL (74-99); Non-African American GFR(CKD) >90 (>60 ml/min/1.73 sqM); Potassium 3.4 mmol/L (3.5-5.1); Sodium 139 mmol/L (137-145)
[2024-03-08] MEDS ORDERED: VANCOMYCIN IV PER PHARMACY 1 EACH MISC MISCELLANE PRN (11:45)
[2024-03-08 11:48] LABS: Glucose,Whole Blood 120 mg/dL (70-110)
[2024-03-08 12:01] VITALS: BMI 33.3
[2024-03-08] MEDS: POTASSIUM CHLORIDE ER 20 MEQ TAB.ER PO STA (13:00)
--- NOTE | 2024-03-08 14:25 | P.PCN ---
Date of Procedure: 03/08/24 Preoperative Diagnosis: Gluteal abscess, fistula need for IV antibiotics 15 to 30 days Postoperative Diagnosis: Same Procedure(s) Performed: Left upper extremity basilic vein PICC placement under ultrasound and fluoroscopic guidance Anesthesia: local Surgeon: Artemio Daigle Pathology: none sent Condition: stable Disposition: floor Description of Procedure: After written and informed consent was obtained the patient and all risks, benefits and competitions were described the patient was brought to the Sales Consult[employer] Residential Manager and laid in a supine position with his left arm outstretched on an armboard. The area of the left arm was prepped and draped in usual sterile fashion. Timeout was performed in normal fashion. Utilizing ultrasound the basilic vein was visualized and shown to be compressible without any visible thrombus. Under ultrasound guidance the basilic vein was then cannulated with a micropuncture needle and wire was placed under direct visualization of fluoroscopy. Introducer sheath was then placed. The catheter was measured and cut to the appropriate length which was 52 cm. The catheter was then guided through the breakaway sheath and the sheath was removed with good positioning was visualized under fluoroscopy. The catheter was pulled and flushed easily. It was then secured in place in normal fashion. Patient tolerated the procedure well was sent back to his room for recovery.
[2024-03-08] MEDS: VANCOMYCIN 1,750 MG in SODIUM CHLORIDE 0.9% 500 ML 500 ML IVPB SCH (14:42)
--- NOTE | 2024-03-08 15:18 | IR ---
EXAMINATION TYPE: IR cvc insert >=5 years Intraoperative/procedural fluoroscopic services were provid ed. CLINICAL INDICATION:Male, 43 years old with history of ABX, 52cm, L BASILIC, 0.7 min FL, 2.2745 Gycm2 ; , [facility] Total fluoroscopy time is 0.7 min. DAP: 2.2745 Gycm2 Please see the operative/procedural note for further details.
--- NOTE | 2024-03-08 15:21 | P.PN ---
Subjective Progress Note Date: 03/08/24 Principal diagnosis: Reason for follow-up is infected sacral wound Patient is a 43-year male with multiple comorbidities including PTSD anxiety intracranial trauma s/p surgery and recently did have surgery for pilonidal cyst presenting to the hospital complaining of nausea vomiting as well as diarrhea, patient was noticed to have drainage from his sacral wound probably this consultation. On today's visit that is 03/08/2024,the patient denies any fever or any chills, patient is breathing comfortably on room air, the patient denies chest pain shortness of breath and no significant cough, patient denies abdominal pain, no nausea vomiting or diarrhea. Patient denies any worsening pain to the sacral wound area. Patient white count is 5.8, creatinine 0.91 local culture now growing presumptive MRSA in addition to E. coli strep and Bacteroides Objective - Vital Signs Vital signs: Vital Signs Temp 98.0 F 03/07/24 20:00 Pulse 89 03/08/24 08:29 Resp 20 03/08/24 08:29 BP 136/65 03/08/24 08:29 Pulse Ox 100 03/08/24 08:29 FiO2 Intake & Output 03/07/24 03/08/24 03/08/24 18:59 06:59 18:59 Intake Total 1490 360 Output Total 405 300 950 Balance 1085 -300 -590 Weight 117.934 kg Intake: IV 450 Intake, IV Titration 100 Amount Piperacillin-Tazobactam 3 100 .375 gm In Sodium Chloride 0.9% 100 ml @ 25 mls/hr IVPB Q8H [facility] Rx#: [id number] Oral 940 360 Output: Urine 400 300 950 Estimated Blood Loss 5 Other: Voiding Method Toilet Toilet Toilet Urinal Urinal Urinal # Bowel Movements 3 - Exam GENERAL DESCRIPTION: Middle-age male lying in bed in no distress RESPIRATORY SYSTEM: Unlabored breathing , decreased breath sounds at bases HEART: S1 S2 regular rate and rhythm , ABDOMEN: Soft , no tenderness Patient did have a deep sacral wound postdebridement however the wound was not palpable EXTREMITIES: No edema feet - Labs CBC & Chem 7: 03/08/24 08:21 03/08/24 08:21 Labs: Abnormal Lab Results - Last 24 Hours (Table) 03/07/24 03/08/24 03/08/24 Range/Units 20:08 05:48 08:21 RBC 2.91 L (4.30-5.90) m/uL Hgb 9.5 L (13.0-17.5) gm/dL Hct 29.1 L (39.0-53.0) % MCV 100.1 H (80.0-100.0) fL RDW 16.8 H (11.5-15.5) % Potassium (3.5-5.1) mmol/L Chloride (98-107) mmol/L Glucose (74-99) mg/dL POC Glucose (mg/dL) 134 H 129 H (70-110) mg/dL 03/08/24 Range/Units 08:21 RBC (4.30-5.90) m/uL Hgb (13.0-17.5) gm/dL Hct (39.0-53.0) % MCV (80.0-100.0) fL RDW (11.5-15.5) % Potassium 3.4 L (3.5-5.1) mmol/L Chloride 109 H (98-107) mmol/L Glucose 114 H (74-99) mg/dL POC Glucose (mg/dL) (70-110) mg/dL Microbiology - Last 24 Hours (Table) 03/04/24 22:01 Blood Culture - Preliminary Blood 03/04/24 18:19 Gram Stain - Preliminary Buttock Wound Culture - Preliminary Strep A Escherichia coli Presumptive MRSA Assessment and Plan (1) Abscess Current Visit: Yes Status: Acute Code(s): L02.91 - CUTANEOUS ABSCESS, UNSPECIFIED SNOMED Code(s): 141651531 (2) Non-pressure chronic ulcer of skin of other sites with fat layer exposed Current Visit: Yes Status: Acute Code(s): L98.492 - NON-PRS CHRONIC ULCER OF SKIN OF SITES W FAT LAYER EXPOSED SNOMED Code(s): 86283014 Plan: 1patient presented to hospital with acute nausea vomiting and diarrhea in this patient who recently did have a pilonidal cyst surgery patient noticed to have some drainage from the area concerning for possible infected cyst likely from enteric gram-negative 2-we will obtain blood cultures local culture currently growing E. coli strep presumptive MRSA and bacteroids 3-patient has refused CT of the pelvis wants to be sedated for it, patient is status post surgical drainage of the abscess resulting deep wound however bord ers are palpable 4-patient antibiotic will be adjusted to vancomycin Rocephin and Flagyl we will get a PICC line for outpatient antibiotic therapy Care has been discussed in detail with the mother on the phone Dictation was produced using [employer] dictation software. please excuse any grammatical, word or spelling errors. Time with Patient: Less than 30
[2024-03-08] MEDS: metroNIDAZOLE 500 MG TAB PO SCH (16:25)
[2024-03-08 16:36] LABS: Glucose,Whole Blood 88 mg/dL (70-110)
--- NOTE | 2024-03-08 17:48 | P.PN ---
Subjective Progress Note Date: 03/08/24 43-year-old male with history of chordoma of the brain, slow-growing tumor and is on oral chemotherapy on daily basis came in with complaints of nausea vomiting diarrhea without any blood in the stools, hematemesis or dark stools. Patient had a significantly low hemoglobin of around 6.2 on admission patient previous hemoglobin was 12 few months ago patient has macrocytic anemia. Patient patient also has pancytopenia. B12 and multiple other tests were ordered by hematology who evaluated the patient. Patient also has a renal insufficiency for which patient takes 10 mg hydrocortisone twice a day dose of which is being increased and now as patient is hospitalized. Patient had any fever chills patient denies any recent antibiotic use. Patient denies any flulike symptoms. Objective - Vital Signs Vital signs: Vital Signs Temp 97.8 F 03/08/24 12:00 Pulse 95 03/08/24 12:00 Resp 16 03/08/24 12:00 BP 154/64 03/08/24 12:00 Pulse Ox 99 03/08/24 12:00 FiO2 Intake & Output 03/07/24 03/08/24 03/08/24 18:59 06:59 18:59 Intake Total 1490 360 Output Total 405 300 950 Balance 1085 -300 -590 Weight 117.934 kg Intake: IV 450 Intake, IV Titration 100 Amount Piperacillin-Tazobactam 3 100 .375 gm In Sodium Chloride 0.9% 100 ml @ 25 mls/hr IVPB Q8H [facility] Rx#: [id number] Oral 940 360 Output: Urine 400 300 950 Estimated Blood Loss 5 Other: Voiding Method Toilet Toilet Toilet Urinal Urinal Urinal # Bowel Movements 3 - Exam GENERAL: The patient is alert and oriented x3, not in any acute distress. Well developed, well nourished. HEENT: Pupils are round an d equally reacting to light. EOMI. No scleral icterus. Does have conjunctival pallor. Normocephalic, atraumatic. No pharyngeal erythema. No thyromegaly. CARDIOVASCULAR: S1 and S2 present. No murmurs, rubs, or gallops. PULMONARY: Chest is clear to auscultation, no wheezing or crackles. ABDOMEN: Soft, nontender, nondistended, normoactive bowel sounds. No palpable organomegaly. MUSCULOSKELETAL: No joint swelling or deformity. EXTREMITIES: No cyanosis, clubbing, or pedal edema. NEUROLOGICAL: Gross neurological examination did not reveal any focal deficits. SKIN: No rashes. As mentioned in the HPI there is a small slit on a healed scar on patient's lower back with evidence of purulent brown drainage. - Labs CBC & Chem 7: 03/08/24 08:21 03/08/24 08:21 Labs: Abnormal Lab Results - Last 24 Hours (Table) 03/07/24 03/08/24 03/08/24 Range/Units 20:08 05:48 08:21 RBC 2.91 L (4.30-5.90) m/uL Hgb 9.5 L (13.0-17.5) gm/dL Hct 29.1 L (39.0-53.0) % MCV 100.1 H (80.0-100.0) fL RDW 16.8 H (11.5-15.5) % Potassium (3.5-5.1) mmol/L Chloride (98-107) mmol/L Glucose (74-99) mg/dL POC Glucose (mg/dL) 134 H 129 H (70-110) mg/dL 03/08/24 03/08/24 Range/Units 08:21 11:46 RBC (4.30-5.90) m/uL Hgb (13.0-17.5) gm/dL Hct (39.0-53.0) % MCV (80.0-100.0) fL RDW (11.5-15.5) % Potassium 3.4 L (3.5-5.1) mmol/L Chloride 109 H (98-107) mmol/L Glucose 114 H (74-99) mg/dL POC Glucose (mg/dL) 120 H (70-110) mg/dL Microbiology - Last 24 Hours (Table) 03/04/24 22:01 Blood Culture - Preliminary Blood 03/04/24 18:19 Gram Stain - Preliminary Buttock Wound Culture - Preliminary Strep A Escherichia coli Presumptive MRSA Assessment and Plan Assessment: -Nausea vomiting diarrhea: Probably gastroenteritis or gastritis patient will be started on IV fluids, symptoms have improved at this time. -Acute renal failure baseline creatinine is normal at baseline few months ago. Patient will be started and continued on IV fluids. Renal function has normalized. -Severe anemia unknown whether patient has acute blood loss clinically patient denies any acute blood loss symptoms, patient has elevated MCV B12 levels were obtained oncology evaluated the patient patient does have pancytopenia. His blood counts are normalizing. -Pancytopenia and macrocytosis his B12 level is WNL. -Nonhealing ulceration to the sacral region where he has had prior pilonoidal cyst surgery with concern for fistua. General surgery consulted and local wound care in place with absorptive silver. Patient will be undergoing a CT scan of the sacrum today. -Anxiety and depression -Adrenal insufficiency increasing the dose of hydrocortisone to cope up with the hospitalization stress. Adrenal crisis leading to petechial rash. -Patient is also on desmopressin which will be continued -Patient did not give any clear history of seizures but patient is on multiple antiseizure medications which are being resumed at this time -Chordoma: patient has had surgery and radiation in the past on chemotherapy. GI prophylaxis Full Code Plan DVT prophylaxis: Ambulation, because of severely low hemoglobin and mild thrombocytopenia holding of any pharmacological DVT prophylaxis and patient is fairly ambulatory at this time.
[2024-03-08 20:31] LABS: Glucose,Whole Blood 83 mg/dL (70-110)
[2024-03-09 06:31] LABS: Glucose,Whole Blood 104 mg/dL (70-110)
[2024-03-09 08:12] LABS: African American GFR (CKD) >90 (>60 ml/min/1.73 sqM); Anion Gap 3 mmol/L; Anisocytosis Slight; Basophils % (A) 1 %; Blood Urea Nitrogen 11 mg/dL (9-20); Calcium 7.9 mg/dL (8.4-10.2); Carbon Dioxide 26 mmol/L (22-30); Chloride 111 mmol/L (98-107); Eosinophils % (A) 1 %; Glucose 90 mg/dL (74-99); HCT 31.8 % (39.0-53.0); HGB 10.7 gm/dL (13.0-17.5); Lymphocytes # (A) 1.1 k/uL (1.0-4.8); Lymphocytes % (A) 22 %; MCH 33.1 pg (25.0-35.0); MCHC 33.6 g/dL (31.0-37.0); MCV 98.6 fL (80.0-100.0); Macrocytosis Slight; Mean Platelet Volume 8.6; Monocytes # (A) 0.3 k/uL (0-1.0); Monocytes % (A) 6 %; Neutrophils # (A) 3.5 k/uL (1.3-7.7); Neutrophils % (A) 69 %; Non-African American GFR(CKD) >90 (>60 ml/min/1.73 sqM); Platelet Count 200 k/uL (150-450); Poikilocytosis Slight; Potassium 3.3 mmol/L (3.5-5.1); RBC 3.23 m/uL (4.30-5.90); RDW 16.5 % (11.5-15.5); Sodium 140 mmol/L (137-145); WBC 5.1 k/uL (3.8-10.6)
[2024-03-09] MEDS: HYDROmorphone 1 MG/ML 1 ML SYRINGE IVP PRN (08:21)
[2024-03-09 11:42] LABS: Glucose,Whole Blood 139 mg/dL (70-110)
[2024-03-09] MEDS: POTASSIUM CHLORIDE ER 20 MEQ TAB.ER PO STA (12:40)
[2024-03-09] MEDS: BUPRENORPHINE 20 MCG/HR TRANSDERM SCH (12:41)
[2024-03-09] MEDS ORDERED: CALAMINE/ZINC OXIDE LOTION 177 ML BTL TOPICAL PRN (13:27)
--- NOTE | 2024-03-09 13:27 | P.PN ---
Subjective Progress Note Date: 03/09/24 Principal diagnosis: Reason for follow-up is infected sacral wound Patient is a 43-year male with multiple comorbidities including PTSD anxiety intracranial trauma s/p surgery and recently did have surgery for pilonidal cyst presenting to the hospital complaining of nausea vomiting as well as diarrhea, patient was noticed to have drainage from his sacral wound probably this consultation. On today's visit that is 03/09/2024,the patient remains to be afebrile, patient is on room air not requiring supplemental oxygen and denies any shortness of breath no chest pain or cough.Patient denies having any nausea or vomiting, no abdominal pain and no diarrhea complaining of some bleeding from his sacral wound but no worsening pain. Also have developed a rash mostly to the left half of the body left half of the body Patient white count is 5.1 creatinine 0.82 Objective - Vital Signs Vital signs: Vital Signs Temp 97.9 F 03/09/24 04:00 Pulse 66 03/09/24 04:00 Resp 16 03/09/24 04:00 BP 121/71 03/09/24 04:00 Pulse Ox 97 03/09/24 04:00 FiO2 Intake & Output 03/08/24 03/09/24 03/09/24 18:59 06:59 18:59 Intake Total 780 Output Total 1700 200 Balance -920 -200 Weight 117.934 kg Intake: Oral 780 Output: Urine 1700 200 Other: Voiding Method Toilet Toilet Urinal Urinal # Bowel Movements 1 - Exam GENERAL DESCRIPTION: Middle-age male lying in bed in no distress RESPIRATORY SYSTEM: Unlabored breathing , decreased breath sounds at bases HEART: S1 S2 regular rate and rhythm , ABDOMEN: Soft , no tenderness Sacral wound is currently dressed Did have erythematous rash mostly to the left side of the body - Labs CBC & Chem 7: 03/09/24 06:57 03/09/24 06:57 Labs: Abnormal Lab Results - Last 24 Hours (Table) 03/08/24 03/08/24 03/08/24 Range/Units 08:21 08:21 11:46 RBC 2.91 L (4.30-5.90) m/uL Hgb 9.5 L (13.0-17.5) gm/dL Hct 29.1 L (39.0-53.0) % MCV 100.1 H (80.0-100.0) fL RDW 16.8 H (11.5-15.5) % Potassium 3.4 L (3.5-5.1) mmol/L Chloride 109 H (98-107) mmol/L Glucose 114 H (74-99) mg/dL POC Glucose (mg/dL) 120 H (70-110) mg/dL Microbiology - Last 24 Hours (Table) 03/04/24 18:19 Gram Stain - Final Buttock Wound Culture - Final Methicillin resist S. aureus Strep A Escherichia coli 03/04/24 22:01 Blood Culture - Preliminary Blood Assessment and Plan (1) Abscess Current Visit: Yes Status: Acute Code(s): L02.91 - CUTANEOUS ABSCESS, UNSPECIFIED SNOMED Code(s): 691624013 (2) Non-pressure chronic ulcer of skin of other sites with fat layer exposed Current Visit: Yes Status: Acute Code(s): L98.492 - NON-PRS CHRONIC ULCER OF SKIN OF SITES W FAT LAYER EXPOSED SNOMED Code(s): 33084580 (3) Rash Current Visit: Yes Status: Acute Code(s): R21 - RASH AND OTHER NONSPECIFIC SKIN ERUPTION SNOMED Code(s): 612908442 Plan: 1patient presented to hospital with acute nausea vomiting and diarrhea in this patient who recently did have a pilonidal cyst surgery patient noticed to have some drainage from the area concerning for possible infected cyst likely from enteric gram-negative 2-we will obtain blood cultures local culture currently growing E. coli strep presumptive MRSA and bacteroids 3-patient is status post surgical drainage of the abscess no deep wound and no bone is palpable 4-patient to continue with vancomycin Rocephin and Flagyl waiting for outpatient antibiotic arrangement 5rash mostly to the left half of the body questionably contact dermatitis will apply calamine lotion Mother at the bedside questions were answered Dictation was produced using [employer] dictation software. please excuse any grammatical, word or spelling errors. Time with Patient: Less than 30
[2024-03-09] MEDS: MD COMMUNICATION TO PHARMACY 1 EACH MISC PO SCH (13:58)
--- NOTE | 2024-03-09 16:29 | P.PN ---
Subjective patient seen and evaluated bedside. Patient complains of gluteal cleft pain Objective - Vital Signs Vital signs: Vital Signs Temp 97.4 F L 03/09/24 12:38 Pulse 83 03/09/24 12:38 Resp 18 03/09/24 12:38 BP 132/74 03/09/24 12:38 Pulse Ox 100 03/09/24 12:38 FiO2 Intake & Output 03/08/24 03/09/24 03/09/24 18:59 06:59 18:59 Intake Total 780 360 Output Total 1700 200 600 Balance -920 -200 -240 Weight 117.934 kg Intake: Oral 780 360 Output: Urine 1700 200 600 Other: Voiding Method Toilet Toilet Toilet Urinal Urinal Urinal # Bowel Movements 1 - Exam general no acute distress alert and oriented 3 Cardiovascular regular rhythm Pulmonary nonlabored breathing Abdomen soft nontender nondistended no guarding rebound tenderness Gluteal cleft wound measuring roughly 7 x 5 cm with biofilm, no bleeding - Labs CBC & Chem 7: 03/09/24 06:57 03/09/24 06:57 Labs: Abnormal Lab Results - Last 24 Hours (Table) 03/09/24 03/09/24 03/09/24 Range/Units 06:57 06:57 11:40 RBC 3.23 L (4.30-5.90) m/uL Hgb 10.7 L (13.0-17.5) gm/dL Hct 31.8 L (39.0-53.0) % RDW 16.5 H (11.5-15.5) % Potassium 3.3 L (3.5-5.1) mmol/L Chloride 111 H (98-107) mmol/L POC Glucose (mg/dL) 139 H (70-110) mg/dL Calcium 7.9 L (8.4-10.2) mg/dL Microbiology - Last 24 Hours (Table) 03/04/24 18:19 Gram Stain - Final Buttock Wound Culture - Final Methicillin resist S. aureus Strep A Escherichia coli Assessment and Plan Assessment: 43-year-old male with gluteal cleft abscess Dressing was removed this a.m. with biofilm still present, recommending Dakin's solution for biofilm breakdown for the next several weeks which he can have a wound VAC for further healing. Wound does undermine Continue antibiotics per infectious disease Time with Patient: Less than 30
--- NOTE | 2024-03-09 16:54 | P.PN ---
Subjective Progress Note Date: 03/09/24 43-year-old male with history of chordoma of the brain, slow-growing tumor and is on oral chemotherapy on daily basis came in with complaints of nausea vomiting diarrhea without any blood in the stools, hematemesis or dark stools. Patient had a significantly low hemoglobin of around 6.2 on admission patient previous hemoglobin was 12 few months ago patient has macrocytic anemia. Patient patient also has pancytopenia. B12 and multiple other tests were ordered by hematology who evaluated the patient. Patient also has a renal insufficiency for which patient takes 10 mg hydrocortisone twice a day dose of which is being increased and now as patient is hospitalized. Patient had any fever chills patient denies any recent antibiotic use. Patient denies any flulike symptoms. 03/09/2024 --the patient remains to be afebrile, patient is on room air not requiring supplemental oxygen and denies any shortness of breath no chest pain or cough.Patient denies having any nausea or vomiting, no abdominal pain and no diarrhea complaining of some bleeding from his sacral wound but no worsening pain. Also have developed a rash mostly to the left half of the body left half of the body Patient white count is 5.1 creatinine 0.82 patient presented to hospital with acute nausea vomiting and diarrhea in this patient who recently did have a pilonidal cyst surgery patient noticed to have some drainage from the area concerning for possible infected cyst likely from enteric gram-negative -we will obtain blood cultures local culture currently growing E. coli strep presumptive MRSA and bacteroids -patient is status post surgical drainage of the abscess no deep wound and no bone is palpable -patient to continue with vancomycin Rocephin and Flagyl waiting for outpatient antibiotic arrangement Objective - Vital Signs Vital signs: Vital Signs Temp 97.9 F 03/09/24 04:00 Pulse 93 03/09/24 08:12 Resp 20 03/09/24 08:12 BP 133/67 03/09/24 08:12 Pulse Ox 100 03/09/24 08:12 FiO2 Intake & Output 03/08/24 03/09/24 03/09/24 18:59 06:59 18:59 Intake Total 780 360 Output Total 1700 200 Balance -920 -200 360 Weight 117.934 kg Intake: Oral 780 360 Output: Urine 1700 200 Other: Voiding Method Toilet Toilet Toilet Urinal Urinal Urinal # Bowel Movements 1 - Exam GENERAL: The patient is alert and oriented x3, not in any acute distress. Well developed, well nourished. HEENT: Pupils are round an d equally reacting to light. EOMI. No scleral icterus. Does have conjunctival pallor. Normocephalic, atraumatic. No pharyngeal erythema. No thyromegaly. CARDIOVASCULAR: S1 and S2 present. No murmurs, rubs, or gallops. PULMONARY: Chest is clear to auscultation, no wheezing or crackles. ABDOMEN: Soft, nontender, nondistended, normoactive bowel sounds. No palpable organomegaly. MUSCULOSKELETAL: No joint swelling or deformity. EXTREMITIES: No cyanosis, clubbing, or pedal edema. NEUROLOGICAL: Gross neurological examination did not reveal any focal deficits. SKIN: No rashes. As mentioned in the HPI there is a small slit on a healed scar on patient's lower back with evidence of purulent brown drainage. - Labs CBC & Chem 7: 03/09/24 06:57 03/09/24 06:57 Labs: Abnormal Lab Results - Last 24 Hours (Table) 03/08/24 03/09/24 03/09/24 Range/Units 11:46 06:57 06:57 RBC 3.23 L (4.30-5.90) m/uL Hgb 10.7 L (13.0-17.5) gm/dL Hct 31.8 L (39.0-53.0) % RDW 16.5 H (11.5-15.5) % Potassium 3.3 L (3.5-5.1) mmol/L Chloride 111 H (98-107) mmol/L POC Glucose (mg/dL) 120 H (70-110) mg/dL Calcium 7.9 L (8.4-10.2) mg/dL Microbiology - Last 24 Hours (Table) 03/04/24 18:19 Gram Stain - Final Buttock Wound Culture - Final Methicillin resist S. aureus Strep A Escherichia coli Assessment and Plan Assessment: -Nausea vomiting diarrhea: Probably gastroenteritis or gastritis patient will be started on IV fluids, symptoms have improved at this time. -Acute renal failure baseline creatinine is normal at baseline few months ago. Patient will be started and continued on IV fluids. Renal function has normalized. -Severe anemia unknown whether patient has acute blood loss clinically patient denies any acute blood loss symptoms, patient has elevated MCV B12 levels were obtained oncology evaluated the patient patient does have pancytopenia. His blood counts are normalizing. -Pancytopenia and macrocytosis his B12 level is WNL. -Nonhealing ulceration to the sacral region where he has had prior pilonoidal cyst surgery with concern for fistua. General surgery consulted and local wound care in place with absorptive silver. Patient will be undergoing a CT scan of the sacrum today. -Anxiety and depression -Adrenal insufficiency increasing the dose of hydrocortisone to cope up with the hospitalization stress. Adrenal crisis leading to petechial rash. -Patient is also on desmopressin which will be continued -Patient did not give any clear history of seizures but patient is on multiple antiseizure medications which are being resumed at this time -Chordoma: patient has had surgery and radiation in the past on chemotherapy. GI prophylaxis Full Code Plan DVT prophylaxis: Ambulation, because of severely low hemoglobin and mild thrombocytopenia holding of any pharmacological DVT prophylaxis and patient is fairly ambulatory at this time.
[2024-03-09 17:01] LABS: Glucose,Whole Blood 78 mg/dL (70-110)
[2024-03-09 20:15] LABS: Glucose,Whole Blood 99 mg/dL (70-110)
[2024-03-10] MEDS: VANCOMYCIN TROUGH DUE 1 EACH MISC MISCELLANE ONE (05:02)
[2024-03-10 05:06] LABS: African American GFR (CKD) >90 (>60 ml/min/1.73 sqM); Anion Gap 3 mmol/L; Blood Urea Nitrogen 13 mg/dL (9-20); Calcium 8.3 mg/dL (8.4-10.2); Carbon Dioxide 24 mmol/L (22-30); Chloride 109 mmol/L (98-107); Glucose 122 mg/dL (74-99); Non-African American GFR(CKD) >90 (>60 ml/min/1.73 sqM); Potassium 3.4 mmol/L (3.5-5.1); Sodium 136 mmol/L (137-145)
[2024-03-10 05:10] LABS: Anisocytosis Slight; HCT 32.2 % (39.0-53.0); HGB 10.6 gm/dL (13.0-17.5); MCH 32.5 pg (25.0-35.0); MCV 98.4 fL (80.0-100.0); Macrocytosis Slight; Mean Platelet Volume 8.4; Platelet Count 216 k/uL (150-450); Poikilocytosis Slight; RBC 3.28 m/uL (4.30-5.90)
[2024-03-10] MEDS ORDERED: Potassium Replacement Protocol 1 EACH MISC MISCELLANE PRN (05:23)
[2024-03-10 05:31] LABS: Band Neutrophils % 2 %; Lymphocytes # (M) 0.99 k/uL (1.0-4.8); Monocytes # (M) 0.53 k/uL (0-1.0); Neutrophils % (M) 75 %; Nucleated Red Blood Cells 6 /100 WBC (0-0); Total Cells Counted 200; WBC 6.6 k/uL (3.8-10.6)
[2024-03-10 05:32] LABS: Anisocytosis (M) Present; Ovalocytes Present; Polychromasia Present
[2024-03-10] MEDS: POTASSIUM CHLORIDE ER 20 MEQ TAB.ER PO SCH (06:12)
[2024-03-10 06:13] LABS: Glucose,Whole Blood 103 mg/dL (70-110)
--- NOTE | 2024-03-10 10:36 | P.PN ---
Subjective Progress Note Date: 03/10/24 Principal diagnosis: Sacral decubitus ulcer Patient doing well today. Denies pain. Continuing to have local wound care. Afebrile. Objective - Vital Signs Vital signs: Vital Signs Temp 98.3 F 03/10/24 08:30 Pulse 69 03/10/24 08:30 Resp 17 03/10/24 08:30 BP 140/66 03/10/24 08:30 Pulse Ox 96 03/10/24 08:30 FiO2 Intake & Output 03/09/24 03/10/24 03/10/24 18:59 06:59 18:59 Intake Total 360 Output Total 2500 1500 Balance -2140 -1500 Intake: Oral 360 Output: Urine 2500 1500 Other: Voiding Method Toilet Toilet Urinal Urinal - Exam Sacral wound with mild exudate, no tenderness, no erythema - Labs CBC & Chem 7: 03/10/24 04:47 03/10/24 04:47 Labs: Abnormal Lab Results - Last 24 Hours (Table) 03/09/24 03/10/24 03/10/24 Range/Units 11:40 04:47 04:47 RBC 3.28 L (4.30-5.90) m/uL Hgb 10.6 L (13.0-17.5) gm/dL Hct 32.2 L (39.0-53.0) % RDW 17.0 H (11.5-15.5) % Lymphocytes # (Manual) 0.99 L (1.0-4.8) k/uL Nucleated RBCs 6 H (0-0) /100 WBC Sodium 136 L (137-145) mmol/L Potassium 3.4 L (3.5-5.1) mmol/L Chloride 109 H (98-107) mmol/L Glucose 122 H (74-99) mg/dL POC Glucose (mg/dL) 139 H (70-110) mg/dL Calcium 8.3 L (8.4-10.2) mg/dL Microbiology - Last 24 Hours (Table) 03/04/24 22:01 Blood Culture - Final Blood Assessment and Plan (1) Non-pressure chronic ulcer of skin of other sites with fat layer exposed Narrative/Plan: 43-year-old male with decubitus ulcer. Continue local wound care. Continue antibiotics per infectious disease. Current Visit: Yes Status: Acute Code(s): L98.492 - NON-PRS CHRONIC ULCER OF SKIN OF SITES W FAT LAYER EXPOSED SNOMED Code(s): 94107963
[2024-03-10] MEDS: POTASSIUM CHLORIDE ER 10 MEQ TAB.ER.PRT PO SCH (11:00)
[2024-03-10 12:16] LABS: Glucose,Whole Blood 86 mg/dL (70-110)
[2024-03-10] MEDS: SODIUM HYPOCHLORITE 0.5% 480 ML BOT MISCELLANE SCH (18:51)
[2024-03-10 20:41] LABS: Glucose,Whole Blood 91 mg/dL (70-110)
[2024-03-11 06:13] LABS: Glucose,Whole Blood 99 mg/dL (70-110)
--- NOTE | 2024-03-11 09:33 | P.PN ---
Subjective Progress Note Date: 03/11/24 Principal diagnosis: Sacral decubitus ulcer No new complaints today. Denies abdominal pain or wound related discomforts. He is afebrile. Objective - Vital Signs Vital signs: Vital Signs Temp 98.1 F 03/10/24 21:42 Pulse 66 03/11/24 01:31 Resp 17 03/11/24 01:31 BP 117/72 03/11/24 01:31 Pulse Ox 96 03/11/24 01:31 FiO2 Intake & Output 03/10/24 03/11/24 03/11/24 18:59 06:59 18:59 Intake Total 1140 Output Total 2100 1475 Balance -960 -1475 Intake: Oral 1140 Output: Urine 2100 1475 Other: Voiding Method Toilet Toilet Urinal Urinal - Exam Sacral wound with mild exudate, no tenderness, no erythema - Labs CBC & Chem 7: 03/10/24 04:47 03/10/24 04:47 Assessment and Plan (1) Non-pressure chronic ulcer of skin of other sites with fat layer exposed Narrative/Plan: Patient doing well today. Continue local wound care. Continue antibiotics per infectious disease. Current Visit: Yes Status: Acute Code(s): L98.492 - NON-PRS CHRONIC ULCER OF SKIN OF SITES W FAT LAYER EXPOSED SNOMED Code(s): 78672649
[2024-03-11 09:45] LABS: African American GFR (CKD) >90 (>60 ml/min/1.73 sqM); Anion Gap 1 mmol/L; Blood Urea Nitrogen 15 mg/dL (9-20); Carbon Dioxide 28 mmol/L (22-30); Chloride 108 mmol/L (98-107); Glucose 91 mg/dL (74-99); Non-African American GFR(CKD) >90 (>60 ml/min/1.73 sqM); Potassium 3.5 mmol/L (3.5-5.1); Sodium 137 mmol/L (137-145)
[2024-03-11 11:42] LABS: Glucose,Whole Blood 91 mg/dL (70-110)
--- NOTE | 2024-03-11 17:09 | P.PN ---
Subjective Progress Note Date: 03/10/24 Principal diagnosis: Reason for follow-up is infected sacral wound Patient is a 43-year male with multiple comorbidities including PTSD anxiety intracranial trauma s/p surgery and recently did have surgery for pilonidal cyst presenting to the hospital complaining of nausea vomiting as well as diarrhea, patient was noticed to have drainage from his sacral wound probably this consultation. On today's visit that is 03/10/2024, the patient continues to be afebrile, the patient is on room air and breathing comfortably, the Pt denies having any chest pain or cough, the patient denies having any abdominal pain no vomiting or any diarrhea, rash to the left side of the body has decreased in intensity denies any worsening pain to the sacral wound area. The patient white count 6.6, creatinine 0.74 Objective - Vital Signs Vital signs: Vital Signs Temp 97.9 F 03/10/24 00:37 Pulse 80 03/10/24 00:37 Resp 17 03/10/24 00:37 BP 130/61 03/10/24 00:37 Pulse Ox 98 03/10/24 00:37 FiO2 Intake & Output 03/09/24 03/10/24 03/10/24 18:59 06:59 18:59 Intake Total 360 Output Total 2500 1500 Balance -2140 -1500 Intake: Oral 360 Output: Urine 2500 1500 Other: Voiding Method Toilet Toilet Urinal Urinal - Exam GENERAL DESCRIPTION: Middle-age male lying in bed in no distress RESPIRATORY SYSTEM: Unlabored breathing , decreased breath sounds at bases HEART: S1 S2 regular rate and rhythm , ABDOMEN: Soft , no tenderness Sacral wound is currently dressed Did have erythematous rash mostly to the left side of the body - Labs CBC & Chem 7: 03/10/24 04:47 03/11/24 08:55 Labs: Abnormal Lab Results - Last 24 Hours (Table) 03/09/24 03/10/24 03/10/24 Range/Units 11:40 04:47 04:47 RBC 3.28 L (4.30-5.90) m/uL Hgb 10.6 L (13.0-17.5) gm/dL Hct 32.2 L (39.0-53.0) % RDW 17.0 H (11.5-15.5) % Lymphocytes # (Manual) 0.99 L (1.0-4.8) k/uL Nucleated RBCs 6 H (0-0) /100 WBC Sodium 136 L (137-145) mmol/L Potassium 3.4 L (3.5-5.1) mmol/L Chloride 109 H (98-107) mmol/L Glucose 122 H (74-99) mg/dL POC Glucose (mg/dL) 139 H (70-110) mg/dL Calcium 8.3 L (8.4-10.2) mg/dL Microbiology - Last 24 Hours (Table) 03/04/24 22:01 Blood Culture - Final Blood Assessment and Plan (1) Abscess Current Visit: Yes Status: Acute Code(s): L02.91 - CUTANEOUS ABSCESS, UNSPECIFIED SNOMED Code(s): 057163172 (2) Non-pressure chronic ulcer of skin of other sites with fat layer exposed Current Visit: Yes Status: Acute Code(s): L98.492 - NON-PRS CHRONIC ULCER OF SKIN OF SITES W FAT LAYER EXPOSED SNOMED Code(s): 82495654 (3) Rash Current Visit: Yes Status: Acute Code(s): R21 - RASH AND OTHER NONSPECIFIC SKIN ERUPTION SNOMED Code(s): 757917021 Plan: 1patient presented to hospital with acute nausea vomiting and diarrhea in this patient who recently did have a pilonidal cyst surgery patient noticed to have some drainage from the area concerning for possible infected cyst likely from enteric gram-negative 2-we will obtain blood cultures local culture currently growing E. coli strep presumptive MRSA and bacteroids 3-patient is status post surgical drainage of the abscess no deep wound and no bone is palpable 4-patient currently being treated with vancomycin Rocephin and Flagyl, patient is currently waiting for outpatient antibiotic arrangement 5rash mostly to the left half of the body questionably contact dermatitis will apply calamine lotion Dictation was produced using [employer] dictation software. please excuse any grammatical, word or spelling errors. Time with Patient: Less than 30
--- NOTE | 2024-03-11 17:26 | P.PN ---
Subjective Progress Note Date: 03/11/24 43-year-old male with history of chordoma of the brain, slow-growing tumor and is on oral chemotherapy on daily basis came in with complaints of nausea vomiting diarrhea without any blood in the stools, hematemesis or dark stools. Patient had a significantly low hemoglobin of around 6.2 on admission patient previous hemoglobin was 12 few months ago patient has macrocytic anemia. Patient patient also has pancytopenia. B12 and multiple other tests were ordered by hematology who evaluated the patient. Patient also has a renal insufficiency for which patient takes 10 mg hydrocortisone twice a day dose of which is being increased and now as patient is hospitalized. Patient had any fever chills patient denies any recent antibiotic use. Patient denies any flulike symptoms. 03/09/2024 --the patient remains to be afebrile, patient is on room air not requiring supplemental oxygen and denies any shortness of breath no chest pain or cough.Patient denies having any nausea or vomiting, no abdominal pain and no diarrhea complaining of some bleeding from his sacral wound but no worsening pain. Also have developed a rash mostly to the left half of the body left half of the body Patient white count is 5.1 creatinine 0.82 patient presented to hospital with acute nausea vomiting and diarrhea in this patient who recently did have a pilonidal cyst surgery patient noticed to have some drainage from the area concerning for possible infected cyst likely from enteric gram-negative -we will obtain blood cultures local culture currently growing E. coli strep presumptive MRSA and bacteroids -patient is status post surgical drainage of the abscess no deep wound and no bone is palpable -patient to continue with vancomycin Rocephin and Flagyl waiting for outpatient antibiotic arrangement 03/11/2024 Patient seen in follow-up today continues on antibiotics obstructive disease following. General surgery following as well patient is status post debridement of the decubitus ulcer. Discharge planning in progress and awaiting antibiotic recommendations as well as home care and insurance authorization for continued IV antibiotic therapy. Patient is afebrile with no reports of chest pain or shortness of breath. Patient has been tolerating diet and reports to feeling improved and would like to go home. Review of systems: Constitutional: No reports of fatigue, fever, or chills Cardiovascular: No reports of chest pain or palpitations Respiratory: No reports of shortness of breath or cough GI: No reports of nausea, vomiting, or diarrhea : No reports of dysuria or retention Neurovascular: reports of generalized weakness some chronic leg spasms All medications have been reviewed Physical exam: GENERAL: The patient is alert and oriented x3, not in any acute distress. Well developed, well nourished. HEENT: Pupils are round an d equally reacting to light. EOMI. No scleral icterus. Does have conjunctival pallor. Normocephalic, atraumatic. No pharyngeal erythema. No thyromegaly. CARDIOVASCULAR: S1 and S2 present. No murmurs, rubs, or gallops. PULMONARY: Chest is clear to auscultation, no wheezing or crackles. ABDOMEN: Soft, nontender, nondistended, normoactive bowel sounds. No palpable organomegaly. MUSCULOSKELETAL: No joint swelling or deformity. EXTREMITIES: No cyanosis, clubbing, or pedal edema. NEUROLOGICAL: Gross neurological examination did not reveal any focal deficits. SKIN: No rashes. As mentioned in the HPI there is a small slit on a healed scar on patient's lower back with evidence of purulent brown drainage. Assessment: Chest pain-Nausea vomiting diarrhea: Secondary to gastroenteritis or gastritis, improved -Acute renal failure, improved -Severe anemia unknown whether patient has acute blood loss clinically patient d enies any acute blood loss symptoms, patient has elevated MCV B12 levels were obtained oncology evaluated the patient patient does have pancytopenia. His blood counts are normalizing. -Pancytopenia and macrocytosis his B12 level is WNL. -Nonhealing ulceration to the sacral region where he has had prior pilonoidal cyst surgery with concern for fistua. Status post debridement -Anxiety and depression history -Adrenal insufficiency history. Adrenal crisis leading to petechial rash. 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 -GI prophylaxis -DVT prophylaxis Full Code Plan Patient is continued on antibiotics with infectious disease following and has a PICC line and is being arranged for outpatient IV antibiotics General surgery following status post debridement of the sacral decubitus ulcer and will continue with local wound care and has been cleared for outpatient follow-up Case management/social work Awaiting for discharge planning needs including verifying insurance coverage of IV antibiotics outpatient Follow-up on repeat labs and continue to monitor closely Possible discharge planning in the next 24 hours. Due to multiple complex medical issues, prognosis is guarded The impression and plan of care has been dictated by Yolanda Guo, Nurse Practitioner as directed. Dr. Dallas MD I have performed a history and examination and MDM of this patient, discussed the same with the dictator, and agree with the dictator's assessment and plan as written ,documented as a scribe. Based on total visit time, I have performed more than 50% of the visit. Objective - Vital Signs Vital signs: Vital Signs Temp 98.1 F 03/11/24 14:31 Pulse 87 03/11/24 14:31 Resp 18 03/11/24 14:31 BP 149/83 03/11/24 14:31 Pulse Ox 99 03/11/24 14:31 FiO2 Intake & Output 03/10/24 03/11/24 03/11/24 18:59 06:59 18:59 Intake Total 1140 236 Output Total 2100 1475 1150 Balance -514 -1236 -404 Intake: Oral 1140 236 Output: Urine 2100 1475 1150 Other: Voiding Method Toilet Toilet Toilet Urinal Urinal Urinal # Voids 1 - Labs CBC & Chem 7: 03/10/24 04:47 03/11/24 08:55 Labs: Abnormal Lab Results - Last 24 Hours (Table) 03/11/24 Range/Units 08:55 Chloride 108 H (98-107) mmol/L Calcium 8.0 L (8.4-10.2) mg/dL
[2024-03-11 20:48] VITALS: RESP 16
[2024-03-12 04:26] LABS: African American GFR (CKD) >90 (>60 ml/min/1.73 sqM); Non-African American GFR(CKD) >90 (>60 ml/min/1.73 sqM)
[2024-03-12] MEDS: VANCOMYCIN TROUGH DUE 1 EACH MISC MISCELLANE ONE (07:21)
[2024-03-12] MEDS ORDERED: VANCOMYCIN 1,500 MG in SODIUM CHLORIDE 0.9% 500 ML 500 ML IVPB SCH (09:00)
[2024-03-12 12:45] VITALS: BP 148/75; PULSE 66; TEMP 98.2
--- NOTE | 2024-03-12 13:06 | P.PN ---
Subjective Progress Note Date: 03/11/24 Principal diagnosis: Reason for follow-up is infected sacral wound Patient is a 43-year male with multiple comorbidities including PTSD anxiety intracranial trauma s/p surgery and recently did have surgery for pilonidal cyst presenting to the hospital complaining of nausea vomiting as well as diarrhea, patient was noticed to have drainage from his sacral wound probably this consultation. On today's visit that is 03/11/2024, Patient is afebrile patient is currently on room air and denies having any shortness of breath, the patient denies any chest pain or cough, the patient denies any nausea vomiting did not have any abdominal pain and no diarrhea, denies any worsening drainage from the sacral wound. Patient did have a creatinine of 0.87 no CBC was done today Objective - Vital Signs Vital signs: Vital Signs Temp 98.1 F 03/11/24 14:31 Pulse 87 03/11/24 14:31 Resp 18 03/11/24 14:31 BP 149/83 03/11/24 14:31 Pulse Ox 99 03/11/24 14:31 FiO2 Intake & Output 03/10/24 03/11/24 03/11/24 18:59 06:59 18:59 Intake Total 1140 236 Output Total 2100 1475 1150 Balance -969 -2293 -914 Intake: Oral 1140 236 Output: Urine 2100 1475 1150 Other: Voiding Method Toilet Toilet Toilet Urinal Urinal Urinal # Voids 1 - Exam GENERAL DESCRIPTION: Middle-age male lying in bed in no distress RESPIRATORY SYSTEM: Unlabored breathing , decreased breath sounds at bases HEART: S1 S2 regular rate and rhythm , ABDOMEN: Soft , no tenderness Sacral wound is currently dressed Did have erythematous rash mostly to the left side of the body - Labs CBC & Chem 7: 03/10/24 04:47 03/12/24 03:57 Labs: Abnormal Lab Results - Last 24 Hours (Table) 03/11/24 Range/Units 08:55 Chloride 108 H (98-107) mmol/L Calcium 8.0 L (8.4-10.2) mg/dL Assessment and Plan (1) Abscess Current Visit: Yes Status: Acute Code(s): L02.91 - CUTANEOUS ABSCESS, UNSPECIFIED SNOMED Code(s): 517809789 (2) Non-pressure chronic ulcer of skin of other sites with fat layer exposed Current Visit: Yes Status: Acute Code(s): L98.492 - NON-PRS CHRONIC ULCER OF SKIN OF SITES W FAT LAYER EXPOSED SNOMED Code(s): 23490310 (3) Rash Current Visit: Yes Status: Acute Code(s): R21 - RASH AND OTHER NONSPECIFIC SKIN ERUPTION SNOMED Code(s): 292267536 Plan: 1patient presented to hospital with acute nausea vomiting and diarrhea in this patient who recently did have a pilonidal cyst surgery patient noticed to have some drainage from the area concerning for possible infected cyst likely from enteric gram-negative 2-we will obtain blood cultures local culture currently growing E. coli strep presumptive MRSA and bacteroids 3-patient is status post surgical drainage of the abscess no deep wound and no bone is palpable 4-patient to continue with vancomycin Rocephin and Flagyl x 10 days on discharge and close outpatient follow-up 5rash mostly to the left half of the body questionably contact dermatitis will apply calamine lotion Dictation was produced using [employer] dictation software. please excuse any grammatical, word or spelling errors. Time with Patient: Less than 30
--- NOTE | 2024-03-12 13:19 | P.PN ---
Subjective Progress Note Date: 03/12/24 CHIEF COMPLAINT: Chronic right gluteal wound HISTORY OF PRESENT ILLNESS: Patient is status post incision and drainage of right gluteal abscess with unroofing of cutaneous fistula on 03/07/2024. Patient reports his pain is controlled. They have been changing his dressing. He is scheduled for discharge today. PHYSICAL EXAM: VITAL SIGNS: Reviewed. GENERAL: Well-developed in no acute distress. ABDOMEN: Soft. Nondistended. Nontender. NEUROLOGIC: Alert and oriented. Cranial nerves II through XII grossly intact. ASSESSMENT: 1. Chronic right gluteal wound status post incision and drainage of right gluteal abscess with unroofing of cutaneous fistula 2. History of pilonidal cyst with multiple surgeries PLAN: -Patient is stable for discharge from surgical standpoint -Discharge antibiotics per infectious disease -Continue local wound care Physician Auctioneer Art note has been reviewed by physician. Signing provider agrees with the documented findings, assessment, and plan of care. Objective - Vital Signs Vital signs: Vital Signs Temp 98.2 F 03/12/24 11:58 Pulse 66 03/12/24 11:58 Resp 16 03/12/24 11:58 BP 148/75 03/12/24 11:58 Pulse Ox 100 03/12/24 11:58 FiO2 Intake & Output 03/11/24 03/12/24 03/12/24 18:59 06:59 18:59 Intake Total 236 600 Output Total 1150 Balance -914 600 Intake: Oral 236 600 Output: Urine 1150 Other: Voiding Method Toilet Toilet Urinal Urinal # Voids 1 - Labs CBC & Chem 7: 03/10/24 04:47 03/12/24 03:57
--- NOTE | 2024-03-12 16:34 | P.PN ---
Subjective Progress Note Date: 03/12/24 Principal diagnosis: Reason for follow-up is infected sacral wound Patient is a 43-year male with multiple comorbidities including PTSD anxiety intracranial trauma s/p surgery and recently did have surgery for pilonidal cyst presenting to the hospital complaining of nausea vomiting as well as diarrhea, patient was noticed to have drainage from his sacral wound probably this consultation. On today's visit that is 03/12/2024, patient has been afebrile, patient is erin athing comfortably and is currently on room air, patient denies having any significant cough no chest pain shortness of breath, patient denies nausea vomiting or diarrhea and no abdominal pain, the patient has pain to the lower back or any worsening rash or itching. Patient did have a creatinine 0.76 Vanco trough was 24.8 Objective - Vital Signs Vital signs: Vital Signs Temp 98.2 F 03/12/24 11:58 Pulse 66 03/12/24 11:58 Resp 16 03/12/24 11:58 BP 148/75 03/12/24 11:58 Pulse Ox 100 03/12/24 11:58 FiO2 Intake & Output 03/11/24 03/12/24 03/12/24 18:59 06:59 18:59 Intake Total 236 600 Output Total 1150 Balance -914 600 Intake: Oral 236 600 Output: Urine 1150 Other: Voiding Method Toilet Toilet Urinal Urinal # Voids 1 - Exam GENERAL DESCRIPTION: Middle-age male lying in bed in no distress RESPIRATORY SYSTEM: Unlabored breathing , decreased breath sounds at bases HEART: S1 S2 regular rate and rhythm , ABDOMEN: Soft , no tenderness Sacral wound is currently dressed Did have erythematous rash mostly to the left side of the body - Labs CBC & Chem 7: 03/10/24 04:47 03/12/24 03:57 Assessment and Plan (1) Abscess Current Visit: Yes Status: Acute Code(s): L02.91 - CUTANEOUS ABSCESS, UNSPECIFIED SNOMED Code(s): 734297392 (2) Non-pressure chronic ulcer of skin of other sites with fat layer exposed Current Visit: Yes Status: Acute Code(s): L98.492 - NON-PRS CHRONIC ULCER OF SKIN OF SITES W FAT LAYER EXPOSED SNOMED Code(s): 79496175 (3) Rash Current Visit: Yes Status: Acute Code(s): R21 - RASH AND OTHER NONSPECIFIC SKIN ERUPTION SNOMED Code(s): 572916784 Plan: 1patient presented to hospital with acute nausea vomiting and diarrhea in this patient who recently did have a pilonidal cyst surgery patient noticed to have some drainage from the area concerning for possible infected cyst likely from enteric gram-negative 2-we will obtain blood cultures local culture currently growing E. coli strep presumptive MRSA and bacteroids 3-patient is status post surgical drainage of the abscess no deep wound and no bone is palpable 4-patient to continue with vancomycin Rocephin and Flagyl x 10 days on discharge prescription has been provided the child support case officer also discussed with the mother on the phone 5rash mostly to the left half of the body questionably contact dermatitis will apply calamine lotion Dictation was produced using [employer] dictation software. please excuse any grammatical, word or spelling errors. Time with Patient: Less than 30
--- NOTE | 2024-03-14 12:34 | CDI ---
Documentation Clarification Form Date: 03/14/2024 12:19:27 PM From: Clara Santa Admit Date: 03/04/2024 02:45:00 AM Patient Name: Kurtis Ruvalcaba Visit Number: [id number] Discharge Date: 03/12/2024 05:09:00 PM ATTENTION: The Clinical Documentation Specialists (CDI) and [facility] Coding Staff appreciate your assistance in clarifying documentation. Please respond to the clarification below the line at the bottom and electronically sign. The CDI & [facility] Coding staff will review the response and follow-up if needed. Please note: Queries are made part of the Legal Health Record. If you have any questions, please contact the author of this message via ITS. Dr. Raman Woodard Conflicting documentation has been found in the medical record. Please provide additional clarification regarding the procedure is requested. Per the Operative Report from 03/07/24 the patient underwent an incision and drainage of a right gluteal abscess with un-hillary of cutaneous fistula. the subcutaneous tissue was unroofed over the fistula tract. The abscess cavity was drained. The wound was packed with wet-to-dry Kerlix dressing. Per the progress notes 03/08/24 and 03/11/24 The patient is status post a debridement of the wound. History/Risk Factors: patient is a 43 year old male with a history of chordoma of the brain, slow growing tumor, and is on oral chemotherapy. Also has renal insufficiency, and a history of a pilonidal cyst with surgery. Clinical Indicators: patient presented with nausea, vomiting, and diarrhea. Diagnosed with likely gastroenteritis or gastritis. Has ANIL, severe anemia, pancytopenia, adrenal crisis, and was found to have an abscess and open sacral wound/ulcer with cutaneous fistula. Treatment: patient underwent an incision and drainage of right gluteal abscess with unroofing of cutaneous fistula Please clarify the type of procedure performed regarding unroofing subcutaneous tissue over the fistula tract: [ xx ] Excisional debridement (the removal of necrotic, devitalized tissue or slough by means of cutting away of tissue) [ ] Non-excisional debridement (the removal of necrotic, devitalized tissue or slough by means of flushing, brushing, or washing. (Irrigation) [ ] Other; please specify [ ] Unable to determine Five elements required for accurate and compliant documentation of a debridement: Technique used (e.g., excisional, excised, cutting, brushing, jet lavage etc.) Instrument(s) used (e.g., scalpel, curette, etc.) Nature of the tissue removed (e.g., necrotic, devitalized tissues, non-viable tissue, etc.) Appearance and size of the wound (e.g., down to fresh bleeding tissue, 7cm x 10cm, etc.) Depth of the debridement* (e.g., skin, subcutaneous tissue, fascia, muscle, bone, etc.) MTDD
--- NOTE | 2024-03-15 11:51 | CDI ---
Documentation Clarification Form Date: 03/15/2024 11:40:15 AM From: Sheyla Mendez RN, CCDS Phone: [phone] Admit Date: 03/04/2024 02:45:00 AM Patient Name: Kurtis Ruvalcaba Visit Number: [id number] Discharge Date: 03/12/2024 05:09:00 PM ATTENTION: The Clinical Documentation Specialists (CDI) and [facility] Coding Staff appreciate your assistance in clarifying documentation. Please respond to the clarification below the line at the bottom and electronically sign. The CDI & [facility] Coding staff will review the response and follow-up if needed. Please note: Queries are made part of the Legal Health Record. If you have any questions, please contact the author of this message via ITS. Dr. Bryson Haynes Pancytopenia is documented in the progress notes. Additional clarification regarding the etiology of pancytopenia is requested. History/Risk factors: Chordoma of the brain, slow growing tumor and is on oral chemotherapy on daily basis, renal insufficiency. Presented with c/o nausea, vomiting and diarrhea. Admitted with abscess of buttock and pancytopenia. Clinical indicators: 03/04 H&P: "history of chordoma of the brain, slow-growing tumor and is on oral chemotherapy on daily basis." 03/04 Oncology Consult: "Pancytopenia, new onset. Acute changes in counts may also be multifactorial including medications and cancer treatment exacerbated by acute infection." 03/03 Labs: WBC 2.8, Hgb 6.2, platelets 134 Treatment: Monitor CBC daily; 1 unit PRBC's on 03/04; Hold Abemaciclib 03/04 Oncology Consult: see above Please clarify the etiology of pancytopenia, if known: [ ] Pancytopenia due to chemotherapy [ ] Pancytopenia drug induced, specify drug [ ] Pancytopenia due to other, please specify [ ] Other condition, please specify ____ [ ] Unable to determine Pancytopenia due to chemotherapy MTDD
--- NOTE | 2024-03-16 06:26 | P.DS ---
Providers Date of admission: 03/04/24 02:45 Expected date of discharge: 03/12/24 Attending physician: Bryson Haynes Consults: 03/04/24 02:43 Consult Physician Urgent Consulting Provider: Rosette James Consult Reason/Comments: pancytopenia Do you want consulting provider notified?: Yes 03/04/24 14:09 Consult Physician Routine Consulting Provider: Levon Reich Consult Reason/Comments: recent pilondial cyst removal-concern source of infection Do you want consulting provider notified?: Yes 03/05/24 13:35 Consult Physician Routine Consulting Provider: Raman Woodard Consult Reason/Comments: open sacral ulceration r/o fistula Do you want consulting provider notified?: Yes Primary care physician: Darren Thornton Hospital Course: Final diagnosis Chest pain, ruled out ACS -Nausea vomiting diarrhea: Secondary to gastroenteritis or gastritis, improved -Acute renal failure, improved -Severe anemia unknown whether patient has acute blood loss clinically patient denies any acute blood loss symptoms, patient has elevated MCV B12 levels were obtained oncology evaluated the patient patient does have pancytopenia. His blood counts are normalizing. -Pancytopenia and macrocytosis due to chemotherapy -New onset purpura, rash on mostly just the left side of the body, concern for possible contact dermatitis, ruled out Waterhouse Friderichsen syndrome. Patient reports has had this type of rash previously, not new onset -Nonhealing ulceration to the sacral region where he has had prior pilonoidal cyst surgery with concern for fistua. Status post debridement -Anxiety and depression history -Adrenal insufficiency history. Adrenal crisis leading to petechial rash. 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 Patient follows at [facility] -GI prophylaxis -DVT prophylaxis Full Code Discharge disposition Patient is being discharged in a stable condition with guarded prognosis to home with home care. Patient will follow-up with Dr. Thornton in the outpatient setting upon discharge. Patient is to continue with antibiotics per ID recommendations and close outpatient follow-up with infectious disease, general surgery, wound care center as scheduled. Total time taken is greater than 35 minutes. Hospital course This is a 43-year-old male who was recently admitted with chest pain, ruled out ACS. Patient also noted to be having nausea vomiting diarrhea with acute kidney injury and sacral wound with multiple consultations following. Patient is status post I&D with general surgery with infectious disease following. Patient has received a PICC line and will continue on IV antibiotics outpatient. Patient to continue with local wound care. Patient also noted to have pancytopenia with severe anemia with hematology following likely secondary to chemotherapy. Patient will continue with wound care outpatient and close outpatient follow-up with consultations. Patient is medically stable and will be discharged today. Please refer to other consultation notes for further HPI. Currently no reports of chest pain, shortness of breath, or palpitations. Patient is afebrile. No reports of nausea or vomiting and patient is tolerating diet. Patient will be discharged home today. Home care is arranged. Guarded prognosis and high risk for readmissions given patient's significant comorbidities Physical exam: Gen: This is a 43-year-old male who is awake, alert and oriented x 3, well- developed, appears older than stated age, unkempt HEENT: Head is atraumatic, normocephalic. Pupils equal, round. Sclerae is anicteric. NECK: Supple. No JVD. No lymphadenopathy. No thyromegaly. LUNGS: Clear to auscultation. No wheezes or rhonchi. No intercostal retractions. HEART: Regular rate and rhythm. No murmur. ABDOMEN: Soft. Bowel sounds are present. No masses. No tenderness. EXTREMITIES: No pedal edema. No calf tenderness. NEUROLOGICAL: Patient is awake, alert and oriented x3. Cranial nerves 2 through 12 are grossly intact. Please refer to medication reconciliation sheet for a list of medications. The impression and plan of care has been dictated by Yolanda Guo, Nurse Practitioner as directed. Dr. Dallas MD I have performed a history and examination and MDM of this patient, discussed the same with the dictator, and agree with the dictator's assessment and plan as written ,documented as a scribe. Based on total visit time, I have performed more than 50% of the visit. Patient Condition at Discharge: Fair Plan - Discharge Summary Discharge Rx Participant: Yes New Discharge Prescriptions: New metroNIDAZOLE [Flagyl] 500 mg PO TID 10 Days #30 tab Calamine/Zinc Oxide Lotion [Calamine Lotion] 1 applic TOPICAL BID PRN #2 each PRN Reason: Skin Irritation Folic Acid 1 mg PO DAILY #30 tab Levothyroxine Sodium [Synthroid] 200 mcg PO DAILY@0630 30 Days #60 tab cefTRIAXone [Rocephin] 2 gm IVPB Q24H #10 ml Continue Loperamide HCl [Imodium A-D] 2 mg PO HS Hydrocortisone [Cortef] 10 mg PO BID Pyridoxine [Vitamin B-6] 50 mg PO DAILY Aspirin EC [Ecotrin Low Dose] 81 mg PO HS busPIRone HCL 15 mg PO TID Droxidopa [Northera] 300 mg PO TID methocarbamoL [Robaxin] 1,000 mg PO TID Omeprazole [PriLOSEC] 20 mg PO HS Desmopressin Acetate [Ddavp] 0.1 mg PO HS Venlafaxine HCl ER [Effexor XR] 150 mg PO DAILY Topiramate [Topamax] 75 mg PO BID Midodrine [ProAmatine] 5 mg PO TID lamoTRIgine [LaMICtal] 100 mg PO BID Desmopressin Acetate [Ddavp] 0.2 mg PO DAILY Abemaciclib [Verzenio] 200 mg PO BID Buprenorphine [Buprenorphine 20 MCG/HR] 20 mcg TRANSDERM WEEKLY Changed Potassium Chloride ER [K-Dur 10] 20 meq PO BID 30 Days #120 tab Discontinued Levothyroxine Sodium [Synthroid] 224 mcg PO DAILY Discharge Medication List Hydrocortisone [Cortef] 10 mg PO BID 04/12/18 [History] Loperamide HCl [Imodium A-D] 2 mg PO HS 04/12/18 [History] Aspirin EC [Ecotrin Low Dose] 81 mg PO HS 07/23/19 [History] Pyridoxine [Vitamin B-6] 50 mg PO DAILY 07/23/19 [History] busPIRone HCL 15 mg PO TID 07/23/19 [History] Abemaciclib [Verzenio] 200 mg PO BID 03/04/24 [History] Desmopressin Acetate [Ddavp] 0.1 mg PO HS 03/04/24 [History] Desmopressin Acetate [Ddavp] 0.2 mg PO DAILY 03/04/24 [History] Droxidopa [Northera] 300 mg PO TID 03/04/24 [History] Midodrine [ProAmatine] 5 mg PO TID 03/04/24 [History] Omeprazole [PriLOSEC] 20 mg PO HS 03/04/24 [History] Topiramate [Topamax] 75 mg PO BID 03/04/24 [History] Venlafaxine HCl ER [Effexor XR] 150 mg PO DAILY 03/04/24 [History] lamoTRIgine [LaMICtal] 100 mg PO BID 03/04/24 [History] methocarbamoL [Robaxin] 1,000 mg PO TID 03/04/24 [History] Buprenorphine [Buprenorphine 20 MCG/HR] 20 mcg TRANSDERM WEEKLY 03/09/24 [History] Calamine/Zinc Oxide Lotion [Calamine Lotion] 1 applic TOPICAL BID PRN #2 each 03/12/24 [Rx] Folic Acid 1 mg PO DAILY #30 tab 03/12/24 [Rx] Levothyroxine Sodium [Synthroid] 200 mcg PO DAILY@0630 30 Days #60 tab 03/12/24 [Rx] Potassium Chloride ER [K-Dur 10] 20 meq PO BID 30 Days #120 tab 03/12/24 [Rx] cefTRIAXone [Rocephin] 2 gm IVPB Q24H #10 ml 03/12/24 [Rx] metroNIDAZOLE [Flagyl] 500 mg PO TID 10 Days #30 tab 03/12/24 [Rx] Follow up Appointment(s)/Referral(s): Darren Thornton MD [Primary Care Provider] - 1-2 days (The office was not availble to take calls please call and make follow up appointment.) Tiffanie Staples,[facility] [NON-STAFF] - 1 Week (willl call to set up appointment any questions please call agency. ) [facility], [REFERRING] - 1 Week Levon Reich MD [STAFF PHYSICIAN] - 1 Week (I left a message for the office to call you if they do not call today please call and make follow up appointment.) Raman Woodard MD [STAFF PHYSICIAN] - 03/21/24 1:30 pm Patient Instructions/Handouts: Abscess Incision and Drainage (DC) Activity/Diet/Wound Care/Special Instructions: IV antibiotic - Vancomycin pharmacy to dose - sent to [facility] - they will deliver tonight between 5-8 Activity limited until follow-up Continue with current medication regimen Follow-up with primary care provider on discharge Follow-up with infectious disease outpatient Continue IV antibiotic therapy and home care outpatient Follow-up with general surgery outpatient in 1 to 2 weeks Continue local wound care Continue with Benadryl as needed for itching and also calamine lotion [facility] will see the pt tomorrow. Discharge Disposition: HOME WITH HOME HEALTH SERVICES
== END 2024-03-12 17:09 | disposition home health service (06) | DRG 570 ==
LOC: EC 22:10 → 3SCARD 03-04 02:45 → 5NMEDONC 03-11 14:11
PROVIDERS: ADMIT Hospitalist; ATTEND Hospitalist
PROC: 30233N1 Transfusion of Nonautologous Red Blood Cells into Peripheral Vein, Percutaneous Approach (ICD-10-PCS; principal; 2024-03-04)
PROC: 0JB90ZZ Excision of Buttock Subcutaneous Tissue and Fascia, Open Approach (ICD-10-PCS; 2024-03-07)
PROC: 02HV33Z Insertion of Infusion Device into Superior Vena Cava, Percutaneous Approach (ICD-10-PCS; 2024-03-08)
DX: L02.31 Cutaneous abscess of buttock (principal); D61.810 Antineoplastic chemotherapy induced pancytopenia; C41.0 Malignant neoplasm of bones of skull and face; N17.9 Acute kidney failure, unspecified; E27.2 Addisonian crisis; D75.89 Other specified diseases of blood and blood-forming organs; F41.9 Anxiety disorder, unspecified; F32.A Depression, unspecified; G40.909 Epilepsy, unspecified, not intractable, without status epilepticus; L89.152 Pressure ulcer of sacral region, stage 2; F17.290 Nicotine dependence, other tobacco product, uncomplicated; L98.8 Other specified disorders of the skin and subcutaneous tissue; M25.551 Pain in right hip; K52.9 Noninfective gastroenteritis and colitis, unspecified; R21 Rash and other nonspecific skin eruption; L25.9 Unspecified contact dermatitis, unspecified cause; K29.70 Gastritis, unspecified, without bleeding; G89.29 Other chronic pain; M79.606 Pain in leg, unspecified; F43.10 Post-traumatic stress disorder, unspecified; Z86.011 Personal history of benign neoplasm of the brain; Z79.60 Long term (current) use of unspecified immunomodulators and immunosuppressants; Z79.899 Other long term (current) drug therapy; Z79.890 Hormone replacement therapy; Z88.8 Allergy status to other drugs, medicaments and biological substances; Z92.3 Personal history of irradiation; Z79.52 Long term (current) use of systemic steroids
CPT/HCPCS: 36415; 36430; 36573; 71046; 74018; 80048; 80053; 80074; 80175; 80202; 81001; 82272; 82565; 82607; 82728; 82746; 83010; 83540; 83550; 83605; 83615; 83690; 83735; 83883; 84165; 84439; 84443; 85025; 85027; 85384; 85598; 85610; 85613; 85730; 85732; 86146; 86147; 86334; 86850; 86900; 86901; 86920; 87040; 87070; 87075; 87077; 87186; 87205; 87390; 87798; 93005; 96361; 96374; 96375; 96376; 99291

== ENCOUNTER 2024-08-02 23:26 | Emergency (ER) | payer MEDICARE, OTHER ==
[2024-08-02 23:31] VITALS: TEMP 98.1
[2024-08-03] MEDS: KETOROLAC 15 MG/ML 1 ML VIAL IM STA (00:33)
[2024-08-03] MEDS: HYDROmorphone 0.5 MG/0.5 ML SYRINGE IM STA ×2 (00:34→01:41)
--- NOTE | 2024-08-03 01:37 | ED ---
Extremity Problem HPI - General Chief complaint: Extremity Problem,Nontraumatic Stated complaint: Pain Time Seen by Provider: 08/02/24 23:50 Source: patient Mode of arrival: ambulatory Limitations: no limitations - History of Present Illness Initial comments: 43-year-old male presenting with chief complaint of chronic pain. Patient has chronic nerve pain to the right leg. States that tonight the pain is worse than usual. He denies any injury or trauma. He does wear a buprenorphine patch daily. States that the pain is periodic and worse when he lays down. No swelling or discoloration. No limitation in range of motion. Feels consistent with pain he has had before. - Related Data Home Medications Medication Instructions Recorded Confirmed Hydrocortisone [Cortef] 10 mg PO BID 04/12/18 03/04/24 Loperamide HCl [Imodium A-D] 2 mg PO HS 04/12/18 03/04/24 Aspirin EC [Ecotrin Low Dose] 81 mg PO HS 07/23/19 03/04/24 Pyridoxine [Vitamin B-6] 50 mg PO DAILY 07/23/19 03/04/24 busPIRone HCL 15 mg PO TID 07/23/19 03/04/24 Abemaciclib [Verzenio] 200 mg PO BID 03/04/24 03/04/24 Desmopressin Acetate [Ddavp] 0.1 mg PO HS 03/04/24 03/04/24 Desmopressin Acetate [Ddavp] 0.2 mg PO DAILY 03/04/24 03/04/24 Droxidopa [Northera] 300 mg PO TID 03/04/24 03/05/24 Midodrine [ProAmatine] 5 mg PO TID 03/04/24 03/04/24 Omeprazole [PriLOSEC] 20 mg PO HS 03/04/24 03/04/24 Topiramate [Topamax] 75 mg PO BID 03/04/24 03/04/24 Venlafaxine HCl ER [Effexor XR] 150 mg PO DAILY 03/04/24 03/04/24 lamoTRIgine [LaMICtal] 100 mg PO BID 03/04/24 03/04/24 methocarbamoL [Robaxin] 1,000 mg PO TID 03/04/24 03/04/24 Buprenorphine [Buprenorphine 20 20 mcg TRANSDERM WEEKLY 03/09/24 03/09/24 MCG/HR] Previous Rx's Medication Instructions Recorded Calamine/Zinc Oxide Lotion 1 applic TOPICAL BID PRN #2 each 03/12/24 [Calamine Lotion] Folic Acid 1 mg PO DAILY #30 tab 03/12/24 Levothyroxine Sodium [Synthroid] 200 mcg PO DAILY@0630 30 Days #60 03/12/24 tab Potassium Chloride ER [K-Dur 10] 20 meq PO BID 30 Days #120 tab 03/12/24 cefTRIAXone [Rocephin] 2 gm IVPB Q24H #10 ml 03/12/24 metroNIDAZOLE [Flagyl] 500 mg PO TID 10 Days #30 tab 03/12/24 Ketorolac [Toradol] 10 mg PO Q6HR PRN #12 tab 08/03/24 Allergies Allergy/AdvReac Type Severity Reaction Status Date / Time pregabalin Allergy Confusion Verified 08/02/24 23:31 Review of Systems ROS Statement: Those systems with pertinent positive or pertinent negative responses have been documented in the HPI. ROS Other: All systems not noted in ROS Statement are negative. 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 Date of last positivie culture/infection: 03/08/24 MDRO Source:: buttock Additional Past Surgical History / Comment(s): sinus surgery, skin flap Past Anesthesia/Blood Transfusion Reactions: No Reported Reaction Past Psychological History: Anxiety, Depression, PTSD Smoking Status: Vaper Past Alcohol Use History: None Reported Past Drug Use History: Marijuana - Past Family History Father Family Medical History: No Reported History Mother Family Medical History: No Reported History General Exam Limitations: no limitations General appearance: alert, in no apparent distress Head exam: Present: atraumatic, normocephalic Eye exam: Present: normal appearance, EOMI Neck exam: Present: normal inspection. Absent: meningismus Respiratory exam: Absent: respiratory distress Right Knee exam: Present: normal inspection, full ROM Lower Leg exam: Present: normal inspection, full ROM Neurological exam: Present: alert, oriented X3 Psychiatric exam: Present: normal affect Skin exam: Present: warm, dry Course Vital Signs 08/02/24 08/03/24 23:28 01:45 Temperature 98.1 F Pulse Rate 113 H 87 Respiratory 17 18 Rate Blood Pressure 122/76 151/80 O2 Sat by Pulse 98 100 Oximetry Medical Decision Making - Medical Decision Making Was pt. sent in by a medical professional or institution (, [facility], CERTIFIED WELDER, urgent care, hospital, or [facility]...) When possible be specific @ -No Did you speak to anyone other than the patient for history (EMS, parent, family, police, friend...)? What history was obtained from this source @ -No Did you review nursing and triage notes (agree or disagree)? Why? @ -I reviewed and agree with nursing and triage notes Were old charts reviewed (outside hosp., previous admission, EMS record, old EKG, old radiological studies, urgent care reports/EKG's, [facility] records)? Report findings @ -No old charts were reviewed Differential Diagnosis (chest pain, altered mental status, abdominal pain women, abdominal pain men, vaginal bleeding, weakness, fever, dyspnea, syncope, headache, dizziness, GI bleed, back pain, seizure, CVA, palpatations, mental health, musculoskeletal)? @ -Differential Musculoskeletal Muscular strain, contusion, ligament sprain, fracture, arthritis, septic arthritis, bursitis, cellulitis, muscle spasm, nerve compression, DVT, arterial occlusion, herpes zoster, electrolyte abnormality, tumor.... This is not meant to be in all inclusive list EKG interpreted by me (3pts min.). @ -As above X-rays interpreted by me (1pt min.). @ -None done CT interpreted by me (1pt min.). @ -None done U/S interpreted by me (1pt. min.). @ -None done What testing was considered but not performed or refused? (CT, X-rays, U/S, labs)? Why? @ -None What meds were considered but not given or refused? Why? @ -None Did you discuss the management of the patient with other professionals (professionals i.e. , NAMITA, CERTIFIED WELDER, lab, RT, psych nurse, director of social services, anode rebuilder, teacher, cavalry officer, case finishing machine adjuster)? Give summary @ -No Was smoking cessation discussed for >3mins.? @ -No Was critical care preformed (if so, how long)? @ -No Were there social determinants of health that impacted care today? How? (Homelessness, low income, unemployed, alcoholism, drug addiction, transportation, low edu. Level, literacy, decrease access to med. care, penitentiary, rehab)? @ -No Was there de-escalation of care discussed even if they declined (Discuss DNR or withdrawal of care, Hospice)? DNR status @ -No What co-morbidities impacted this encounter? (DM, HTN, Smoking, COPD, CAD, Cancer, CVA, ARF, Chemo, Hep., AIDS, mental health diagnosis, sleep apnea, morbid obesity)? @ -None Was patient admitted / discharged? Hospital course, mention meds given and route, prescriptions, significant lab abnormalities, going to OR and other pertinent info. @ -43-year-old male presenting with chief complaint of flareup of his chronic nerve pain to the right leg. Denies any new injury or trauma. He reports improvement after pain medication. Provided with Toradol for home. Discharged. Follow-up with PCP. Report back to ER with any new or worsening symptoms. Discussed return parameters and answered all questions. Patient conveyed verbal understanding and agreed to the plan. I discussed this case in detail with my attending Dr. Singh Undiagnosed new problem with uncertain prognosis? @ -No Drug Therapy requiring intensive monitoring for toxicity (Heparin, Nitro, Insulin, Cardizem)? @ -No Were any procedures done? @ -No Diagnosis/symptom? @ -Nerve pain of the right leg Acute, or Chronic, or Acute on Chronic? @ -Acute on chronic Uncomplicated (without systemic symptoms) or Complicated (systemic symptoms)? @ -Uncomplicated Side effects of treatment? @ -No Exacerbation, Progression, or Severe Exacerbation? @ -No Poses a threat to life or bodily function? How? (Chest pain, [place], [place], pneumonia, PE, COPD, DKA, ARF, appy, cholecystitis, CVA, Diverticulitis, Homicidal, Suicidal, threat to staff... and all critical care pts) @ -Unlikely Disposition Clinical Impression: Leg pain Disposition: HOME SELF-CARE Condition: Good Instructions (If sedation given, give patient instructions): Leg Pain (ED) Additional Instructions: Follow-up with your PCP. Report back to ER with any new or worsening symptoms. Prescriptions: Ketorolac [Toradol] 10 mg PO Q6HR PRN #12 tab PRN Reason: Pain Is patient prescribed a controlled substance at d/c from ED?: No Referrals: Darren Thornton MD [Primary Care Provider] - 1-2 days Time of Disposition: 01:37
[2024-08-03 02:02] VITALS: BP 151/80; PULSE 87; RESP 18
== END 2024-08-03 01:45 | disposition home or self-care (01) ==
LOC: EC 23:26
CPT/HCPCS: 96372; 99284